=== PATIENT | female | born 1955 | race Caucasian/White ===

== ENCOUNTER → 2023-04-26 | Outpatient (CLI) | payer MEDICARE, SELFPAY ==
[2023-04-26 08:15] VITALS: PULSE 102; PULSE 104; PULSE 105; PULSE 106; PULSE 107; PULSE 110; PULSE 82; PULSE 93; O2SAT 93; O2SAT 94; O2SAT 95; O2SAT 96
--- NOTE | 2023-04-27 05:49 | WT_ITS ---
PSN 6 Minute Walk Test 6 Minute Walk Test 6 Minute Walk Test: 6 Minute Walk Test PSN:6-Minute Walk Test Start: 04/26/23 08:20 Freq: Status: Active Protocol: [id number] Document 04/26/23 08:15 AE (Rec: 04/26/23 08:24 [facility] Desktop) 6 Minute Walk Test Date Performed 04/26/23 Time Performed 08:15 Height 5 ft 5 in Weight: 101.151 kg Weight in Pounds 223.[address]: Dr Powell Assistive device used: None Pre-test Oxygen Delivery Method Room Air Pulse Ox 96 Pulse Rate (60-100) 82 Dyspnea Joe Scale (0-10) 0.5 Exertion Joe Scale (6-20) 6 1st minute Oxygen Delivery Method Room Air Pulse Ox 93 Pulse Rate (60-100) 102 H 2nd minute Oxygen Delivery Method Room Air Pulse Ox 94 Pulse Rate (60-100) 107 H 3rd minute Oxygen Delivery Method Room Air Pulse Ox 96 Pulse Rate (60-100) 106 H 4th minute Oxygen Delivery Method Room Air Pulse Ox 95 Pulse Rate (60-100) 104 H 5th minute Oxygen Delivery Method Room Air Pulse Ox 93 Pulse Rate (60-100) 105 H 6th minute Oxygen Delivery Method Room Air Pulse Ox 94 Pulse Rate (60-100) 110 H Dyspnea Joe Scale (0-10) 1 Exertion Joe Scale (6-20) 12 Post-test Oxygen Delivery Method Room Air Pulse Ox 96 Pulse Rate (60-100) 93 Full Laps Walked 18 Partial Lap, Number of Tiles Walked 8 Total Distance Walked (ft) 1070 Interpretation Interpretation: The patient was able to ambulate 1070 feet over the course of 6 minutes on room air with no assistive devices or breaks. The patient experienced no significant desaturation, but did have persistent tachycardia throughout testing with a peak heart rate of 110 bpm. These findings are consistent with a cardiovascular limitation exercise tolerance. Recommendations Recommendations: No supplemental oxygen is indicated at this time.
== END | disposition home or self-care (01) ==
LOC: PSN 07:57
PROVIDERS: PCP Nurse Practitioner Family; Referring Provider Internal Medicine Critical Care Medicine; Visit Provider Internal Medicine Critical Care Medicine
DX: J44.89 Other specified chronic obstructive pulmonary disease (principal)
CPT/HCPCS: 94618

== ENCOUNTER → 2025-01-02 | Outpatient (CLI) | payer MEDICARE, SELFPAY ==
--- NOTE | 2025-01-02 07:31 | US_ITS ---
PROCEDURE: ABD LIMITED W/ ELASTOGRAPHY REASON FOR EXAM: ELEVATED LFT. MASLD COMPARISON: None. TECHNIQUE: Procedure Code: [id number] Modality: US Procedure: ABD LIMITED W/ ELASTOGRAPHY Right upper quadrant abdominal ultrasound. [facility] ElastQ Imaging shear wave elastography for non-invasive assessment of liver tissue stiffness. Cristiane EPIQ Elite. FINDINGS: LIVER: Size: Unremarkable Length: 17.3 cm Echotexture: Diffusely echogenic suggesting fatty infiltration Contour: Normal Lesions: None identified Elastography: EQI Med: 5.8 kPa EQI Med Jc: 1.39 m/s IQR/Med: 26 %* GALLBLADDER: Along the anterior wall of the gallbladder, there is a 3 mm calcification. No evidence of gallstones. COMMON BILE DUCT: Normal measuring 4 mm . PANCREAS: Normal Visualized portions of the right kidney are unremarkable. No right upper quadrant ascites. Spleen: The spleen measures 12 cm x 5.1 cm 5.3 cm. No focal lesion is seen. US/ABD Limited w/ Elastography IMPRESSION: NO TO MILD HEPATIC FIBROSIS Fatty infiltration of the liver. 3 mm calcification along the anterior wall of the gallbladder. Reference Values: SRU <1.37 m/s (5.7kPa): No to mild fibrosis 1.37 m/s - 2.2 m/s: Moderate to severe fibrosis >2.2 m/s (15kPa): Significant fibrosis / cirrhosis METAVIR Score F2 or higher: 1.34 m/s (5.7kPa) F3 or higher: 1.55 m/s (7.3kPa) F4: 1.80 m/s (10kPa) * If the IQR/Med is >30%, the variance in the measurements is a large and the a ccuracy of the measurement may be in question. Reading Location: [facility]
--- OUTSIDE RECORDS SUMMARY | 2025-01-02 07:40 | XMS RPT_ITS | CCD ---
Author Organization [facility] Care Team Providers Care Exploration Manager Name Role Phone Lev Narayanan DO Unavailable Unavailable Naomi Fung Unavailable Unavailable PHYSICIAN, NONE Primary Care Physician Unavailab le LORSON DAMAGE APPRAISER-DIECAST MACHINE OPERATOR, NAOMI Primary Care Physician JUAN MANUELSON DAMAGE APPRAISER-DIECAST MACHINE OPERATOR, NAOMI Primary Care Physician Dr. Abdirahman Powell Attending Provider [phone] Maryjo BAKERY HELPER, BAKERY HELPER-C [place] Primary Care Provider Dr. Abdirahman Powell Referring Provider Dr. Abdirahman Powell Other Provider Dr. Mono Navarrete Attending Provider [phone] JUAN MANUELSON DAMAGE APPRAISER-DIECAST MACHINE OPERATOR, NAOMI Attending Unavail able LORSON DAMAGE APPRAISER-DIECAST MACHINE OPERATOR, [place] Primary Care Unavail able LORSON DAMAGE APPRAISER-DIECAST MACHINE OPERATOR, NAOMI Attending Unavail able LORSON DAMAGE APPRAISER-DIECAST MACHINE OPERATOR, [place] Primary Care Unavail able LORSON DAMAGE APPRAISER-DIECAST MACHINE OPERATOR, NAOMI Attending Unavail able LORSON DAMAGE APPRAISER-DIECAST MACHINE OPERATOR, [place] Primary Care Unavail able LORSON DAMAGE APPRAISER-DIECAST MACHINE OPERATOR, NAOMI Attending Unavail able LORSON DAMAGE APPRAISER-DIECAST MACHINE OPERATOR, [place] Primary Care Unavail able LORSON DAMAGE APPRAISER-DIECAST MACHINE OPERATOR, NAOMI Attending Unavail able LORSON DAMAGE APPRAISER-DIECAST MACHINE OPERATOR, [place] Primary Care Unavail able LORSON DAMAGE APPRAISER-DIECAST MACHINE OPERATOR, NAOMI Attending Unavail able LORSON DAMAGE APPRAISER-DIECAST MACHINE OPERATOR, [place] Primary Care Unavail able LORSON DAMAGE APPRAISER-DIECAST MACHINE OPERATOR, NAOMI Attending Unavail able LORSON DAMAGE APPRAISER-DIECAST MACHINE OPERATOR, [facility] Unavail able Lorson BAKERY HELPER-C, [place] Primary Care Provider Maryjo PAYAN-CNaomi Referring Provider [phone] Ibis PAYAN-Aure Fair Attending Provider Checo WYATT, Dr. Napoles Attending Provider [phone] LORSON DAMAGE APPRAISER-DIECAST MACHINE OPERATOR, [place] Primary Care Unavail able LORSON DAMAGE APPRAISER-DIECAST MACHINE OPERATOR, NAOMI Attending Unavail able LORSON DAMAGE APPRAISER-DIECAST MACHINE OPERATOR, [place] Primary Care Unavail able LORSON DAMAGE APPRAISER-DIECAST MACHINE OPERATOR, NAOMI Attending Unavail able LORSON DAMAGE APPRAISER-DIECAST MACHINE OPERATOR, NAOMI Attending Unavail able LORSON DAMAGE APPRAISER-DIECAST MACHINE OPERATOR, [place] Primary Care Unavail able LORSON DAMAGE APPRAISER-DIECAST MACHINE OPERATOR, NAOMI Attending Unavail able LORSON DAMAGE APPRAISER-DIECAST MACHINE OPERATOR, [place] Primary Care Unavail able LORSON DAMAGE APPRAISER-DIECAST MACHINE OPERATOR, NAOMI Attending Unavail able LORSON DAMAGE APPRAISER-DIECAST MACHINE OPERATOR, [place] Primary Care Unavail able LORSON DAMAGE APPRAISER-DIECAST MACHINE OPERATOR, NAOMI Attending Unavail able LORSON DAMAGE APPRAISER-DIECAST MACHINE OPERATOR, [place] Primary Care Unavail able OLIVER GONZALEZ MD Attending Unavailable LORSON DAMAGE APPRAISER-DIECAST MACHINE OPERATOR, [place] Primary Care Unavail able LORSON DAMAGE APPRAISER-DIECAST MACHINE OPERATOR, NAOMI Attending Unavail able LORSON DAMAGE APPRAISER-DIECAST MACHINE OPERATOR, [place] Primary Care Unavail able LORSON DAMAGE APPRAISER-DIECAST MACHINE OPERATOR, NAOMI Attending Unavail able LORSON DAMAGE APPRAISER-DIECAST MACHINE OPERATOR, [place] Primary Care Unavail able LORSON DAMAGE APPRAISER-DIECAST MACHINE OPERATOR, NAOMI Attending Unavail able LORSON DAMAGE APPRAISER-DIECAST MACHINE OPERATOR, [place] Primary Care Unavail able LORSON DAMAGE APPRAISER-DIECAST MACHINE OPERATOR, NAOMI Attending Unavail able LORSON DAMAGE APPRAISER-DIECAST MACHINE OPERATOR, [place] Primary Care Unavail able LORSON DAMAGE APPRAISER-DIECAST MACHINE OPERATOR, [place] Primary Care Unavail able LORSON DAMAGE APPRAISER-DIECAST MACHINE OPERATOR, NAOMI Attending Unavail able Baumann BAKERY HELPER, Aure Attending Unavailable Lorson BAKERY HELPER, [place] Primary Care Unavailable Lorson BAKERY HELPER, Naomi Referring Unavailable Lorson BAKERY HELPER, [place] Primary Care Unavailable Dony Kessler Attending Unavailable Lorson BAKERY HELPER, Naomi Referring Unavailable [place]on BAKERY HELPER, Naomi Referring Unavailable Laury Lorenzo Attending Unavailable Lorson BAKERY HELPER, [place] Primary Care Unavailable [place]on BAKERY HELPER, [place] Primary Care Unavailable Dony Kessler Attending Unavailable Dony Kessler Referring Unavailable Dony Kessler Attending Unavailable L[place]on BAKERY HELPER, [facility] Unavailable Lorson BAKERY HELPER, Naomi Referring Unavailable Allergies Allergy Classification Reported Allergen(s) Allergy Type Date of Onset Reaction(s) Facility (20 sources) Penicillins; Translations: [penicillins] Drug allergy 04-11-2023 Eruption of skin (disorder) [facility] Work Phone: Medications Current Medications Medication Drug Class(es) Dates Sig (Normalized) Sig (Original) albuterol 0.83 mg/ml inhalation solution (20 sources) beta2-Adrenergic Agonist Start: 08-27-2024 Albuterol Sulfate 2.5 mg /3 mL (0.083 %) solution for nebulization Active 2.5 mg INHALATION as needed August 27, 2024 12:00am Start: 05-21-2024 End: 09-18-2024 take 0.5 mL by inhalation four times daily as needed for wheezing albuterol 2.5 mg/0.5 mL (0.5%) inhalation solution Dose : 2.5 mg = 0.5 mL, Inhalation, QID, PRN as needed for wheezing, Corrected medication, X 30 day(s), # 30 EA, 3 Refill(s), 09/18/24 11:34:00 AM EDT, Pharmacy: [facility], 167.6, cm, 05/21/24 8:02:00 EST, Height, kg, 05/21/24 8:02:00 EST, Dosing Weight Start Date: 05/21/24 Stop Date: 09/18/24 Status: Ordered Quantity: 30.0 Unit: EA Repeat number: 4 Start: 05-21-2024 End: 06-20-2024 take 0.5 mL by inhalation every two hours as needed for wheezing albuterol 5 mg/mL (0.5%) inhalation solution Dose : 2.5 mg = 0.5 mL, Inhalation, q2h, PRN as needed for wheezing, # 30 mL, 0 Refill(s), Pharmacy: [facility], 167.6, cm, 05/21/24 8:02:00 EST, Height, kg, 05/21/24 8:02:00 EST, Dosing Weight Start Date: 05/21/24 Stop Date: 06/20/24 Status: Ordered Quantity: 30.0 Unit: mL Repeat number: 1 Start: 04-08-2023 Albuterol Sulf ate 90 mcg/actuation HFA aerosol inhaler Active 2 NMA INHALATION 6 times per day April 08, 2023 1:00am Start: 04-08-2023 Albuterol Sulf ate Active 2 PUFF INHALATION 6 times per day April 08, 2023 12:00am Start: 05-06-2021 take 2 puff(s) by in halation every four hours Proventil HFA MDI (90 mcg/inh) inhalation aerosol 2 puff(s), Inhalation, q4h, # 17 gram(s), 0 Refill(s), COVID-19 Fever Start Date: 05/06/21 Status: Ordered Start: 10-15-2019 albuterol 2.5 mg/3 mL (0.083%) inhalation solution INHALE 1 NEBULIZER SOLUTION EVERY 6 HOURS NEEDED. Start Date: 10/15/19 Status: Ordered Start: 10-15-2019 albuterol 2.5 mg/3 mL (0.083%) inhalation solution INHALE 1 NEBULIZER SOLUTION EVERY 6 HOURS NEEDED. Start Date: 10/15/19 Status: Ordered albuterol MDI (90 mcg/inh) CFC free inhalation aerosol (18 sources) Start: 06-01-2023 take 2 puff(s) by inhalation every four hours as needed for wheezing albuterol MDI (90 mcg/inh) CFC free inhalation aerosol 2 puff(s), Inhalation, q4h, PRN as needed for wheezing, # 8.5 gram(s), 0 Refill(s), Pharmacy: [facility], 167.6, cm, 06/01/23 7:28:00 EST, Height, kg, 06/01/23 7:28:00 EST, Dosing Weight Start Date: 06/01/23 Status: Ordered Quantity: 8.5 Unit: g Repeat number: 1 Start: 06-01-2023 take 2 puff(s) by in halation every four hours as needed for wheezing albuterol MDI (90 mcg/inh) CFC free inhalation aerosol 2 puff(s), Inhalation, q4h, PRN as needed for wheezing, # 8.5 gram(s), 0 Refill(s), Pharmacy: [facility], 167.6, cm, 06/01/23 7:28:00 EST, Height, kg, 06/01/23 7:28:00 EST, Dosing Weight Start Date: 06/01/23 Status: Ordered Start: 10-07-2021 take 2 puff(s) by in halation every four hours as needed for wheezing albuterol MDI (90 mcg/inh) CFC free inhalation aerosol 2 puff(s), Inhalation, q4h, PRN as needed for wheezing, # 8.5 gram(s), 0 Refill(s), Pharmacy: [facility], 168, cm, 10/07/21 7:06:00 EDT, Height Start Date: 10/07/21 Status: Ordered ascorbic acid 1000 mg oral capsule (20 sources) Vitamin C Start: 04-08-2023 take 1 g by mouth once daily Ascorbic Acid (Vitamin C) 1,000 mg capsule Active 1 g PO DAILY April 08, 2023 1:00am Start: 04-08-2023 take 1 g by mouth once daily A scorbic Acid (Vitamin C) Active 1 GM PO DAILY April 08, 2023 12:00am Start: 10-15-2019 Vitamin C Dose : 1,000 mg =, Chewed, qDay, 0 Refill(s) Start Date: 10/15/19 Status: Ordered Repeat number: 1 Start: 10-15-2019 Vitamin C Dose : 1,000 mg =, Chewed, qDay, 0 Refill(s) Start Date: 10/15/19 Status: Ordered aspirin 81 mg delayed release oral tablet (5 sources) Platelet Aggregation Inhibitor, Nonsteroidal Anti-inflammatory Drug Start: 05-04-2021 aspirin 81 mg ora l delayed release tablet Dose : 81 mg = 1 tab(s), Oral, Daily, # 30 tab(s), 0 Refill(s), Pharmacy: [facility], 168, cm, 01/21/21 7:06:00 EDT, Height, kg, 01/21/21 7:06:00 EDT, Dosing Weight Start Date: 05/04/21 Status: Ordered Start: 05-04-2021 aspirin 81 mg oral delayed release tablet Dose : 81 mg = 1 tab(s), Oral, Daily, # 30 tab(s), 0 Refill(s), Pharmacy: [facility], 168, cm, 01/21/21 7:06:00 EDT, Height, kg, 01/21/21 7:06:00 EDT, Dosing Weight Start Date: 05/04/21 Status: Ordered Blood Glucose Test Machine (7 sources) Start: 05-21-2024 Blood Glucose Test Machine See Instructions, Use glucometer daily as directed for blood sugar checks. Dispense insurance preferred device Test once daily E11.9, # 1 EA, 0 Refill(s), Pharmacy: [facility], 167.6, cm, 05/21/24 8:02:00 EST, Height, 107, kg, 05/21/24 8:02:00 EST, Dosing Weight Start Date: 05/21/24 Status: Ordered Quantity: 1.0 Unit: EA Repeat number: 1 Budesonide-Formoterol (4 sources) Corticosteroid, beta2-Adrenergic Agonist Start: 08-27-2024 Budesonide-Formotero l (Symbicort) 160-4.5 mcg/actuation HFA aerosol inhaler Active 2 NMA INHALATION TWICE A DAY 3 August 27, 2024 1:01pm Start: 07-14-2023 End: 08-27-2024 Budesonide-Formoterol (Symbi cassidy) 160-4.5 mcg/actuation HFA aerosol inhaler Discontinued 2 NMA INHALATION TWICE A DAY 3 July 14, 2023 10:16am August 27, 2024 1:02pm Start: 04-11-2023 End: 07-14-2023 Budesonide-Formoterol (Symbi cassidy) 160-4.5 mcg/actuation HFA aerosol inhaler Discontinued 2 NMA INHALATION TWICE A DAY 10.2 April 11, 2023 1:00am July 14, 2023 10:16am Start: 04-11-2023 take 1 puff(s) by in halation twice daily Budesonide-Formoterol (Symbicort) 160-4.5 mcg/actuation HFA aerosol inhaler Active 2 PUFF INHALATION TWICE A DAY 10.2 April 11, 2023 12:00am Calcium, Magnesium and Zinc oral tablet (6 sources) Start: 06-01-2023 take 1 tablet by mouth once daily Calcium, Magnesium and Zinc oral tablet Dose = 2 tab(s), Oral, qDay, 0 Refill(s) Start Date: 06/01/23 Status: Ordered Start: 06-01-2021 take 1 tablet by donna th once daily Calcium, Magnesium and Zinc oral tablet tab(s), Oral, qDay, 0 Refill(s) Start Date: 06/01/21 Status: Ordered cetirizine hydrochloride 10 mg oral tablet (9 sources) Histamine-1 Receptor Antagonist Start: 09-09-2021 cetirizine 10 mg oral tablet Dose : 10 mg = 1 tab(s), Oral, qDay, # 30 tab(s), 2 Refill(s), Pharmacy: [facility], 167.5, cm, 09/09/21 7:03:00 EDT, Height Start Date: 09/09/21 Status: Ordered cholecalciferol 0.05 mg oral capsule (1 source) Vitamin D Start: 08-27-2024 take 1 capsule by mouth once daily Cholecalciferol (Vitamin D3) 50 mcg (2,000 unit) capsule Active 50 ug PO daily August 27, 2024 12:00am docusate sodium 100 mg oral capsule (9 sources) Start: 06-01-2021 Dulcolax Stool Softener 100 mg oral capsule Dose : 100 mg = 1 cap(s), Oral, qDay, 0 Refill(s) Start Date: 06/01/21 Status: Ordered Start: 01-17-2015 End: 02-02-2015 take 2 capsules by mouth twice daily as needed for constipation Docusate Sodium (Dok) 100 MG capsule Discontinued 200 mg PO TWICE DAILY NEEDED as needed for Constipation January 17, 2015 11:08am February 02, 2015 8:44am doxycycline hyclate 100 mg oral capsule (1 source) Tetracycline-class Drug Start: 06-01-2021 End: 06-11-2021 doxycycline hyclate 100 mg oral capsule Dose : 100 mg = 1 cap(s), Oral, BID, may take with food to minimize abdominal discomfort., X 10 day(s), # 20 cap(s), 0 Refill(s), 06/11/21 16:55:00 EST, Pharmacy: [facility], Acute bacterial bronchitis, 168, cm, 06/01/21 14:38:00 EST, Height,... Start Date: 06/01/21 Stop Date: 06/11/21 Status: Ordered Elderberry preparation (10 sources) Start: 06-01-2021 elderberry 0 Refill(s) Start Date: 06/01/21 Status: Ordered ferrous sulfate 325 mg oral tablet (14 sources) Start: 10-15-2019 IRON (ferrous sulfate 325 mg) 65 mg oral tablet Dose : 325 mg = 1 tab(s), Oral, BIDM, Take with food., # 60 tab(s), 3 Refill(s) Start Date: 10/15/19 Status: Ordered Start: 01-14-2015 End: 02-02-2015 take 1 tablet by mouth once daily Ferrous Sulfate (Iron (Ferrous Sulfate)) 325 MG tablet Discontinued 325 mg PO DAILY January 14, 2015 12:00am February 02, 2015 8:44am fluticasone proprionate NASAL 50 mcg/ spray (2 sources) Start: 05-28-2020 take 1 dose nasal route twice daily fluticasone proprionate NASAL 50 mcg/ spray Dose = 2 spray(s), Nostril, each, BID, 0 Refill(s) Start Date: 05/28/20 Status: Ordered 12 hr guaiFENesin 600 mg extended release oral tablet (11 sources) Start: 06-01-2021 take 1 mg by mouth every twelve hours Mucinex 600 mg oral tablet, extended release mg = tab(s), Oral, q12h, 0 Refill(s) Start Date: 06/01/21 Status: Ordered Start: 06-01-2021 take 1 mg by mouth e very twelve hours Mucinex 600 mg oral tablet, extended release mg = tab(s), Oral, q12h, 0 Refill(s) Start Date: 06/01/21 Status: Ordered hydroCHLOROthiazide 25 mg oral tablet (20 sources) Thiazide Diuretic Start: 04-08-2023 End: 05-16-2025 hydroCHLOROthiazide 25 mg oral tablet Dose : 25 mg = 1 tab(s), Oral, qDay, # 90 tab(s), 3 Refill(s), Pharmacy: [facility], 167.6, cm, 05/21/24 8:02:00 EST, Height, kg, 05/21/24 8:02:00 EST, Dosing Weight Start Date: 05/21/24 Stop Date: 05/16/25 Status: Ordered Quantity: 90.0 Unit: tab(s) Repeat number: 4 Start: 01-21-2021 End: 04-02-2023 hydroCHLOROthiazide 25 mg or al tablet Dose : 25 mg = 1 tab(s), Oral, qDay, # 90 tab(s), 3 Refill(s), Pharmacy: [facility], 168, cm, 04/07/22 7:29:00 EST, Height, kg, 04/07/22 7:29:00 EST, Dosing Weight Start Date: 04/07/22 Stop Date: 04/02/23 Status: Ordered hydroCHLOROthiazide 12.5 mg / losartan potassium 50 mg oral tablet (3 sources) Thiazide Diuretic, Angiotensin 2 Receptor Jake Start: 08-20-2024 End: 12-18-2024 take 1 tablet by mouth once daily hydrochlorothiazide-losartan 12.5-50 mg oral tablet Dose = 1 tab(s), Oral, qDay, # 30 tab(s), 3 Refill(s), Pharmacy: [facility], 167, cm, 08/20/24 8:00:00 EDT, Height, kg, 08/20/24 8:00:00 EDT, Dosing Weight Start Date: 08/20/24 Stop Date: 12/18/24 Status: Ordered Quantity: 30.0 Unit: tab(s) Repeat number: 4 Inhalat.Spacing Dev,Large Mask (Optichamber Genevieve Lg Mask) spacer (1 source) Start: 07-14-2023 Inhalat.Spacing Dev,Large Ma sk (Optichamber Genevieve Lg Mask) spacer Active NMA .ROUTE .MEDSUPPLY July 14, 2023 12:00am As directed iron bisglycinate (11 sources) Start: 06-01-2023 iron bisglycinate See Instructions, 18 mg once daily, 0 Refill(s) Start Date: 06/01/23 Status: Ordered Repeat number: 1 Start: 06-01-2023 iron bisglycin ate See Instructions, 18 mg once daily, 0 Refill(s) Start Date: 06/01/23 Status: Ordered Iron Bisglycinate Chelate 28 mg iron capsule (1 source) Start: 09-13-2023 Iron Bisglycin ate Chelate 28 mg iron capsule Active 18 mg PO September 13, 2023 12:00am 24 hr mirabegron 50 mg extended release oral tablet (5 sources) beta3-Adrenerg ic Agonist Start: 05-04-2021 Myrbetriq 50 mg oral tablet, extended release Dose : 50 mg = 1 tab(s), Oral, qDay, 0 Refill(s) Start Date: 05/04/21 Status: Ordered predniSONE 50 mg oral tablet (1 source) Start: 05-06-2021 End: 05-11-2021 predniSONE 50 mg oral tablet Dose : 50 mg = 1 tab(s), PO, Daily, # 5 tab(s), 0 Refill(s), COVID-19 Fever Start Date: 05/06/21 Stop Date: 05/11/21 Status: Ordered Probiotic (2 sources) Start: 06-01-2023 Probiotic 0 Refill(s) Start Date: 06/01/23 Status: Ordered Qvar Redihaler 80 mcg/inh inhalation aerosol (2 sources) Start: 05-04-2021 End: 10-31-2021 take 1 dose by inhalation twice daily Qvar Redihaler 80 mcg/inh inhalation aerosol Dose = 2 puff(s), Inhalation, BID, 2 puffs, # 1 EA, 5 Refill(s), Pharmacy: [facility], 168, cm, 01/21/21 7:06:00 EDT, Height, kg, 01/21/21 7:06:00 EDT, Dosing Weight Start Date: 05/04/21 Stop Date: 10/31/21 Status: Ordered Spacer, inhaler (12 sources) Start: 01-17-2023 Spacer, inhale r See Instructions, 1 spacer for inhaler, # 1 EA, 0 Refill(s), Pharmacy: [facility], 167.2, cm, 01/17/23 8:50:00 EDT, Height, 105.3, kg, 01/17/23 8:50:00 EDT, Dosing Weight Start Date: 01/17/23 Status: Ordered Quantity: 1.0 Unit: EA Repeat number: 1 Start: 01-17-2023 Spacer, inhale r See Instructions, 1 spacer for inhaler, # 1 EA, 0 Refill(s), Pharmacy: [facility], 167.2, cm, 01/17/23 8:50:00 EDT, Height, 105.3, kg, 01/17/23 8:50:00 EDT, Dosing Weight Start Date: 01/17/23 Status: Ordered Symbicort 160 mcg-4.5 mcg/inh Inhaler (11 sources) Start: 06-01-2023 take 1 dose by inhalation twice daily Symbicort 160 mcg-4.5 mcg/inh Inhaler Dose = 2 puff(s), BID, 0 Refill(s) Start Date: 06/01/23 Status: Ordered Repeat number: 1 Start: 06-01-2023 take 1 dose by inhal ation twice daily Symbicort 160 mcg-4.5 mcg/inh Inhaler Dose = 2 puff(s), BID, 0 Refill(s) Start Date: 06/01/23 Status: Ordered zinc citrate 50 mg oral caps ule (2 sources) Start: 06-01-2023 zinc citrate 5 0 mg oral capsule 0 Refill(s) Start Date: 06/01/23 Status: Ordered Completed/Discontinued Medications Medication Drug Class(es) Dates Sig (Normalized) Sig (Original) acetaminophen 325 mg / oxyCODONE hydrochloride 5 mg oral tablet (4 sources) Opioid Agonist Start: 01-14-2015 End: 04-11-2023 Oxycodone-Acetamino phen 1 TABLET tablet Discontinued 2 {tbl} PO EVERY 4 HOURS NEEDED as needed for Pain February 02, 2015 8:45am April 11, 2023 10:42am Start: 01-14-2015 End: 04-11-2023 take 2 tablets by mouth every four hours as needed Oxycodone-Acetaminophen Discontinued 2 TABLET PO EVERY 4 HOURS NEEDED February 02, 2015 7:45am April 11, 2023 9:42am biotin 2.5 mg oral capsule (14 sources) Start: 04-08-2023 End: 08-26-2023 take 2 capsules by mouth once daily Biotin 2,500 mcg capsule Discontinued 5000 ug PO DAILY April 08, 2023 1:00am August 26, 2023 8:22am Start: 04-08-2023 take 5000 ug by mouth once tommy ly Biotin Active 5000 MCG PO DAILY April 08, 2023 12:00am Start: 09-09-2021 biotin 5000 mc g oral caps See Instructions, Oral Daily, 0 Refill(s) Start Date: 09/09/21 Status: Ordered calcium ascorbate 50 mg / ferrous asparto glycinate 50 mg / polysaccharide iron complex 100 mg / succinic acid 50 mg oral capsule (2 sources) Start: 02-02-2015 End: 09-13-2023 Iron Aspgl,Ps Complex-Vit C-Sa (Ferrex 150 Plus) 150 MG capsule Discontinued 150 mg PO DAILY WITH MEALS February 02, 2015 12:00am September 13, 2023 9:40am calcium carbonate 1250 mg / cholecalciferol 200 unt oral tablet (4 sources) Vitamin D Start: 02-02-2015 End: 08-26-2023 take 1 tablet by mouth once daily Calcium Carbonate-Vitamin D3 (Oyster Shell Calcium-Vit D3) 1 TABLET tablet Discontinued 1 {tbl} PO DAILY@08 0 February 02, 2015 12:00am August 26, 2023 8:23am Start: 01-14-2015 End: 02-02-2015 Calcium Carbonate-Vitamin D3 1 EACH tablet Discontinued 2 NMA PO DAILY January 14, 2015 12:00am February 02, 2015 8:43am Start: 01-14-2015 End: 02-02-2015 Calcium Carbonate-Vitamin D3 Discontinued 2 EACH PO DAILY January 13, 2015 11:00pm February 02, 2015 7:43am docusate sodium 50 mg / sennosides, assisted 8.6 mg oral tablet (2 sources) Start: 02-02-2015 End: 04-11-2023 take 1 tablet by mouth twice daily Sennosides-Docusate Sodium (Stool Softener-Stimulant Laxat) 1 TABLET tablet Discontinued 2 {tbl} PO TWICE A DAY 0 February 02, 2015 12:00am April 11, 2023 10:42am 0.4 ml enoxaparin sodium 100 mg/ml prefilled syringe (4 sources) Low Molecular Weight Heparin Start: 01-17-2015 End: 04-11-2023 Enoxaparin 40 MG/0.4 ML syringe Discontinued 40 mg SC DAILY@0600 14 February 02, 2015 8:45am April 11, 2023 10:43am 24 hr fexofenadine hydrochloride 180 mg / pseudoephedrine hydrochloride 240 mg extended release oral tablet (2 sources) alpha-Adrenergic Agonist, Histamine-1 Receptor Antagonist Start: 01-14-2015 End: 04-11-2023 take 1 tablet by mouth every twenty-fou r hours Fexofenadine-Pseudoephe drine (Ina-D 24 Hour) 1 EACH tablet extended release 24 hr Discontinued 1 NMA PO DAILY January 14, 2015 12:00am April 11, 2023 10:41am fluticasone propionate 0.05 mg/actuat metered dose nasal spray (20 sources) Corticosteroid Start: 06-01-2023 End: 09-29-2023 take 1 dose nasal route once daily fluticasone proprionate NASAL 50 mcg/ spray Dose = 2 spray(s), Nostril, each, qDay, # 3 EA, 3 Refill(s), Pharmacy: [facility], 167.6, cm, 06/01/23 7:28:00 EST, Height, kg, 06/01/23 7:28:00 EST, Dosing Weight Start Date: 06/01/23 Stop Date: 09/29/23 Status: Ordered Quantity: 3.0 Unit: EA Repeat number: 4 Start: 04-08-2023 Fluticasone Pr opionate 50 mcg/actuation spray,suspension Active INTRANASAL April 08, 2023 1:00am Start: 10-18-2022 End: 02-15-2023 take 2 puff(s) by inhalation twice daily Flovent HFA 110 mcg/inh inhalation aerosol 2 puff(s), Inhalation, BID, # 3 EA, 3 Refill(s), Pharmacy: [facility], 168, cm, 10/18/22 8:30:00 EDT, Height, kg, 10/18/22 8:30:00 EDT, Dosing Weight Start Date: 10/18/22 Stop Date: 02/15/23 Status: Ordered Start: 08-30-2022 End: 09-29-2022 take 2 puff(s) by inhalation twice daily Flovent HFA 110 mcg/inh inhalation aerosol 2 puff(s), Inhalation, BID, # 3 EA, 0 Refill(s), Pharmacy: [facility], 168, cm, 07/07/22 7:55:00 EDT, Height, kg, 07/07/22 7:55:00 EDT, Dosing Weight Start Date: 08/30/22 Stop Date: 09/29/22 Status: Ordered Start: 04-07-2022 End: 08-05-2022 take 1 dose nasal route once daily fluticasone proprionate NASAL 50 mcg/ spray Dose = 2 spray(s), Nostril, each, qDay, # 3 EA, 3 Refill(s), Pharmacy: [facility], 168, cm, 04/07/22 7:29:00 EST, Height Start Date: 04/07/22 Stop Date: 08/05/22 Status: Ordered Start: 04-07-2022 End: 05-07-2022 take 2 puff(s) by inhalation twice daily Flovent HFA 110 mcg/inh inhalation aerosol 2 puff(s), Inhalation, BID, # 3 EA, 0 Refill(s), Pharmacy: [facility], 168, cm, 04/07/22 7:29:00 EST, Height, kg, 04/07/22 7:29:00 EST, Dosing Weight Start Date: 04/07/22 Stop Date: 05/07/22 Status: Ordered Start: 09-09-2021 End: 04-05-2022 take 2 puff(s) by inhalation twice daily Flovent HFA 110 mcg/inh inhalation aerosol 2 puff(s), Inhalation, BID, # 1 EA, 5 Refill(s), Pharmacy: [facility], 168, cm, 10/07/21 7:06:00 EDT, Height, kg, 10/07/21 7:06:00 EDT, Dosing Weight Start Date: 10/07/21 Stop Date: 04/05/22 Status: Ordered Start: 05-28-2020 take 1 dose nasal ro katalina twice daily fluticasone proprionate NASAL 50 mcg/ spray Dose = 2 spray(s), Nostril, each, BID, 0 Refill(s) Start Date: 05/28/20 Status: Ordered Fluticasone Propionate (Flov ent Hfa) 110 mcg/actuation HFA aerosol inhaler (2 sources) Start: 04-08-2023 End: 04-11-2023 Fluticasone Propionate (Flov ent Hfa) 110 mcg/actuation HFA aerosol inhaler Discontinued 2 NMA INHALATION TWICE A DAY April 08, 2023 1:00am April 11, 2023 11:06am Start: 04-08-2023 End: 04-11-2023 take 1 puff(s) by inhalation twice daily Fluticasone Propionate (Flovent Hfa) 110 mcg/actuation HFA aerosol inhaler Discontinued 2 PUFF INHALATION TWICE A DAY April 08, 2023 12:00am April 11, 2023 10:06am gabapentin 300 mg oral capsule (2 sources) Anti-epileptic Agent Start: 02-02-2015 End: 04-11-2023 take 1 capsule by mouth at bedtime Gabapentin 300 MG capsule Discontinued 300 mg PO AT BEDTIME February 02, 2015 12:00am April 11, 2023 10:42am hydroCHLOROthiazide 12.5 mg / lisinopril 10 mg oral tablet (4 sources) Thiazide Diuretic, Angiotensin Converting Enzyme Inhibitor Start: 01-14-2015 End: 07-14-2023 take 1 tablet by mouth once daily Lisinopril-Tatums chlorothiazide (Zestoretic) 1 TABLET tablet Discontinued 1 {tbl} PO DAILY January 17, 2015 11:13am July 14, 2023 10:00am Hold if systolic blood pressures less than 110 mmhg K2 Plus D3 (2 sources) Start: 06-01-2023 K2 Plus D3 D3 1000 IU and K2 45 mcg, 0 Refill(s) Start Date: 06/01/23 Status: Ordered omeprazole 20 mg delayed release oral capsule (2 sources) Proton Pump Inhibitor Start: 01-14-2015 End: 04-11-2023 take 1 capsule by mouth every other day Omeprazole 20 MG capsule Discontinued 20 mg PO EVERY OTHER DAY January 14, 2015 12:00am April 11, 2023 10:42am ondansetron 4 mg disintegrating oral tablet (2 sources) Serotonin-3 Receptor Antagonist Start: 01-14-2015 End: 02-02-2015 take 1 tablet by mouth every eight hours as needed for nausea Ondansetron 4 MG tablet Discontinued 4 mg PO EVERY 8 HOURS NEEDED as needed for Nausea January 14, 2015 12:00am February 02, 2015 8:44am Problems Active Problems Problem Classification Problem Date Documented Date Episodic/Chronic Abdominal hernia (14 sources) Hiatal hernia 10-18-2022 Episodic Asthma (20 sources) Asthma; Translations: [Asthma-chronic obstructive pulmonary disease overlap syndrome] 05-28-2020 Chronic Chronic kidney disease (2 sources) Chronic kidney disease stage 3; Translations: [Chronic kidney disease, stage III (moderate)] 01-14-2015 Chronic Chronic obstructive pulmonary disease and bronchiectasis (14 sources) Chronic obstructive lung disease; Translations: [Chronic obstructive pulmonary disease, unspecified] 04-11-2023 Chronic Complications of surgical procedures or medical care (20 sources) Postsurgical menopause 10-15-2019 Chronic Deficiency and other anemia (20 sources) Iron deficiency anemia 10-15-2019 Episodic Deficiency and other anemia (20 sources) Microcytic anemia 10-15-2019 Episodic Deficiency and other anemia (2 sources) Anemia, unspecified; Translations: [Anemia, unspecified] Onset: 11-16-2023 Episodic Deficiency and other anemia (4 sources) Iron deficiency anemia, unspecified; Translations: [Iron deficiency anemia, unspecified] Onset: 01-10-2023 Episodic Diabetes mellitus without complication (9 sources) Type 2 diabetes mellitus; Translations: [Type 2 diabetes mellitus without complications] Onset: 10-29-2024 05-21-2024 Chronic Diseases of white blood cells (15 sources) Leukopenia 07-07-2022 Chronic Esophageal disorders (20 sources) Gastroesophageal reflux disease without esophagitis; Translations: [Gastroesophageal reflux disease] 10-15-2019 Chronic Essential hypertension (20 sources) Hypertensive disorder; Translations: [Essential (primary) hypertension] Onset: 06-01-2023 06-11-2020 Chronic Fever of unknown origin (20 sources) Fever; Translations: [Fever, unspecified] Onset: 05-06-2021 Episodic Genitourinary symptoms and ill-defined conditions (10 sources) Increased frequency of urination; Translations: [Microalbuminuria] 01-21-2021 Episodic Heart valve disorders (18 sources) Aortic valve sclerosis 10-07-2021 Chronic Heart valve disorders (20 sources) Heart murmur 09-09-2021 Episodic Joint disorders and dislocations; trauma-related (2 sources) Dislocation of unspecified ankle joint, initial encounter; Translations: [Dislocation of ankle] 02-11-2015 Episodic Malaise and fatigue (16 sources) Fatigue 04-07-2022 Episodic Nonmalignant breast conditions (10 sources) Large breast; Translations: [Hypertrophy of breast] 08-31-2023 Episodic Osteoarthritis (20 sources) Osteoarthritis 10-15-2019 Chronic Other bone disease and musculoskeletal deformities (7 sources) Osteopenia 11-23-2023 Episodic Other diseases of bladder and urethra (18 sources) Overactive bladder 10-07-2021 Chronic Other endocrine disorders (1 source) Hypoglycemia; Translations: [Hypoglycemia, unspecified] Onset: 05-06-2021 Chronic Other inflammatory condition of skin (1 source) Intertrigo; Translations: [Erythema intertrigo] 09-13-2023 Episodic Other injuries and conditions due to external causes (14 sources) Motion sickness 10-18-2022 Episodic Other liver diseases (9 sources) Elevated liver enzymes level 08-31-2023 Episodic Other liver diseases (3 sources) Abnormal levels of other serum enzymes; Translations: [Abnormal levels of other serum enzymes] Onset: 10-29-2024 Episodic Other lower respiratory disease (1 source) Hypoxemia; Translations: [Hypoxemia] Onset: 05-06-2021 Episodic Other lower respiratory disease (20 sources) Dyspnea; Translations: [Shortness of breath] Episodic Other non-traumatic joint disorders (20 sources) Ankle pain 10-15-2019 Episodic Other non-traumatic joint disorders (20 sources) Shoulder pain 10-15-2019 Episodic Other nutritional; endocrine; and metabolic disorders (20 sources) Body mass index 30+ - obesity 06-26-2020 Chronic Other nutritional; endocrine; and metabolic disorders (4 sources) Obesity; Translations: [Obesity, unspecified] 02-11-2015 Chronic Other nutritional; endocrine; and metabolic disorders (7 sources) Obese class III 05-21-2024 Chronic Other nutritional; endocrine; and metabolic disorders (3 sources) Morbid (severe) obesity due to excess calories; Translations: [Morbid (severe) obesity due to excess calories] Onset: 10-29-2024 Chronic Other screening for suspected conditions (not mental disorders or infectious disease) (8 sources) Patient encounter status; Translations: [Special screening for malignant neoplasms of colon] Onset: 11-16-2023 01-21-2021 Episodic Other upper respiratory disease (20 sources) Allergic rhinitis 09-09-2021 Chronic Other upper respiratory infections (1 source) Acute upper respiratory infection 04-07-2022 Episodic Residual codes; unclassified (20 sources) Obstructive sleep apnea syndrome; Translations: [Obstructive sleep apnea (adult) (pediatric)] 09-09-2021 Chronic Comment on above: AutoPap 5-15 cmH2O Residual codes; unclassified (20 sources) Flushing 10-15-2019 Episodic Residual codes; unclassified (18 sources) Postmenopausal state 10-07-2021 Episodic Residual codes; unclassified (2 sources) History of operation on musculoskeletal system; Translations: [Other specified postprocedural states] 02-11-2015 Episodic Comment on above: 01/14/15, left ankle, dr draper Spondylosis; intervertebral disc disorders; other back problems (1 source) Chronic back pain ; Translations: [Dorsalgia, unspecified] 09-13-2023 Episodic Unclassified (20 sources) Patient encounter status 06-26-2020 Unclassified (20 sources) Chronic [id number] syndrome 09-09-2021 Unclassified (1 source) Obesity, class 2; Translations: [Obesity, class 2] Onset: 12-31-2024 Past or Other Problems Problem Classification Problem Date Documented Da te Episodic/Chronic Diabetes mellitus without complication (20 sources) Hyperglycemia; Translations: [Prediabetes] Onset: 11-16-2023 10-07-2021 Episodic Other bone disease and musculoskeletal deformities (2 sources) Other specified disorders of bone density and structure, unspecified site; Translations: [Other specified disorders of bone density and structure, unspecified site] Onset: 08-13-2024 Episodic Unclassified (1 source) Post-acute COVID-19; Translations: [Post COVID-19 condition, unspecified] Viral infection (1 source) Disease caused by 2019-nCoV; Translations: [COVID-19] Onset: 05-06-2021 NEGATED: Highlighted row has not occurred!Residual codes; unclassified (1 source) Disease Episodic Results Test Name Value Interpretation Reference Range Facility [facility] 10-30-2024 Hep A IgM Ab Non-Reactive Normal Non-Reactiv e [facility] Comment on above: Performed By: #### A 1C, GFR, CMP, VIDH #### [address] [address] #### HEPAC #### [facility] [address] [place] [address] Hep A IgM Ab Int See Interp Normal [facility] Comment on above: Result Comment: Clinical Interpretation: No serological evidence of a current Hepatitis A infection. Performed By: #### A 1C, GFR, CMP, VIDH #### [address] [address] #### HEPAC #### [address] [address] Hep B Core IgM Ab Non-Reactive Normal Non-Reacti v [facility] Comment on above: Performed By: #### A 1C, GFR, CMP, VIDH #### [place] [address] #### HEPAC #### [place] [address] Hep B Core IgM Ab Int See [facility] Comment on above: Result Comment: Clinical Interpretation: Samples with a value < 0.80 Index are considered nonreactive (negative) for IgM antibodies to hepatitis B core antigen. Performed By: #### A 1C, GFR, CMP, VIDH #### [place] [address] #### HEPAC #### [place] [address] Hep B Surf Ag Non-Reactive Normal Non-Reactiv [facility] Comment on above: Performed By: #### A 1C, GFR, CMP, VIDH #### [place] [address] #### HEPAC #### [place] [address] Hep C Ab Non-Reactive Normal Non-Reactiv [facility] Comment on above: Performed By: #### A 1C, GFR, CMP, VIDH #### [place] [address] #### HEPAC #### [place] [address] Hep C Ab Int See [facility] Comment on above: Result Comment: Clinical Interpretation: Nonreactive: Samples with a value < 0.80 are considered nonreactive (negative) for antibodies to HCV. A negative test result does not exclude the possibility of exposure to or infection with HCV. HCV antibodies may be undetectable in some stages of the infection and in some clinical conditions. Performed By: #### A 1C, GFR, CMP, VIDH #### [place] [address] #### HEPAC #### [address] [address] .GFRon 10-29-2024 Estimated Glomerular Filtration Rate 77 ml/min/1.73sqm Normal [facility] Comment on above: Result Comment: Stages of Chronic Kidney Disease (CKD) Stage Description eGFR(ml/min/1.73 sq.m.) CKD 1 Normal kidney function or >=90 normal kindney function with possible kidney damage (ex. Proteinuria) CKD 2 Kidney damage with mild loss 60-89 of kidney function CKD 3a Mild to moderate loss of kidney 45-59 function CKD 3b Moderate to severe loss of 30-44 of kindey function CKD 4 Severe loss of kidney function 15-29 CKD 5 Kidney failure <15 Note: (go live 2024) the eGFR calculation was updated to the 2020 CKD-EPI creatinine equation without a race factor to calculate the eGFR results. Performed By: #### A 1C, GFR, CMP, VIDH #### [address] [address] #### HEPAC #### [place] [id number] A1Con 10-29-2024 Glucose [Mass/Vol] 126 mg/dL Normal [facility] Comment on above: Result Comment: Soha mated Average Glucose calculated by equation ((28.7xA1C)-46.7) Estimated average glucose (eAG) is a calculated value from Hemoglobin A1C and is software sales representative of the average blood glucose level in the last 2-3 month period. Normal range: less than 114 mg/dL Performed By: #### A 1C, GFR, CMP, VIDH #### [address] [address] #### HEPAC #### [place] [address] HbA1c (Bld) [Mass fraction] 6.0 % Normal 4.3-6.4 [facility] Comment on above: Performed By: #### A 1C, GFR, CMP, VIDH #### [address] [address] #### HEPAC #### [place] [id number] CMPon 10-29-2024 Albumin Level 3.7 G/dL Normal 3.4-4.8 [facility] Comment on above: Performed By: #### A 1C, GFR, CMP, VIDH #### [place] [address] #### HEPAC #### [place] [address] Albumin/Globulin [Mass ratio] 0.9 {ratio} Low 1.1-2.5 [facility] Comment on above: Performed By: #### A 1C, GFR, CMP, VIDH #### [place] [address] #### HEPAC #### [place] [address] ALP [Catalytic activity/Vol] 85 U/L Normal 40-135 [facility] Comment on above: Performed By: #### A 1C, GFR, CMP, VIDH #### [place] [address] #### HEPAC #### [address] [address] ALT [Catalytic activity/Vol] 70 U/L High 14-59 [facility] Comment on above: Performed By: #### A 1C, GFR, CMP, VIDH #### [place] [address] #### HEPAC #### [place] [id number] AST [Catalytic activity/Vol] 49 U/L High 10-40 [facility] Comment on above: Performed By: #### A 1C, GFR, CMP, VIDH #### [place] [address] #### HEPAC #### [place] [address] Bili Total 0.4 mg/dL Normal 0.2-1.0 [facility] Comment on above: Result Comment: Use of this assay is not recommended for patients undergoing treatment with eltrombopag due to the potential for falsely elevated results. Performed By: #### A 1C, GFR, CMP, VIDH #### [place] [address] #### HEPAC #### [address] [address] BUN/Creatinine Ratio 20 ratio Normal 7-27 [facility] Comment on above: Performed By: #### A 1C, GFR, CMP, VIDH #### [place] [address] #### HEPAC #### [address] [address] Calcium [Mass/Vol] 8.9 mg/dL Normal 8.4-10.2 [facility] Comment on above: Performed By: #### A 1C, GFR, CMP, VIDH #### [place] [address] #### HEPAC #### [address] [address] Chloride [Moles/Vol] 108 mmol/L High 98-107 [facility] Comment on above: Performed By: #### A 1C, GFR, CMP, VIDH #### [place] [address] #### HEPAC #### [address] [address] CO2 [Moles/Vol] 28 mmol/L Normal 23-31 [facility] Comment on above: Performed By: #### A 1C, GFR, CMP, VIDH #### [place] [address] #### HEPAC #### [address] [address] Creatinine [Mass/Vol] 0.83 mg/dL Normal 0.51-0.95 [facility] Comment on above: Performed By: #### A 1C, GFR, CMP, VIDH #### [place] [address] #### HEPAC #### [address] [address] Electrolyte Balance 9.0 mEq/L Normal 4.0-15.0 [facility] Comment on above: Performed By: #### A 1C, GFR, CMP, VIDH #### [address] [address] #### HEPAC #### [address] [address] Globulin 4.2 G/dL Normal 2.7-4.4 [facility] Comment on above: Performed By: #### A 1C, GFR, CMP, VIDH #### [address] [address] #### HEPAC #### [address] [address] Glucose [Mass/Vol] 119 mg/dL High 80-115 [facility] Comment on above: Performed By: #### A 1C, GFR, CMP, VIDH #### [place] [address] #### HEPAC #### [address] [address] Potassium [Moles/Vol] 4.1 mmol/L Normal 3.5-5.1 [facility] Comment on above: Performed By: #### A 1C, GFR, CMP, VIDH #### [address] [address] #### HEPAC #### [address] [address] Sodium [Moles/Vol] 145 mmol/L Normal 136-145 [facility] Comment on above: Performed By: #### A 1C, GFR, CMP, VIDH #### [place] [address] #### HEPAC #### [address] [address] Total Protein 7.9 G/dL Normal 6.4-8.2 [facility] Comment on above: Performed By: #### A 1C, GFR, CMP, VIDH #### [address] [address] #### HEPAC #### [address] [address] Urea nitrogen [Mass/Vol] 17 mg/dL Normal 7-18 [facility] Comment on above: Performed By: #### A 1C, GFR, CMP, VIDH #### [address] [address] #### HEPAC #### [address] [address] LABORATORYOrdered By: SYSTEM SYSTEM on 10-29-2024 25-hydroxyvitamin D3 [Mass/Vol] 37.0 ng/mL Invalid Interpretation Code AO ADM SS Comment on above: Interpretive Data: I nterpretive Values Based on Total 25(OH) Vitamin D: Deficient <20 ng/mL Insufficient 20 - <30 ng/mL Sufficient 30-100 ng/mL Albumin BCP dye [Mass/Vol] 3.7 G/dL Normal 3.4 - 4.8 G/dL AO ADM SS Albumin/Globulin [Mass ratio] 0.9 {ratio} Low 1.1 - 2.5 ratio AO ADM SS ALP [Catalytic activity/Vol] 85 U/L Normal 40 - 135 U/L AO ADM SS ALT With P-5'-P [Catalytic activity/Vol] 70 U/L High 14 - 59 U/L AO ADM SS AST With P-5'-P [Catalytic activity/Vol] 49 U/L High 10 - 40 U/L AO ADM SS Bilirubin [Mass/Vol] 0.4 mg/dL Normal 0.2 - 1 .0 mg/dL AO ADM SS Comment on above: Interpretive Data: U se of this assay is not recommended for patients undergoing treatment with eltrombopag due to the potential for falsely elevated results. Calcium [Mass/Vol] 8.9 mg/dL Normal 8.4 - 10. 2 mg/dL AO ADM SS Chloride [Moles/Vol] 108 mmol/L High 98 - 10 7 mmol/L AO ADM SS CO2 [Moles/Vol] 28 mmol/L Normal 23 - 31 mmol/L AO ADM SS Creatinine [Mass/Vol] 0.83 mg/dL Normal 0.51 - 0.95 mg/dL AO ADM SS Electrolyte Balance 9.0 mEq/L Normal 4.0 - 15 .0 mEq/L AO ADM SS Estimated Glomerular Filtration Rate 77 ml/min/1.73sqm Invalid Interpretation Code AO Chemistry S Comment on above: Interpretive Data: Stages of Chronic Kidney Disease (CKD) Stage Description eGFR(ml/min/1.73 sq.m.) CKD 1 Normal kidney function or >=90 normal kindney function with possible kidney damage (ex. Proteinuria) CKD 2 Kidney damage with mild loss 60-89 of kidney function CKD 3a Mild to moderate loss of kidney 45-59 function CKD 3b Moderate to severe loss of 30-44 of kindey function CKD 4 Severe loss of kidney function 15-29 CKD 5 Kidney failure <15 Note: (go live 2024) the eGFR calculation was updated to the 2020 CKD-EPI creatinine equation without a race factor to calculate the eGFR results. Globulin 4.2 G/dL Normal 2.7 - 4.4 G/dL AO ADM SS Glucose [Mass/Vol] 119 mg/dL High 80 - 115 mg/dL AO ADM SS Glucose [Mass/Vol] 126 mg/dL Invalid Interpretation Code AO Chemistry S Comment on above: Interpretive Data: E stimated average glucose (eAG) is a calculated value from Hemoglobin A1C and is software sales representative of the average blood glucose level in the last 2-3 month period. Normal range: less than 114 mg/dL HbA1c (Bld) [Mass fraction] 6.0 % Normal 4.3 - 6.4 % AO ADM SS Potassium [Moles/Vol] 4.1 mmol/L Normal 3.5 - 5.1 mmol/L AO ADM SS Protein [Mass/Vol] 7.9 G/dL Normal 6.4 - 8.2 G/dL AO ADM SS Sodium [Moles/Vol] 145 mmol/L Normal 136 - 145 mmol/L AO ADM SS Urea nitrogen [Mass/Vol] 17 mg/dL Normal 7 - 18 mg/dL AO ADM SS Urea nitrogen/Creatinine [Mass ratio] 20 ratio Normal 7 - 27 ratio AO ADM SS LABORATORYOrdered By: Jeff Wilson on 10-29-2024 HAV IgM IA Ql See Interp 6 *NA* (10/29/24 12:42 PM) Invalid Interpretation Code AH Chemistry S Comment on above: Result Comment: Clinical Interpretation: No serological evidence of a current Hepatitis A infection. HAV IgM IA Ql Non-Reactive (10/29/24 12:42 PM) Normal Non-Reactiv e AH ADM SS HBV core IgM IA Ql See Interp 5 *NA* (10/29/24 12:42 PM) Invalid Interpretation Code Chemistry S Comment on above: Result Comment: Clinical Interpretation: Samples with a value < 0.80 Index are considered nonreactive (negative) for IgM antibodies to hepatitis B core antigen. HBV core IgM IA Ql Non-Reactive (10/29/24 12:42 PM) Normal Non-Reactiv e AH ADM SS HBV surface Ag IA Ql Non-Reactive (10/29/24 12:42 PM) Normal Non-Reactiv e AH ADM SS HCV Ab IA Ql Non-Reactive (10/29/24 12:42 PM) Normal Non-Reactiv e AH ADM SS HCV Ab IA Ql See Interp 7 *NA* (10/29/24 12:42 PM) Invalid Interpretation Code Chemistry S Comment on above: Result Comment: Clinical Interpretation: Nonreactive: Samples with a value < 0.80 are considered nonreactive (negative) for antibodies to HCV. A negative test result does not exclude the possibility of exposure to or infection with HCV. HCV antibodies may be undetectable in some stages of the infection and in some clinical conditions. VIon 10-29-2024 Vit. D 25-Hydroxy 37.0 ng/mL Normal [facility] Comment on above: Result Comment: Inte rpretive Values Based on Total 25(OH) Vitamin D: Deficient <20 ng/mL Insufficient 20 - <30 ng/mL Sufficient 30-100 ng/mL Performed By: #### A 1C, GFR, CMP, VIDH #### [address] [address] #### HEPAC #### [facility] [address] [place] [address] Gastroenterology Visit Repor ton 10-05-2024 Gastroenterology Visit Report [facility] [address] [place] [address] OFFICE VISIT Date of Service: 10/05/24 MR#: [id number] Acct: [id number] Name: TAM MOYA Rep #: [id number] : 1955 Provider: Dr. Dony parrish MD Age/Sex: 69/F Location[place] [facility] [place] Status: Signed Intake Vital Signs 08/27/24 08:09 10/05/24 12:56 Height 5 ft 5.5 in 5 ft 5.5 in Weight: 230 lb 228 lb BMI 37.7 37.3 BP 108/54 L 120/74 Blood Pressure Location Lt brachial Lt brachial Position Sitting Respiration 18 Pulse 78 88 Pulse Source Monitor Temp 97.4 F L Pulse Oximetry (%) 97 94 Oxygen Delivery Method room air room air Intake Visit Reasons: Elevated LFTs Chief Complaint: Elevated LFTs Allergies Penicillins Allergy (Verified 10/05/24 12:52) Rash Medications ???Medication ???Instructions ???Recorded ???Confirmed ???Type albuterol sulfate 90 mcg/actuation 2 puff inhalation 6XD 04/08/23 0 10/02/24 History aerosol inhaler ascorbic acid (vitamin C) 1,000 mg 1 g PO DAILY 04/08/23 10/02/24 H istory capsule fluticasone propionate 50 intranasal 04/08/23 10/02/24 Histo ry mcg/actuation nasal spray,suspension inhalat.spacing dev,large mask #1 ea 07/14/23 10/02/24 History ([facility] with Large Mask) iron bisglycinate chelate 18 mg PO 09/13/23 10/02/24 History albuterol sulfate 2.5 mg/3 mL 2.5 mg inhalation PRN 08/27/2402/16 History (0.083 %) solution for nebulization budesonide-formoterol HFA 160 2 puff inhalation BID #3 ea 10/02/24 Rx mcg-4.5 mcg/actuation aerosol inhaler (Symbicort) cholecalciferol (vitamin D3) 50 50 mcg PO QDAY 08/27/24 10/02/24 H istory mcg (2,000 unit) capsule losartan 50 mg-hydrochlorothiazide 1 tab PO QDAY 08/27/24 10/02/24 History 12.5 mg tablet Have you fallen in the past year?: No PFSH Medical History Aortic valve sclerosis Osteopenia Elevated LFTs Type 2 diabetes mellitus History of anemia Seasonal allergies Surgical History History of knee surgery History of ankle surgery History of hysterectomy Family History Mother Asthma Heart disease heart failure Hypertension Father Heart disease heart attack- Social History Smoking Status: Former smoker how long ago did patient quit smoking: pt quit in 1996 alcohol intake: current details: glass a wine twice a month-social substance use type: does not use additional social history: pt denies vaping, denies marijuana use, denies edibles, denies aspirin, denies ibuprofen HPI HPI Chief Complaint: Elevated LFTs Details: TAM MOYA, is a 69 F who presents to the office today for intial consult. PCP referred for elevated LFTs. Patient denies any symptoms of abdominal pain discomfort, nausea, vomiting or GI bleed. Bowel movement regular. Denies burning pain/dysuria or new lower urinary tract symptoms. Social history: Patient started smoking less than a a pack per day at age of 20 and then quit cold turkey in 1996. She was smoking a pack or more when she quit. Alcohol: Not big drinker anytime. She was occasionally drinking wine twice a month but for last 2 to 3 months she has not been drunken Denies substance use ever US ABD 2.12.25- Hepatic steatosis or other diffuse hepatocellular disease. No acute findings 4.21.25 Fib-4 1.47 ROS Const Constitutional: No fatigue, fever(s) or weight change ENT ENT: No difficulty swallowing Resp Respiratory: No shortness of breath or wheezing Cardio Cardiology: No chest pain at rest or dyspnea on exertion Gastro GI: No abdominal pain, belching, bloating, change in bowel habits, change in stool character, coffee ground emesis, constipation, cramping, diarrhea, heartburn, difficulty swallowing, feeling full early, excessive flatus, incontinent of stools, Vomiting blood/hematemesis, Blood in stool, loose stools, Black,tarry stools, nausea/dyspepsia, pain with swallowing, vomiting or other Genitourinary-Female: No difficulty urinating or burning urination Musc Musculoskeletal: Positive for abnormal gait, joint pain, muscle weakness, stiffness and Arthritis Skin Skin: No yellowing of the eye or itchy eyes Neuro Neurology: Positive for abnormal gait Psych Psychiatric: No anxiety and No depression Endo Endocrine: No fatigue or weight change Aller/Imm Allergy/Immunologic: No itchy eyes or wheezing Candelario/Lymp Hematologic/Lymphatic: Positive for easy bruising; No easy bleeding Exam Const General: cooperative, no acute distress and well developed Nutritional Appearan (more content not included)... Normal [facility] Pulmonary Visit Reporton Pulmonary Visit Report [facility] [address] [place] [address] OFFICE VISIT Date of Service: 08/27/24 MR#: [id number] Acct: [id number] Name: TAM MOYA Rep #: [id number] : 1955 Provider: HORTENCIA Baumann Age/Sex: 69/F [place] [facility] [place] Status: Signed Assessment and Plan Assessment and Plan (1) Asthma-COPD overlap syndrome: Status: Chronic Plan: Stable, she does not appear to be an exacerbation of asthma/COPD today. No need for prednisone or antibiotic. Continue current maintenance medication, currently symptomatically controlled with use of Symbicort usually once daily. No additional testing at this time. Contact the office for any new or worsening symptoms. An acute visit and typically be arranged within 1-2 days. Follow-up in 1 year. (2) Obstructive sleep apnea: Status: Chronic Comment: AutoPap 5-15 cmH2O Plan: She is using and benefiting from Pap therapy. No indication for titration study at this time. Continue to encourage weight loss. Contact the office for any new or worsening symptoms in the meantime. Follow-up in 1 year. (3) Obesity: Status: Chronic Qualifiers: Obesity type: due to excess calories Obesity classification: adult class 2 (BMI 35 - 39.9) Serious obesity comorbidity presence: with serious comorbidity Body mass index: BMI 37.0-37.9 Qualified Code(s): E66.812 - Obesity, class 2; E66.01 - Morbid (severe) obesity due to excess calories; Z68.37 - Body mass index [BMI] 37.0-37.9, adult Plan: Complicates exam, plan, care and prognosis. The patient reports that she is actively trying to lose weight by dietary modification and exercise. She was recently diagnosed as prediabetic. She is happy to report that with some dietary changes she has already dropped her hemoglobin A1c 4 points. 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 Medications: Refilled budesonide-formoterol 160-4.5 mcg/actuation (Symbicort) 2 puffs inhalation BID 3 ea 3RF Plan Details Additional Comments: This note was generated with [employer] dictation software. It may contain incorrect words, spelling, and punctuation that were not noted in checking the note before signing. Follow Up: 1 Year HPI 1 Y FU Chief Complaint: Routine follow-up HPI Comments Details: This patient presents to the office today for follow-up of her asthma/COPD overlap syndrome with obstructive sleep apnea. She is ambulatory and currently on room air. She has not recently been seen in the ED or urgent care for any respiratory illness. She has not required any antibiotics or prednisone for any breathing problems. She is compliant with use of Symbicort 2 puffs once daily. She does report rinsing her mouth out after each use. She denies any medication side effect such as sore throat or thrush. She is also compliant with Flonase daily in the spring. She has not needed albuterol rescue inhaler. She denies any difficulty with shortness of breath. She denies any cough, sputum production or hemoptysis. She denies any wheezing, chest tightness, chest pain or palpitations. She also denies any fever, chills or body aches. She wakes up feeling rested refreshed with use of her Pap device. She is not having difficulty with excessive nocturia. She does admit to some dry mouth. She is not having mask leaks. She denies requiring naps or nodding off to sleep unintentionally. Compliance report for the past 30 days shows 100% compliance with an average use of 6 hours and 17 minutes per night. Current setting is AutoPap 4 to 20 cm of water with pressures typically being utilized at 8.2-12.9 cm of water. Residual AHI of 1.0 events per hour. Leaks do not appear to be an issue. 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 Normal [facility] .Auto Diffon 08-13-2024 Basophil, Absolute 0.0 10 3/mcL Normal 0.0-0.3 [facility] Comment on above: Performed By: #### A 1C, GFR, CMP, VIDH #### [address] [address] #### HEPAC #### [address] [address] Basophils/100 WBC (Bld) 0.4 % Normal 0.0-2.5 [facility] Comment on above: Performed By: #### A 1C, GFR, CMP, VIDH #### [address] [address] #### HEPAC #### [address] [address] Eosinophil, Absolute 0.2 10 3/mcL Normal 0.0-0.7 [facility] Comment on above: Performed By: #### A 1C, GFR, CMP, VIDH #### [address] [address] #### HEPAC #### [address] [address] Eosinophils/100 WBC (Bld) 3.4 % Normal 0.0-6.0 [facility] Comment on above: Performed By: #### A 1C, GFR, CMP, VIDH #### [address] [address] #### HEPAC #### [address] [address] Lymphocyte, Absolute 0.9 10 3/mcL Normal 0.9-4.3 [facility] Comment on above: Performed By: #### A 1C, GFR, CMP, VIDH #### [address] [address] #### HEPAC #### [address] [address] Lymphocytes/100 WBC (Bld) 19.1 % Low 20.0-40.0 [facility] Comment on above: Performed By: #### A 1C, GFR, CMP, VIDH #### [address] [address] #### HEPAC #### [address] [address] Monocyte, Absolute 0.4 10 3/mcL Normal 0.1-1.4 [facility] Comment on above: Performed By: #### A 1C, GFR, CMP, VIDH #### [address] [address] #### HEPAC #### [address] [address] Monocytes/100 WBC (Bld) 7.5 % Normal 2.0-13.0 [facility] Comment on above: Performed By: #### A 1C, GFR, CMP, VIDH #### [address] [address] #### HEPAC #### [address] [address] Neutrophils/100 WBC (Bld) 69.6 % Normal 50.0-75.0 [facility] Comment on above: Performed By: #### A 1C, GFR, CMP, VIDH #### [address] [address] #### HEPAC #### [address] [address] .GFRon 08-13-2024 Estimated Glomerular Filtration Rate 67 ml/min/1.73sqm Normal [facility] Comment on above: Result Comment: Stages of Chronic Kidney Disease (CKD) Stage Description eGFR(ml/min/1.73 sq.m.) CKD 1 Normal kidney function or >=90 normal kindney function with possible kidney damage (ex. Proteinuria) CKD 2 Kidney damage with mild loss 60-89 of kidney function CKD 3a Mild to moderate loss of kidney 45-59 function CKD 3b Moderate to severe loss of 30-44 of kindey function CKD 4 Severe loss of kidney function 15-29 CKD 5 Kidney failure <15 Note: (go live 2024) the eGFR calculation was updated to the 2020 CKD-EPI creatinine equation without a race factor to calculate the eGFR results. Performed By: #### A 1C, GFR, CMP, VIDH #### [address] [address] #### HEPAC #### [address] [address] .NEUABSon 08-13-2024 Neutrophil, Absolute 3.4 10 3/mcL Normal 2.3-8.1 [facility] Comment on above: Performed By: #### A 1C, GFR, CMP, VIDH #### [address] [address] #### HEPAC #### [address] [address] A1Con 08-13-2024 Glucose [Mass/Vol] 128 mg/dL Normal [facility] Comment on above: Result Comment: Soha mated Average Glucose calculated by equation ((28.7xA1C)-46.7) Estimated average glucose (eAG) is a calculated value from Hemoglobin A1C and is software sales representative of the average blood glucose level in the last 2-3 month period. Normal range: less than 114 mg/dL Performed By: #### A 1C, GFR, CMP, VIDH #### [place] [address] #### HEPAC #### [place] [address] HbA1c (Bld) [Mass fraction] 6.1 % Normal 4.3-6.4 [facility] Comment on above: Performed By: #### A 1C, GFR, CMP, VIDH #### [place] [address] #### HEPAC #### [place] [address] CBCon 08-13-2024 Erythrocyte distribution width (RBC) [Ratio] 16.1 % High 11.5-15.5 [facility] Comment on above: Performed By: #### A 1C, GFR, CMP, VIDH #### [place] [address] #### HEPAC #### [place] [address] Hematocrit (Bld) [Volume fraction] 44.4 % Normal 34.0-46.0 [facility] Comment on above: Performed By: #### A 1C, GFR, CMP, VIDH #### [place] [address] #### HEPAC #### [place] [address] Hgb 14.6 G/dL Normal 12.0-16.0 [facility] Comment on above: Performed By: #### A 1C, GFR, CMP, VIDH #### [place] [address] #### HEPAC #### [place] [address] MCH (RBC) [Entitic mass] 29.6 pg Normal 27.0-33.0 [facility] Comment on above: Performed By: #### A 1C, GFR, CMP, VIDH #### [place] [address] #### HEPAC #### [place] [address] MCHC 32.9 G/dL Normal 32.0-36.0 [facility] Comment on above: Performed By: #### A 1C, GFR, CMP, VIDH #### [place] [address] #### HEPAC #### [place] [address] MCV (RBC) [Entitic vol] 89.7 fL Normal 80.0-99.0 [facility] Comment on above: Performed By: #### A 1C, GFR, CMP, VIDH #### [place] [address] #### HEPAC #### [place] [address] Platelet 300 10 3/mcL Normal 150-450 [facility] Comment on above: Performed By: #### A 1C, GFR, CMP, VIDH #### [place] [address] #### HEPAC #### [place] [address] Platelet mean volume (Bld) [Entitic vol] 9.8 fL Normal 6.6-10.5 [facility] Comment on above: Performed By: #### A 1C, GFR, CMP, VIDH #### [place] [address] #### HEPAC #### [place] [address] RBC 4.95 10 6/mcL Normal 4.10-5.30 [facility] Comment on above: Performed By: #### A 1C, GFR, CMP, VIDH #### [place] [address] #### HEPAC #### [place] [address] WBC 4.9 10 3/mcL Normal 4.5-10.8 [facility] Comment on above: Performed By: #### A 1C, GFR, CMP, VIDH #### [address] [address] #### HEPAC #### [address] [address] CMPon 08-13-2024 Albumin Level 3.7 G/dL Normal 3.4-4.8 [facility] Comment on above: Performed By: #### A 1C, GFR, CMP, VIDH #### [address] [address] #### HEPAC #### [address] [address] Albumin/Globulin [Mass ratio] 0.9 {ratio} Low 1.1-2.5 [facility] Comment on above: Performed By: #### A 1C, GFR, CMP, VIDH #### [address] [address] #### HEPAC #### [address] [address] ALP [Catalytic activity/Vol] 88 U/L Normal 40-135 [facility] Comment on above: Performed By: #### A 1C, GFR, CMP, VIDH #### [address] [address] #### HEPAC #### [address] [address] ALT [Catalytic activity/Vol] 98 U/L High 14-59 [facility] Comment on above: Performed By: #### A 1C, GFR, CMP, VIDH #### [address] [address] #### HEPAC #### [address] [address] AST [Catalytic activity/Vol] 64 U/L High 10-40 [facility] Comment on above: Performed By: #### A 1C, GFR, CMP, VIDH #### [place] [address] #### HEPAC #### [address] [address] Bili Total 0.5 mg/dL Normal 0.2-1.0 [facility] Comment on above: Result Comment: Use of this assay is not recommended for patients undergoing treatment with eltrombopag due to the potential for falsely elevated results. Performed By: #### A 1C, GFR, CMP, VIDH #### [place] [address] #### HEPAC #### [address] [address] BUN/Creatinine Ratio 18 ratio Normal 7-27 [facility] Comment on above: Performed By: #### A 1C, GFR, CMP, VIDH #### [place] [address] #### HEPAC #### [address] [address] Calcium [Mass/Vol] 9.4 mg/dL Normal 8.4-10.2 [facility] Comment on above: Performed By: #### A 1C, GFR, CMP, VIDH #### [place] [address] #### HEPAC #### [address] [address] Chloride [Moles/Vol] 102 mmol/L Normal 98-107 [facility] Comment on above: Performed By: #### A 1C, GFR, CMP, VIDH #### [address] [address] #### HEPAC #### [address] [address] CO2 [Moles/Vol] 30 mmol/L Normal 23-31 [facility] Comment on above: Performed By: #### A 1C, GFR, CMP, VIDH #### [place] [address] #### HEPAC #### [address] [address] Creatinine [Mass/Vol] 0.93 mg/dL Normal 0.55-1.02 [facility] Comment on above: Result Comment: Test ing performed on Siemens Dimension EXL analyzer using a modified kinetic Philip technique. Performed By: #### A 1C, GFR, CMP, VIDH #### [address] [address] #### HEPAC #### [address] [address] Electrolyte Balance 8.0 mEq/L Normal 4.0-15.0 [facility] Comment on above: Performed By: #### A 1C, GFR, CMP, VIDH #### [place] [address] #### HEPAC #### [address] [address] Globulin 4.0 G/dL High 1.5-3.8 [facility] Comment on above: Performed By: #### A 1C, GFR, CMP, VIDH #### [place] [address] #### HEPAC #### [address] [address] Glucose [Mass/Vol] 114 mg/dL Normal 80-115 [facility] Comment on above: Performed By: #### A 1C, GFR, CMP, VIDH #### [place] [address] #### HEPAC #### [address] [address] Potassium [Moles/Vol] 3.6 mmol/L Normal 3.5-5.1 [facility] Comment on above: Performed By: #### A 1C, GFR, CMP, VIDH #### [place] [address] #### HEPAC #### [address] [address] Sodium [Moles/Vol] 140 mmol/L Normal 136-145 [facility] Comment on above: Performed By: #### A 1C, GFR, CMP, VIDH #### [address] [address] #### HEPAC #### [place] [address] Total Protein 7.7 G/dL Normal 6.4-8.2 [facility] Comment on above: Performed By: #### A 1C, GFR, CMP, VIDH #### [place] [address] #### HEPAC #### [place] [address] Urea nitrogen [Mass/Vol] 17 mg/dL Normal 7-18 [facility] Comment on above: Performed By: #### A 1C, GFR, CMP, VIDH #### [place] [address] #### HEPAC #### [place] [address] LABORATORYOrdered By: SYSTEM SYSTEM on 08-13-2024 25-hydroxyvitamin D3 [Mass/Vol] 31.5 ng/mL Invalid Interpretation Code AO ADM SS Comment on above: Interpretive Data: I nterpretive Values Based on Total 25(OH) Vitamin D: Deficient <20 ng/mL Insufficient 20 - <30 ng/mL Sufficient 30-100 ng/mL Albumin BCP dye [Mass/Vol] 3.7 G/dL Normal 3.4 - 4.8 G/dL AO ADM SS Albumin/Globulin [Mass ratio] 0.9 {ratio} Low 1.1 - 2.5 ratio AO ADM SS ALP [Catalytic activity/Vol] 88 U/L Normal 40 - 135 U/L AO ADM SS ALT With P-5'-P [Catalytic activity/Vol] 98 U/L High 14 - 59 U/L AO ADM SS AST With P-5'-P [Catalytic activity/Vol] 64 U/L High 10 - 40 U/L AO ADM SS Basophils (Bld) [#/Vol] 0.0 103/mcL Normal 0.0 - 0.3 10^3/mcL AO Workflow SS Basophils/100 WBC (Bld) 0.4 % Normal 0.0 - 2.5 % AO Workflow SS Bilirubin [Mass/Vol] 0.5 mg/dL Normal 0.2 - 1 .0 mg/dL AO ADM SS Comment on above: Interpretive Data: U se of this assay is not recommended for patients undergoing treatment with eltrombopag due to the potential for falsely elevated results. Calcium [Mass/Vol] 9.4 mg/dL Normal 8.4 - 10. 2 mg/dL AO ADM SS Chloride [Moles/Vol] 102 mmol/L Normal 98 - 10 7 mmol/L AO ADM SS CO2 [Moles/Vol] 30 mmol/L Normal 23 - 31 mmol/L AO ADM SS Creatinine [Mass/Vol] 0.93 mg/dL Normal 0.55 - 1.02 mg/dL AO ADM SS Comment on above: Interpretive Data: T esting performed on Siemens Dimension EXL analyzer using a modified kinetic Philip technique. Electrolyte Balance 8.0 mEq/L Normal 4.0 - 15 .0 mEq/L AO ADM SS Eosinophil, Absolute 0.2 103/mcL Normal 0.0 - 0 .7 10^3/mcL AO Workflow SS Eosinophils/100 WBC (Bld) 3.4 % Normal 0.0 - 6.0 % AO Workflow SS Erythrocyte distribution width (RBC) [Ratio] 16.1 % High 11.5 - 15.5 % AO Workflow SS Estimated Glomerular Filtration Rate 67 ml/min/1.73sqm Invalid Interpretation Code AO Chemistry S Comment on above: Interpretive Data: Stages of Chronic Kidney Disease (CKD) Stage Description eGFR(ml/min/1.73 sq.m.) CKD 1 Normal kidney function or >=90 normal kindney function with possible kidney damage (ex. Proteinuria) CKD 2 Kidney damage with mild loss 60-89 of kidney function CKD 3a Mild to moderate loss of kidney 45-59 function CKD 3b Moderate to severe loss of 30-44 of kindey function CKD 4 Severe loss of kidney function 15-29 CKD 5 Kidney failure <15 Note: (go live 2024) the eGFR calculation was updated to the 2020 CKD-EPI creatinine equation without a race factor to calculate the eGFR results. Globulin 4.0 G/dL High 1.5 - 3.8 G/dL AO ADM SS Glucose [Mass/Vol] 128 mg/dL Invalid Interpretation Code AO Chemistry S Comment on above: Interpretive Data: E stimated average glucose (eAG) is a calculated value from Hemoglobin A1C and is software sales representative of the average blood glucose level in the last 2-3 month period. Normal range: less than 114 mg/dL Glucose [Mass/Vol] 114 mg/dL Normal 80 - 115 mg/dL AO ADM SS HbA1c (Bld) [Mass fraction] 6.1 % Normal 4.3 - 6.4 % AO ADM SS Hematocrit (Bld) [Volume fraction] 44.4 % Normal 34.0 - 46.0 % AO Workflow SS Hemoglobin (Bld) [Mass/Vol] 14.6 G/dL Normal 12.0 - 16.0 G/dL AO Workflow SS Lymphocytes (Bld) [#/Vol] 0.9 103/mcL Normal 0.9 - 4.3 10^3/mcL AO Workflow SS Lymphocytes/100 WBC (Bld) 19.1 % Low 20.0 - 40.0 % AO Workflow SS MCH (RBC) [Entitic mass] 29.6 pg Normal 27.0 - 33.0 pg AO Workflow SS MCHC 32.9 G/dL Normal 32.0 - 36.0 G/dL AO Workflow SS MCV (RBC) [Entitic vol] 89.7 fL Normal 80.0 - 99.0 fL AO Workflow SS Monocytes (Bld) [#/Vol] 0.4 103/mcL Normal 0.1 - 1.4 10^3/mcL AO Workflow SS Monocytes/100 WBC (Bld) 7.5 % Normal 2.0 - 13.0 % AO Workflow SS Neutrophils (Bld) [#/Vol] 3.4 103/mcL Normal 2.3 - 8.1 10^3/mcL AO Workflow SS Neutrophils/100 WBC (Bld) 69.6 % Normal 50.0 - 75.0 % AO Workflow SS Platelet mean volume (Bld) [Entitic vol] 9.8 fL Normal 6.6 - 10.5 fL AO Workflow SS Platelets (Bld) [#/Vol] 300 103/mcL Normal 150 - 450 10^3/mcL AO Workflow SS Potassium [Moles/Vol] 3.6 mmol/L Normal 3.5 - 5.1 mmol/L AO ADM SS Protein [Mass/Vol] 7.7 G/dL Normal 6.4 - 8.2 G/dL AO ADM SS RBC (Bld) [#/Vol] 4.95 106/mcL Normal 4.10 - 5.3 0 10^6/mcL AO Workflow SS Sodium [Moles/Vol] 140 mmol/L Normal 136 - 145 mmol/L AO ADM SS Urea nitrogen [Mass/Vol] 17 mg/dL Normal 7 - 18 mg/dL AO ADM SS Urea nitrogen/Creatinine [Mass ratio] 18 ratio Normal 7 - 27 ratio AO ADM SS WBC (Bld) [#/Vol] 4.9 103/mcL Normal 4.5 - 10.8 10^3/mcL AO Workflow SS LABORATORYOrdered By: Jorge Luis Santiago on 08-13-2024 Cholesterol [Mass/Vol] 140 mg/dL Normal 0 - 200 mg/dL AO ADM SS Comment on above: Interpretive Data: C holesterol Reference Interval: Less than 200 Desirable 200-239 Borderline high risk 240 and above High risk Cholesterol in HDL [Mass/Vol] 46 mg/dL Normal 40 - 60 mg/dL AO ADM SS Cholesterol in LDL [Mass/Vol] 80 mg/dL Normal 0 - 130 mg/dL AO ADM SS Triglyceride [Mass/Vol] 70 mg/dL Normal 0 - 150 mg/dL AO ADM SS Comment on above: Interpretive Data: T riglyceride Reference Interval: Less than 150 Normal 150-199 Borderline high risk 200-499 High risk 500 or higher Very high risk LIPIDon 08-13-2024 Cholesterol [Mass/Vol] 140 mg/dL Normal 0-200 [facility] Comment on above: Result Comment: Chol esterol Reference Interval: Less than 200 Desirable 200-239 Borderline high risk 240 and above High risk Performed By: #### A 1C, GFR, CMP, VIDH #### [address] [address] #### HEPAC #### [address] [address] Cholesterol in HDL [Mass/Vol] 46 mg/dL Normal 40-60 [facility] Comment on above: Performed By: #### A 1C, GFR, CMP, VIDH #### [address] [address] #### HEPAC #### [address] [address] Cholesterol in LDL [Mass/Vol] 80 mg/dL Normal 0-130 [facility] Comment on above: Performed By: #### A 1C, GFR, CMP, VIDH #### [address] [address] #### HEPAC #### [address] [address] Triglyceride [Mass/Vol] 70 mg/dL Normal 0-150 [facility] Comment on above: Result Comment: Trig lyceride Reference Interval: Less than 150 Normal 150-199 Borderline high risk 200-499 High risk 500 or higher Very high risk Performed By: #### A 1C, GFR, CMP, VIDH #### [address] [address] #### HEPAC #### [place] [address] VIDHon 08-13-2024 Vit. D 25-Hydroxy 31.5 ng/mL Normal [facility] Comment on above: Result Comment: Inte rpretive Values Based on Total 25(OH) Vitamin D: Deficient <20 ng/mL Insufficient 20 - <30 ng/mL Sufficient 30-100 ng/mL Performed By: #### A 1C, GFR, CMP, VIDH #### [place] [address] #### HEPAC #### [place] [address] US ABDOMEN [facility] 025 US ABDOMEN LIMITED ORIGINAL EXAMINATION: LIMITED ABDOMINAL ULTRASOUND06/06/2024 9:49 am Limited ultrasound of the abdomen attention right upper quadrant COMPARISON: None TECHNIQUE: This report is based on interpretation of permanently recorded ultrasound images. HISTORY: ORDERING SYSTEM PROVIDED HISTORY: Reason for Exam: elevated liver enzymes, FINDINGS: The gallbladder is distended satisfactorily without calculi, wall thickening, pericholecystic edema or tenderness. Mild adenomyomatosis of the anterior gallbladder wall is of no clinical significance. There is no intrahepatic bile duct dilatation. The common duct is 7 mm at the goldie hepatis. This is considered normal for age. The adjacent main portal vein shows antegrade blood flow.. The visualized liver shows coarsening of echotexture and mildly increased echogenicity. No suspicious focal mass is seen. No obvious nodularity of the liver margins. The visualized pancreas shows no focal lesion or mass but some portions are obscured by bowel gas artifacts. No ascites is seen in the RIGHT upper quadrant. Limited survey images of the RIGHT kidney show normal cortical thickness and echogenicity with no pelvocaliectasis. IMPRESSION: Hepatic steatosis or other diffuse hepatocellular disease. No acute findings. Interpreted by: Linn Funez MD Preliminary Report By: Linn Funez MD Electronically signed By Linn Funez MD Dictated Date: 06/06/2024 12:38:12 PM Prelim Date: 06/06/2024 12:39:26 PM Sign Date: 06/06/2024 12:39:26 PM Ordering Provider: NAOMI FUNG [facility] .GFRon 05-14-2024 GFR 76 ml/min/1.73sqm [facility] Comment on above: Result Comment: GFR Population mean for , Non- Americans Ages 20-29 = 116 mL/min/1.73 sq.m. Ages 30-39 = 107 mL/min/1.73 sq.m. Ages 40-49 = 99 mL/min/1.73 sq.m. Ages 50-59 = 93 mL/min/1.73 sq.m. Ages 60-69 = 85 mL/min/1.73 sq.m. Ages 70+ = 75 mL/min/1.73 sq.m. Chronic Kidney Disease: Less than 60 mL/min/1.73 square meters End Stage Renal Disease: Less than 15 mL/min/1.73 square meters Performed By: #### A 1C, CMP, GFR #### [address] [address] GFR Non- 62 ml/min/1.73sqm [facility] Comment on above: Result Comment: GFR Population mean for , Non- Americans Ages 20-29 = 116 mL/min/1.73 sq.m. Ages 30-39 = 107 mL/min/1.73 sq.m. Ages 40-49 = 99 mL/min/1.73 sq.m. Ages 50-59 = 93 mL/min/1.73 sq.m. Ages 60-69 = 85 mL/min/1.73 sq.m. Ages 70+ = 75 mL/min/1.73 sq.m. Chronic Kidney Disease: Less than 60 mL/min/1.73 square meters End Stage Renal Disease: Less than 15 mL/min/1.73 square meters Performed By: #### A 1C, CMP, GFR #### [address] [address] A1Con 05-14-2024 Glucose [Mass/Vol] 140 mg/dL Normal [facility] Comment on above: Result Comment: Soha mated Average Glucose calculated by equation ((28.7xA1C)-46.7) Estimated average glucose (eAG) is a calculated value from Hemoglobin A1C and is software sales representative of the average blood glucose level in the last 2-3 month period. Normal range: less than 114 mg/dL Performed By: #### A 1C, CMP, GFR #### [address] [address] HbA1c (Bld) [Mass fraction] 6.5 % High 4.3-6.4 [facility] Comment on above: Performed By: #### A 1C, CMP, GFR #### [address] [address] CMPon 05-14-2024 Albumin Level 3.3 G/dL Low 3.4-4.8 [facility] Comment on above: Performed By: #### A 1C, CMP, GFR #### [address] [address] Albumin/Globulin [Mass ratio] 0.8 {ratio} Low 1.1-2.5 [facility] Comment on above: Performed By: #### A 1C, CMP, GFR #### [address] [address] ALP [Catalytic activity/Vol] 89 U/L Normal 40-135 [facility] Comment on above: Performed By: #### A 1C, CMP, GFR #### [address] [address] ALT [Catalytic activity/Vol] 72 U/L High 14-59 [facility] Comment on above: Performed By: #### A 1C, CMP, GFR #### [address] [address] AST [Catalytic activity/Vol] 69 U/L High 10-40 [facility] Comment on above: Performed By: #### A 1C, CMP, GFR #### [address] [address] Bili Total 0.4 mg/dL Normal 0.2-1.0 [facility] Comment on above: Result Comment: Use of this assay is not recommended for patients undergoing treatment with eltrombopag due to the potential for falsely elevated results. Performed By: #### A 1C, CMP, GFR #### [place] [address] BUN/Creatinine Ratio 16 ratio Normal 7-27 [facility] Comment on above: Performed By: #### A 1C, CMP, GFR #### [place] [address] Calcium [Mass/Vol] 9.3 mg/dL Normal 8.4-10.2 [facility] Comment on above: Performed By: #### A 1C, CMP, GFR #### [place] [address] Chloride [Moles/Vol] 106 mmol/L Normal 98-107 [facility] Comment on above: Performed By: #### A 1C, CMP, GFR #### [place] [address] CO2 [Moles/Vol] 31 mmol/L Normal 23-31 [facility] Comment on above: Performed By: #### A 1C, CMP, GFR #### [place] [address] Creatinine [Mass/Vol] 0.90 mg/dL Normal 0.55-1.02 [facility] Comment on above: Result Comment: Test ing performed on Siemens Dimension EXL analyzer using a modified kinetic Philip technique. Performed By: #### A 1C, CMP, GFR #### [place] [address] Electrolyte Balance 5.0 mEq/L Normal 4.0-15.0 [facility] Comment on above: Performed By: #### A 1C, CMP, GFR #### [address] [address] Globulin 4.0 G/dL Normal [facility] Comment on above: Performed By: #### A 1C, CMP, GFR #### [address] [address] Glucose [Mass/Vol] 134 mg/dL High 80-115 [facility] Comment on above: Performed By: #### A 1C, CMP, GFR #### [address] [address] Potassium [Moles/Vol] 4.0 mmol/L Normal 3.5-5.1 [facility] Comment on above: Performed By: #### A 1C, CMP, GFR #### [address] [address] Sodium [Moles/Vol] 142 mmol/L Normal 136-145 [facility] Comment on above: Performed By: #### A 1C, CMP, GFR #### [address] [address] Total Protein 7.3 G/dL Normal 6.4-8.2 [facility] Comment on above: Performed By: #### A 1C, CMP, GFR #### [address] [address] Urea nitrogen [Mass/Vol] 14 mg/dL Normal 7-18 [facility] Comment on above: Performed By: #### A 1C, CMP, GFR #### [address] [address] MALBRon 05-14-2024 U Creatinine 172.5 mg/dL [facility] Comment on above: Performed By: #### M ALBR #### [address] [address] U Microalb 619 mcg/dL [facility] Comment on above: Performed By: #### M ALBR #### [facility] [address] [place], [place] [address] U Ratio Alb/Cre 4 mcg/mg Normal 0-30 [facility] Comment on above: Performed By: #### M ALBR #### [facility] [address] [place], [place] [address] BD BONE DENSITY DEXA AXIAL S 12-14-2023 BD BONE DENSITY DEXA AXIAL SKELETON ORIGINAL EXAMINATION: BONE DENSITOMETRY 12/14/2023 3:14 pm TECHNIQUE: A bone density dual x-ray absorptiometry (DEXA) scan was performed of the axial (e.g. hips, spine) and/or appendicular (e.g. radius) skeleton as appropriate. COMPARISON: 11/02/2021 HISTORY: ORDERING SYSTEM PROVIDED HISTORY: Reason for Exam: Osteoporosis Screening FINDINGS: BMD (g/cm2) Lumbar Spine: 0.948. T Score Lumbar Spine: -0.9 BMD (g/cm2) Left Femoral Neck: 0.666. T Score Left Femoral Neck: -1.7 BMD (g/cm2) Left Hip: 0.821. T Score Left Hip: -1.0 BMD Change from previous Hip: -2.7% BMD Change from previous Lumbar spine: -0.4% FRAX: 10 year fracture risk assessment Major osteoporotic fracture: 8.7% Hip fracture: 1.0% IMPRESSION: Osteopenia by WHO criteria. World Health Organization criteria: (Comparing with young normal sex matched population) - Normal: T-score at or above -1 SD (standard deviation) - Osteopenia: T-score between -1 and -2.5 SD - Osteoporosis: T-score at or below -2.5 SD The NOF recommends that FDA-approved medical therapies be considered in post-menopausal women and men age >/= 50 years with a: * Hip or vertebral fracture, or * T-score of /= 20% for major osteoporotic fractures or * >/= 3% for hip fractures All treatment decisions require clinical judgement and consideration of individual patient factors, including patient preferences, comorbidities, previous drug use, risk factors not captured in the FRAX registered model (e.g., frailty, falls, vitamin D deficiency, increased bone turnover, interval significant decline in bone density) and possible under- or over-estimation of fracture risk by FRAX. I have personally reviewed the images of this examination and agree with the resident's findings and interpretation. Interpreted by: Nathaniel Johnson DO Preliminary Report By: Yvonne Charles Electronically signed By Nathaniel Johnson DO Dictated Date: 12/14/2023 3:22:49 PM Prelim Date: 12/14/2023 3:26:34 PM Sign Date: 12/14/2023 3:26:34 PM Ordering Provider: NAOMI [place] [facility] ([place]) .Auto Diffon 11-16-2023 Basophil, Absolute 0.0 10 3/mcL Normal 0.0-0.2 Counts include 234 beds at the [facility] ([place]) Comment on above: Performed By: #### A LUCRECIA, CMP, GFR, A1C, ADIFF, CBC, LIPID #### [address] [address] Basophils/100 WBC (Bld) 1.2 % Normal 0.0-2.5 [facility] ([place]) Comment on above: Performed By: #### A LUCRECIA, CMP, GFR, A1C, ADIFF, CBC, LIPID #### [address] [address] Eosinophil, Absolute 0.2 10 3/mcL Normal 0.0-0.4 [facility] ([place]) Comment on above: Performed By: #### A LUCRECIA, CMP, GFR, A1C, ADIFF, CBC, LIPID #### [address] [address] Eosinophils/100 WBC (Bld) 5.5 % Normal 0.0-7.0 [facility] ([place]) Comment on above: Performed By: #### A LUCRECIA, CMP, GFR, A1C, ADIFF, CBC, LIPID #### [address] [address] Lymphocyte, Absolute 0.9 10 3/mcL Normal 0.8-3.9 [facility] ([place]) Comment on above: Performed By: #### A LUCRECIA, CMP, GFR, A1C, ADIFF, CBC, LIPID #### [address] [address] Lymphocytes/100 WBC (Bld) 21.8 % Normal 10.0-50.0 [facility] ([place]) Comment on above: Performed By: #### A LUCRECIA, CMP, GFR, A1C, ADIFF, CBC, LIPID #### [address] [address] Monocyte, Absolute 0.4 10 3/mcL Normal 0.2-1.0 Counts include 234 beds at the [facility] ([place]) Comment on above: Performed By: #### A LUCRECIA, CMP, GFR, A1C, ADIFF, CBC, LIPID #### [address] [address] Monocytes/100 WBC (Bld) 8.7 % Normal 1.7-13.0 [facility] ([place]) Comment on above: Performed By: #### A LUCRECIA, CMP, GFR, A1C, ADIFF, CBC, LIPID #### [address] [address] Neutrophils/100 WBC (Bld) 62.8 % Normal 37.0-80.0 [facility] ([place]) Comment on above: Performed By: #### A LUCRECIA, CMP, GFR, A1C, ADIFF, CBC, LIPID #### [address] [address] .GFRon 11-16-2023 GFR 68 ml/min/1.73sqm Normal [facility] ([place]) Comment on above: Result Comment: GFR Population mean for , Non- Americans Ages 20-29 = 116 mL/min/1.73 sq.m. Ages 30-39 = 107 mL/min/1.73 sq.m. Ages 40-49 = 99 mL/min/1.73 sq.m. Ages 50-59 = 93 mL/min/1.73 sq.m. Ages 60-69 = 85 mL/min/1.73 sq.m. Ages 70+ = 75 mL/min/1.73 sq.m. Chronic Kidney Disease: Less than 60 mL/min/1.73 square meters End Stage Renal Disease: Less than 15 mL/min/1.73 square meters Performed By: #### A LUCRECIA, CMP, GFR, A1C, ADIFF, CBC, LIPID #### [address] [address] GFR Non- 56 ml/min/1.73sqm Normal [facility] ([place]) Comment on above: Result Comment: GFR Population mean for , Non- Americans Ages 20-29 = 116 mL/min/1.73 sq.m. Ages 30-39 = 107 mL/min/1.73 sq.m. Ages 40-49 = 99 mL/min/1.73 sq.m. Ages 50-59 = 93 mL/min/1.73 sq.m. Ages 60-69 = 85 mL/min/1.73 sq.m. Ages 70+ = 75 mL/min/1.73 sq.m. Chronic Kidney Disease: Less than 60 mL/min/1.73 square meters End Stage Renal Disease: Less than 15 mL/min/1.73 square meters Performed By: #### A LUCRECIA, CMP, GFR, A1C, ADIFF, CBC, LIPID #### [address] [address] .NEUABSon 11-16-2023 Neutrophil, Absolute 2.6 10 3/mcL Low 2.9-6.2 [facility] ([place]) Comment on above: Performed By: #### A LUCRECIA, CMP, GFR, A1C, ADIFF, CBC, LIPID #### [address] [address] A1Con 11-16-2023 Glucose [Mass/Vol] 131 mg/dL Normal [facility] ([place]) Comment on above: Result Comment: Soha mated Average Glucose calculated by equation ((28.7xA1C)-46.7) Performed By: #### A LUCRECIA, CMP, GFR, A1C, ADIFF, CBC, LIPID #### [address] [address] HbA1c (Bld) [Mass fraction] 6.2 % Normal 4.3-6.4 [facility] ([place]) Comment on above: Performed By: #### A LUCRECIA, CMP, GFR, A1C, ADIFF, CBC, LIPID #### [address] [address] CBCon 11-16-2023 Erythrocyte distribution width (RBC) [Ratio] 16.2 % High 11.5-14.5 [facility] ([place]) Comment on above: Performed By: #### A LUCRECIA, CMP, GFR, A1C, ADIFF, CBC, LIPID #### [address] [address] Hematocrit (Bld) [Volume fraction] 43.1 % Normal 37.0-47.0 [facility] ([place]) Comment on above: Performed By: #### A LUCRECIA, CMP, GFR, A1C, ADIFF, CBC, LIPID #### [address] [address] Hgb 14.2 G/dL Normal 12.0-16.0 [facility] ([place]) Comment on above: Performed By: #### A LUCRECIA, CMP, GFR, A1C, ADIFF, CBC, LIPID #### [address] [address] MCH (RBC) [Entitic mass] 29.1 pg Normal 27.0-31.2 [facility] ([place]) Comment on above: Performed By: #### A LUCRECIA, CMP, GFR, A1C, ADIFF, CBC, LIPID #### [address] [address] MCHC 32.8 G/dL Low 33.0-37.0 [facility] ([place]) Comment on above: Performed By: #### A LUCRECIA, CMP, GFR, A1C, ADIFF, CBC, LIPID #### [address] [address] MCV (RBC) [Entitic vol] 88.6 fL Normal 80.0-94.0 [facility] ([place]) Comment on above: Performed By: #### A LUCRECIA, CMP, GFR, A1C, ADIFF, CBC, LIPID #### [address] [address] Platelet 271 10 3/mcL Normal 130-400 [facility] ([place]) Comment on above: Performed By: #### A LUCRECIA, CMP, GFR, A1C, ADIFF, CBC, LIPID #### [address] [address] Platelet mean volume (Bld) [Entitic vol] 10.6 fL High 7.4-10.4 [facility] ([place]) Comment on above: Performed By: #### A LUCRECIA, CMP, GFR, A1C, ADIFF, CBC, LIPID #### [address] [address] RBC 4.86 10 6/mcL Normal 4.20-5.40 [facility] ([place]) Comment on above: Performed By: #### A LUCRECIA, CMP, GFR, A1C, ADIFF, CBC, LIPID #### [address] [address] WBC 4.2 10 3/mcL Low 4.6-10.8 [facility] ([place] Comment on above: Performed By: #### A LUCRECIA, CMP, GFR, A1C, ADIFF, CBC, LIPID #### [address] [address] CMPon 11-16-2023 Albumin Level 3.6 G/dL Normal 3.4-4.8 [facility] ([place] Comment on above: Performed By: #### A LUCRECIA, CMP, GFR, A1C, ADIFF, CBC, LIPID #### [address] [address] Albumin/Globulin [Mass ratio] 1.1 {ratio} Normal 1.1-2.5 [facility] ([place]) Comment on above: Performed By: #### A LUCRECIA, CMP, GFR, A1C, ADIFF, CBC, LIPID #### [address] [address] ALP [Catalytic activity/Vol] 93 U/L Normal 40-135 [facility] ([place]) Comment on above: Performed By: #### A LUCRECIA, CMP, GFR, A1C, ADIFF, CBC, LIPID #### [address] [address] ALT [Catalytic activity/Vol] 55 U/L Normal 14-59 [facility] ([place]) Comment on above: Performed By: #### A LUCRECIA, CMP, GFR, A1C, ADIFF, CBC, LIPID #### [address] [address] AST [Catalytic activity/Vol] 43 U/L High 10-40 [facility] ([place] Comment on above: Performed By: #### A LUCRECIA, CMP, GFR, A1C, ADIFF, CBC, LIPID #### [address] [address] Bili Total 0.4 mg/dL Normal 0.2-1.0 [facility] ([place]) Comment on above: Result Comment: Use of this assay is not recommended for patients undergoing treatment with eltrombopag due to the potential for falsely elevated results. Performed By: #### A LUCRECIA, CMP, GFR, A1C, ADIFF, CBC, LIPID #### [address] [address] BUN/Creatinine Ratio 13 ratio Normal 7-27 Counts include 234 beds at the [facility] ([place]) Comment on above: Performed By: #### A LUCRECIA, CMP, GFR, A1C, ADIFF, CBC, LIPID #### [address] [address] Calcium [Mass/Vol] 9.1 mg/dL Normal 8.4-10.2 [facility] ([place]) Comment on above: Performed By: #### A LUCRECIA, CMP, GFR, A1C, ADIFF, CBC, LIPID #### [address] [address] Chloride [Moles/Vol] 106 mmol/L Normal 98-107 Counts include 234 beds at the [facility] ([place]) Comment on above: Performed By: #### A LUCRECIA, CMP, GFR, A1C, ADIFF, CBC, LIPID #### [address] [address] CO2 [Moles/Vol] 32 mmol/L High 23-31 [facility] ([place]) Comment on above: Performed By: #### A LUCRECIA, CMP, GFR, A1C, ADIFF, CBC, LIPID #### [address] [address] Creatinine [Mass/Vol] 0.99 mg/dL Normal 0.55-1.02 [facility] ([place]) Comment on above: Performed By: #### A LUCRECIA, CMP, GFR, A1C, ADIFF, CBC, LIPID #### [address] [address] Electrolyte Balance 7.0 mEq/L Normal 4.0-15.0 [facility] ([place]) Comment on above: Performed By: #### A LUCRECIA, CMP, GFR, A1C, ADIFF, CBC, LIPID #### [address] [address] Globulin 3.3 G/dL Normal [facility] ([place] Comment on above: Performed By: #### A LUCRECIA, CMP, GFR, A1C, ADIFF, CBC, LIPID #### [address] [address] Glucose [Mass/Vol] 123 mg/dL High 80-115 [facility] ([place]) Comment on above: Performed By: #### A LUCRECIA, CMP, GFR, A1C, ADIFF, CBC, LIPID #### [address] [address] Potassium [Moles/Vol] 3.8 mmol/L Normal 3.5-5.1 [facility] ([place] Comment on above: Performed By: #### A LUCRECIA, CMP, GFR, A1C, ADIFF, CBC, LIPID #### [address] [address] Sodium [Moles/Vol] 145 mmol/L Normal 136-145 [facility] ([place]) Comment on above: Performed By: #### A LUCRECIA, CMP, GFR, A1C, ADIFF, CBC, LIPID #### [address] [address] Total Protein 6.9 G/dL Normal 6.4-8.2 [facility] ([place]) Comment on above: Performed By: #### A LUCRECIA, CMP, GFR, A1C, ADIFF, CBC, LIPID #### [address] [address] Urea nitrogen [Mass/Vol] 13 mg/dL Normal 7-18 [facility] ([place]) Comment on above: Performed By: #### A LUCRECIA, CMP, GFR, A1C, ADIFF, CBC, LIPID #### [place] [address] [place], [place] [address] LABORATORYOrdered By: SYSTEM SYSTEM on 11-16-2023 Albumin BCP dye [Mass/Vol] 3.6 G/dL Normal 3.4 - 4.8 G/dL AO ADM SS Albumin/Globulin [Mass ratio] 1.1 {ratio} Normal 1.1 - 2.5 ratio AO ADM SS ALP [Catalytic activity/Vol] 93 U/L Normal 40 - 135 U/L AO ADM SS ALT With P-5'-P [Catalytic activity/Vol] 55 U/L Normal 14 - 59 U/L AO ADM SS AST With P-5'-P [Catalytic activity/Vol] 43 U/L High 10 - 40 U/L AO ADM SS Basophil, Absolute 0.0 103/mcL Normal 0.0 - 0.2 10^3/mcL AO Workflow SS Basophils/100 WBC (Bld) 1.2 % Normal 0.0 - 2.5 % AO Workflow SS Bilirubin [Mass/Vol] 0.4 mg/dL Normal 0.2 - 1 .0 mg/dL AO ADM SS Comment on above: Interpretive Data: U se of this assay is not recommended for patients undergoing treatment with eltrombopag due to the potential for falsely elevated results. Calcium [Mass/Vol] 9.1 mg/dL Normal 8.4 - 10. 2 mg/dL AO ADM SS Chloride [Moles/Vol] 106 mmol/L Normal 98 - 10 7 mmol/L AO ADM SS CO2 [Moles/Vol] 32 mmol/L High 23 - 31 mmol/L AO ADM SS Creatinine [Mass/Vol] 0.99 mg/dL Normal 0.55 - 1.02 mg/dL AO ADM SS Electrolyte Balance 7.0 mEq/L Normal 4.0 - 15 .0 mEq/L AO ADM SS Eosinophil, Absolute 0.2 103/mcL Normal 0.0 - 0 .4 10^3/mcL AO Workflow SS Eosinophils/100 WBC (Bld) 5.5 % Normal 0.0 - 7.0 % AO Workflow SS Erythrocyte distribution width (RBC) [Ratio] 16.2 % High 11.5 - 14.5 % AO Workflow SS GFR/1.73 sq M.predicted among blacks MDRD (S/P/Bld) [Vol rate/Area] 68 ml/min/1.73sqm Invalid Interpretation Code AO Chemistry S Comment on above: Interpretive Data: GFR Population mean for , Non- Americans Ages 20-29 = 116 mL/min/1.73 sq.m. Ages 30-39 = 107 mL/min/1.73 sq.m. Ages 40-49 = 99 mL/min/1.73 sq.m. Ages 50-59 = 93 mL/min/1.73 sq.m. Ages 60-69 = 85 mL/min/1.73 sq.m. Ages 70+ = 75 mL/min/1.73 sq.m. Chronic Kidney Disease: Less than 60 mL/min/1.73 square meters End Stage Renal Disease: Less than 15 mL/min/1.73 square meters GFR/1.73 sq M.predicted among non-blacks MDRD (S/P/Bld) [Vol rate/Area] 56 ml/min/1.73sqm Invalid Interpretation Code AO Chemistry S Comment on above: Interpretive Data: GFR Population mean for , Non- Americans Ages 20-29 = 116 mL/min/1.73 sq.m. Ages 30-39 = 107 mL/min/1.73 sq.m. Ages 40-49 = 99 mL/min/1.73 sq.m. Ages 50-59 = 93 mL/min/1.73 sq.m. Ages 60-69 = 85 mL/min/1.73 sq.m. Ages 70+ = 75 mL/min/1.73 sq.m. Chronic Kidney Disease: Less than 60 mL/min/1.73 square meters End Stage Renal Disease: Less than 15 mL/min/1.73 square meters Globulin 3.3 G/dL Invalid Interpretation Code AO ADM SS Glucose [Mass/Vol] 131 mg/dL Invalid Interpretation Code AO Chemistry S Glucose [Mass/Vol] 123 mg/dL High 80 - 115 mg/dL AO ADM SS HbA1c (Bld) [Mass fraction] 6.2 % Normal 4.3 - 6.4 % AO ADM SS Hematocrit (Bld) [Volume fraction] 43.1 % Normal 37.0 - 47.0 % AO Workflow SS Hemoglobin (Bld) [Mass/Vol] 14.2 G/dL Normal 12.0 - 16.0 G/dL AO Workflow SS Lymphocyte, Absolute 0.9 103/mcL Normal 0.8 - 3 .9 10^3/mcL AO Workflow SS Lymphocytes/100 WBC (Bld) 21.8 % Normal 10.0 - 50.0 % AO Workflow SS MCH (RBC) [Entitic mass] 29.1 pg Normal 27.0 - 31.2 pg AO Workflow SS MCHC 32.8 G/dL Low 33.0 - 37.0 G/dL AO Workflow SS MCV (RBC) [Entitic vol] 88.6 fL Normal 80.0 - 94.0 fL AO Workflow SS Monocyte, Absolute 0.4 103/mcL Normal 0.2 - 1.0 10^3/mcL AO Workflow SS Monocytes/100 WBC (Bld) 8.7 % Normal 1.7 - 13.0 % AO Workflow SS Neutrophil, Absolute 2.6 103/mcL Low 2.9 - 6 .2 10^3/mcL AO Workflow SS Neutrophils/100 WBC (Bld) 62.8 % Normal 37.0 - 80.0 % AO Workflow SS Platelet mean volume (Bld) [Entitic vol] 10.6 fL High 7.4 - 10.4 fL AO Workflow SS Platelets (Bld) [#/Vol] 271 103/mcL Normal 130 - 400 10^3/mcL AO Workflow SS Potassium [Moles/Vol] 3.8 mmol/L Normal 3.5 - 5.1 mmol/L AO ADM SS Protein [Mass/Vol] 6.9 G/dL Normal 6.4 - 8.2 G/dL AO ADM SS RBC (Bld) [#/Vol] 4.86 106/mcL Normal 4.20 - 5.4 0 10^6/mcL AO Workflow SS Sodium [Moles/Vol] 145 mmol/L Normal 136 - 145 mmol/L AO ADM SS Urea nitrogen [Mass/Vol] 13 mg/dL Normal 7 - 18 mg/dL AO ADM SS Urea nitrogen/Creatinine [Mass ratio] 13 ratio Normal 7 - 27 ratio AO ADM SS WBC (Bld) [#/Vol] 4.2 103/mcL Low 4.6 - 10.8 10^3/mcL AO Workflow SS LABORATORYOrdered By: Linsey Vera on 11-16-2023 Cholesterol [Mass/Vol] 135 mg/dL Normal 0 - 200 mg/dL AO ADM SS Comment on above: Interpretive Data: C holesterol Reference Interval: Less than 200 Desirable 200-239 Borderline high risk 240 and above High risk Cholesterol in HDL [Mass/Vol] 43 mg/dL Normal 40 - 60 mg/dL AO ADM SS Cholesterol in LDL [Mass/Vol] 78 mg/dL Normal 0 - 130 mg/dL AO ADM SS Triglyceride [Mass/Vol] 68 mg/dL Normal 0 - 150 mg/dL AO ADM SS Comment on above: Interpretive Data: T riglyceride Reference Interval: Less than 150 Normal 150-199 Borderline high risk 200-499 High risk 500 or higher Very high risk LIPIDon 11-16-2023 Cholesterol [Mass/Vol] 135 mg/dL Normal 0-200 [facility] ([place]) Comment on above: Result Comment: Chol esterol Reference Interval: Less than 200 Desirable 200-239 Borderline high risk 240 and above High risk Performed By: #### A LUCRECIA, CMP, GFR, A1C, ADIFF, CBC, LIPID #### [address] [address] Cholesterol in HDL [Mass/Vol] 43 mg/dL Normal 40-60 [facility] ([place]) Comment on above: Performed By: #### A LUCRECIA, CMP, GFR, A1C, ADIFF, CBC, LIPID #### [address] [address] Cholesterol in LDL [Mass/Vol] 78 mg/dL Normal 0-130 [facility] ([place]) Comment on above: Performed By: #### A LUCRECIA, CMP, GFR, A1C, ADIFF, CBC, LIPID #### [address] [address] Triglyceride [Mass/Vol] 68 mg/dL Normal 0-150 [facility] ([place]) Comment on above: Result Comment: Trig lyceride Reference Interval: Less than 150 Normal 150-199 Borderline high risk 200-499 High risk 500 or higher Very high risk Performed By: #### A LUCRECIA, CMP, GFR, A1C, ADIFF, CBC, LIPID #### [address] [address] [place] MAMMOGRAM SCREENING VIRIDIANA Li/Isabelle 11-07-2023 [place] MAMMOGRAM SCREENING BILATERAL W/[place] ORIGINAL FROM: THIAGO GIMENEZ [address] [place], [place] [address] PROCEDURE FOR: TAM MOYA [address] [facility] [address] [place] [address] Home: PID#: [id number] Exam#: [id number] : 1955 Age: 68 TO: NAOMI FUNG DIECAST MACHINE OPERATOR [address] [place], [place] [address] Fax: NO FAX EXAMINATION: SCREENING DIGITAL BILATERAL MAMMOGRAM WITH TOMOSYNTHESIS, 11/07/2023 7:28 am TECHNIQUE: Screening mammography of the bilateral breasts was performed with tomosynthesis. 2D standard and 3D tomosynthesis combination imaging performed through both breasts in the MLO and CC projection. Computer aided detection was utilized in the interpretation of this exam. Patient experienced difficulty with positioning. Best possible images were obtained. COMPARISON: November 03, 2022, November 02, 2021, July 04, 2020 HISTORY: Breast cancer screening. FINDINGS: BREAST DENSITY: There are scattered areas of fibroglandular density. There are bilateral benign-type calcifications. There is a stable benign-type left breast mass, possibly an intramammary lymph node. There is no significant mass, architectural distortion or microcalcification. Fibroglandular pattern is stable. IMPRESSION: No mammographic evidence of malignancy. Continued screening with annual mammograms is recommended. Liang Riverazick risk calculations, generated with the history provided, report this patient's 10 year risk and lifetime risk for developing breast cancer at 2.4% and 4.7%, respectively. Based on this assessment tool, if the patient's calculated lifetime risk is below 20%, then the patient is considered at average risk for developing breast cancer. If the patient's calculated lifetime risk is at or above 20%, then the patient is considered high risk for developing breast cancer and may be a candidate for supplemental breast MRI screening in addition to annual mammographic screening per the [place] [employer]. BIRADS: MAMMOGRAM BI-RADS: 2: Benign finding RECALL: 1 year screening RECALL TYPE: mammo LETTER SENT: Normal BI-RADS 1 and 2 Interpreted by: Jessenia Driver Preliminary Report By: Jessenia Driver Electronically signed By Jessenia Driver Dictated Date: 11/07/2023 8:18:30 AM Prelim Date: 11/07/2023 8:27:04 AM Sign Date: 11/07/2023 8:27:04 AM Ordering Provider: NAOMI FUNG Supervisor Gear Repair: SANDRA BURNHAM RT(R)(M)(CT) letter sent: Normal BI-RADS 1 and 2 Mammogram BI-RADS: 2 Benign Normal [facility] ([place] .GFRon 08-24-2023 GFR 79 ml/min/1.73sqm Normal [facility] ([place]) Comment on above: Result Comment: GFR Population mean for , Non- Americans Ages 20-29 = 116 mL/min/1.73 sq.m. Ages 30-39 = 107 mL/min/1.73 sq.m. Ages 40-49 = 99 mL/min/1.73 sq.m. Ages 50-59 = 93 mL/min/1.73 sq.m. Ages 60-69 = 85 mL/min/1.73 sq.m. Ages 70+ = 75 mL/min/1.73 sq.m. Chronic Kidney Disease: Less than 60 mL/min/1.73 square meters End Stage Renal Disease: Less than 15 mL/min/1.73 square meters Performed By: #### A LUCRECIA, CMP, GFR, A1C, ADIFF, CBC, LIPID #### Thiago [address] [address] GFR Non- 65 ml/min/1.73sqm Normal [facility] ([place]) Comment on above: Result Comment: GFR Population mean for , Non- Americans Ages 20-29 = 116 mL/min/1.73 sq.m. Ages 30-39 = 107 mL/min/1.73 sq.m. Ages 40-49 = 99 mL/min/1.73 sq.m. Ages 50-59 = 93 mL/min/1.73 sq.m. Ages 60-69 = 85 mL/min/1.73 sq.m. Ages 70+ = 75 mL/min/1.73 sq.m. Chronic Kidney Disease: Less than 60 mL/min/1.73 square meters End Stage Renal Disease: Less than 15 mL/min/1.73 square meters Performed By: #### A LUCRECIA, CMP, GFR, A1C, ADIFF, CBC, LIPID #### [address] [address] A1Con 08-24-2023 HbA1c (Bld) [Mass fraction] 6.1 % Normal 4.3-6.4 [facility] ([place]) Comment on above: Performed By: #### A LUCRECIA, CMP, GFR, A1C, ADIFF, CBC, LIPID #### [address] [address] CMPon 08-24-2023 Albumin Level 3.7 G/dL Normal 3.4-4.8 [facility] ([place]) Comment on above: Performed By: #### A LUCRECIA, CMP, GFR, A1C, ADIFF, CBC, LIPID #### [address] [address] Albumin/Globulin [Mass ratio] 1.2 {ratio} Normal 1.1-2.5 [facility] ([place]) Comment on above: Performed By: #### A LUCRECIA, CMP, GFR, A1C, ADIFF, CBC, LIPID #### [address] [address] ALP [Catalytic activity/Vol] 92 U/L Normal 40-135 [facility] ([place]) Comment on above: Performed By: #### A LUCRECIA, CMP, GFR, A1C, ADIFF, CBC, LIPID #### [address] [address] ALT [Catalytic activity/Vol] 52 U/L Normal 14-59 [facility] ([place]) Comment on above: Performed By: #### A LUCRECIA, CMP, GFR, A1C, ADIFF, CBC, LIPID #### [address] [address] AST [Catalytic activity/Vol] 41 U/L High 10-40 [facility] ([place]) Comment on above: Performed By: #### A LUCRECIA, CMP, GFR, A1C, ADIFF, CBC, LIPID #### [address] [address] Bili Total 0.5 mg/dL Normal 0.2-1.0 [facility] ([place]) Comment on above: Result Comment: Use of this assay is not recommended for patients undergoing treatment with eltrombopag due to the potential for falsely elevated results. Performed By: #### A LUCRECIA, CMP, GFR, A1C, ADIFF, CBC, LIPID #### [address] [address] BUN/Creatinine Ratio 20 ratio Normal 7-27 Counts include 234 beds at the [facility] ([place]) Comment on above: Performed By: #### A LUCRECIA, CMP, GFR, A1C, ADIFF, CBC, LIPID #### [address] [address] Calcium [Mass/Vol] 9.1 mg/dL Normal 8.4-10.2 [facility] ([place]) Comment on above: Performed By: #### A LUCRECIA, CMP, GFR, A1C, ADIFF, CBC, LIPID #### [address] [address] Chloride [Moles/Vol] 105 mmol/L Normal 98-107 Counts include 234 beds at the [facility] ([place]) Comment on above: Performed By: #### A LUCRECIA, CMP, GFR, A1C, ADIFF, CBC, LIPID #### [address] [address] CO2 [Moles/Vol] 30 mmol/L Normal 23-31 [facility] ([place]) Comment on above: Performed By: #### A LUCRECIA, CMP, GFR, A1C, ADIFF, CBC, LIPID #### [address] [address] Creatinine [Mass/Vol] 0.87 mg/dL Normal 0.55-1.02 [facility] ([place]) Comment on above: Performed By: #### A LUCRECIA, CMP, GFR, A1C, ADIFF, CBC, LIPID #### [address] [address] Electrolyte Balance 8.0 mEq/L Normal 4.0-15.0 [facility] ([place]) Comment on above: Performed By: #### A LUCRECIA, CMP, GFR, A1C, ADIFF, CBC, LIPID #### [address] [address] Globulin 3.2 G/dL Normal [facility] ([place] Comment on above: Performed By: #### A LUCRECIA, CMP, GFR, A1C, ADIFF, CBC, LIPID #### [address] [address] Glucose [Mass/Vol] 116 mg/dL High 80-115 [facility] ([place]) Comment on above: Performed By: #### A LUCRECIA, CMP, GFR, A1C, ADIFF, CBC, LIPID #### [address] [address] Potassium [Moles/Vol] 4.0 mmol/L Normal 3.5-5.1 [facility]) Comment on above: Performed By: #### A LUCRECIA, CMP, GFR, A1C, ADIFF, CBC, LIPID #### [address] [address] Sodium [Moles/Vol] 143 mmol/L Normal 136-145 [facility] ([place]) Comment on above: Performed By: #### A LUCRECIA, CMP, GFR, A1C, ADIFF, CBC, LIPID #### [address] [address] Total Protein 6.9 G/dL Normal 6.4-8.2 [facility] ([place] Comment on above: Performed By: #### A LUCRECIA, CMP, GFR, A1C, ADIFF, CBC, LIPID #### [address] [address] Urea nitrogen [Mass/Vol] 17 mg/dL Normal 7-18 [facility] ([place] Comment on above: Performed By: #### A LUCRECIA, CMP, GFR, A1C, ADIFF, CBC, LIPID #### [address] [address] LABORATORYOrdered By: SYSTEM SYSTEM on 08-24-2023 Albumin BCP dye [Mass/Vol] 3.7 G/dL Normal 3.4 - 4.8 G/dL AO ADM SS Albumin/Globulin [Mass ratio] 1.2 {ratio} Normal 1.1 - 2.5 ratio AO ADM SS ALP [Catalytic activity/Vol] 92 U/L Normal 40 - 135 U/L AO ADM SS ALT With P-5'-P [Catalytic activity/Vol] 52 U/L Normal 14 - 59 U/L AO ADM SS AST With P-5'-P [Catalytic activity/Vol] 41 U/L High 10 - 40 U/L AO ADM SS Bilirubin [Mass/Vol] 0.5 mg/dL Normal 0.2 - 1 .0 mg/dL AO ADM SS Comment on above: Interpretive Data: U se of this assay is not recommended for patients undergoing treatment with eltrombopag due to the potential for falsely elevated results. Calcium [Mass/Vol] 9.1 mg/dL Normal 8.4 - 10. 2 mg/dL AO ADM SS Chloride [Moles/Vol] 105 mmol/L Normal 98 - 10 7 mmol/L AO ADM SS CO2 [Moles/Vol] 30 mmol/L Normal 23 - 31 mmol/L AO ADM SS Creatinine [Mass/Vol] 0.87 mg/dL Normal 0.55 - 1.02 mg/dL AO ADM SS Electrolyte Balance 8.0 mEq/L Normal 4.0 - 15 .0 mEq/L AO ADM SS GFR/1.73 sq M.predicted among blacks MDRD (S/P/Bld) [Vol rate/Area] 79 ml/min/1.73sqm Invalid Interpretation Code AO Chemistry S Comment on above: Interpretive Data: GFR Population mean for , Non- Americans Ages 20-29 = 116 mL/min/1.73 sq.m. Ages 30-39 = 107 mL/min/1.73 sq.m. Ages 40-49 = 99 mL/min/1.73 sq.m. Ages 50-59 = 93 mL/min/1.73 sq.m. Ages 60-69 = 85 mL/min/1.73 sq.m. Ages 70+ = 75 mL/min/1.73 sq.m. Chronic Kidney Disease: Less than 60 mL/min/1.73 square meters End Stage Renal Disease: Less than 15 mL/min/1.73 square meters GFR/1.73 sq M.predicted among non-blacks MDRD (S/P/Bld) [Vol rate/Area] 65 ml/min/1.73sqm Invalid Interpretation Code AO Chemistry S Comment on above: Interpretive Data: GFR Population mean for , Non- Americans Ages 20-29 = 116 mL/min/1.73 sq.m. Ages 30-39 = 107 mL/min/1.73 sq.m. Ages 40-49 = 99 mL/min/1.73 sq.m. Ages 50-59 = 93 mL/min/1.73 sq.m. Ages 60-69 = 85 mL/min/1.73 sq.m. Ages 70+ = 75 mL/min/1.73 sq.m. Chronic Kidney Disease: Less than 60 mL/min/1.73 square meters End Stage Renal Disease: Less than 15 mL/min/1.73 square meters Globulin 3.2 G/dL Invalid Interpretation Code AO ADM SS Glucose [Mass/Vol] 116 mg/dL High 80 - 115 mg/dL AO ADM SS HbA1c (Bld) [Mass fraction] 6.1 % Normal 4.3 - 6.4 % AO ADM SS Potassium [Moles/Vol] 4.0 mmol/L Normal 3.5 - 5.1 mmol/L AO ADM SS Protein [Mass/Vol] 6.9 G/dL Normal 6.4 - 8.2 G/dL AO ADM SS Sodium [Moles/Vol] 143 mmol/L Normal 136 - 145 mmol/L AO ADM SS Urea nitrogen [Mass/Vol] 17 mg/dL Normal 7 - 18 mg/dL AO ADM SS Urea nitrogen/Creatinine [Mass ratio] 20 ratio Normal 7 - 27 ratio AO ADM SS LABORATORYOrdered By: Linsey Vera on 06-01-2023 Albumin DL <= 20 mg/L (U) [Mass/Vol] 997 mcg/dL Invalid Interpretation Code AO ADM SS Albumin/Creatinine DL <= 20 mg/L (U) [Mass ratio] 5 mcg/mg Normal 0 - 30 mcg/mg AO ADM SS Creatinine (U) [Mass/Vol] 189.5 mg/dL High 28.0 - 117.0 mg/dL AO ADM SS MALBRon 06-01-2023 U Creatinine 189.5 mg/dL High 28.0-117.0 [facility] ([place]) Comment on above: Performed By: #### A LUCRECIA, CMP, GFR, A1C, ADIFF, CBC, LIPID #### [address] [address] U Microalb 997 mcg/dL Normal [facility] ([place]) Comment on above: Performed By: #### A LUCRECIA, CMP, GFR, A1C, ADIFF, CBC, LIPID #### [address] [address] U Ratio Alb/Cre 5 mcg/mg Normal 0-30 [facility] ([place]) Comment on above: Performed By: #### A LUCRECIA, CMP, GFR, A1C, ADIFF, CBC, LIPID #### [address] [address] .GFRon 05-23-2023 GFR 85 ml/min/1.73sqm Normal [facility] ([place]) Comment on above: Result Comment: GFR Population mean for , Non- Americans Ages 20-29 = 116 mL/min/1.73 sq.m. Ages 30-39 = 107 mL/min/1.73 sq.m. Ages 40-49 = 99 mL/min/1.73 sq.m. Ages 50-59 = 93 mL/min/1.73 sq.m. Ages 60-69 = 85 mL/min/1.73 sq.m. Ages 70+ = 75 mL/min/1.73 sq.m. Chronic Kidney Disease: Less than 60 mL/min/1.73 square meters End Stage Renal Disease: Less than 15 mL/min/1.73 square meters Performed By: #### A LUCRECIA, CMP, GFR, A1C, ADIFF, CBC, LIPID #### [address] [address] GFR Non- 70 ml/min/1.73sqm Normal [facility] ([place]) Comment on above: Result Comment: GFR Population mean for , Non- Americans Ages 20-29 = 116 mL/min/1.73 sq.m. Ages 30-39 = 107 mL/min/1.73 sq.m. Ages 40-49 = 99 mL/min/1.73 sq.m. Ages 50-59 = 93 mL/min/1.73 sq.m. Ages 60-69 = 85 mL/min/1.73 sq.m. Ages 70+ = 75 mL/min/1.73 sq.m. Chronic Kidney Disease: Less than 60 mL/min/1.73 square meters End Stage Renal Disease: Less than 15 mL/min/1.73 square meters Performed By: #### A LUCRECIA, CMP, GFR, A1C, ADIFF, CBC, LIPID #### [address] [address] A1Con 05-23-2023 HbA1c (Bld) [Mass fraction] 5.9 % Normal 4.3-6.4 [facility] ([place]) Comment on above: Performed By: #### A LUCRECIA, CMP, GFR, A1C, ADIFF, CBC, LIPID #### [address] [address] CMPon 05-23-2023 Albumin Level 3.3 G/dL Low 3.4-4.8 [facility] ([place]) Comment on above: Performed By: #### A LUCRECIA, CMP, GFR, A1C, ADIFF, CBC, LIPID #### [address] [address] Albumin/Globulin [Mass ratio] 0.8 {ratio} Low 1.1-2.5 [facility] ([place]) Comment on above: Performed By: #### A LUCRECIA, CMP, GFR, A1C, ADIFF, CBC, LIPID #### [address] [address] ALP [Catalytic activity/Vol] 99 U/L Normal 40-135 [facility] ([place]) Comment on above: Performed By: #### A LUCRECIA, CMP, GFR, A1C, ADIFF, CBC, LIPID #### [address] [address] ALT [Catalytic activity/Vol] 35 U/L Normal 14-59 [facility] ([place]) Comment on above: Performed By: #### A LUCRECIA, CMP, GFR, A1C, ADIFF, CBC, LIPID #### [address] [place] [address] AST [Catalytic activity/Vol] 21 U/L Normal 10-40 [facility] ([place]) Comment on above: Performed By: #### A LUCRECIA, CMP, GFR, A1C, ADIFF, CBC, LIPID #### [address] [address] Bili Total 0.3 mg/dL Normal 0.2-1.0 [facility] ([place]) Comment on above: Result Comment: Use of this assay is not recommended for patients undergoing treatment with eltrombopag due to the potential for falsely elevated results. Performed By: #### A LUCRECIA, CMP, GFR, A1C, ADIFF, CBC, LIPID #### [address] [address] BUN/Creatinine Ratio 22 ratio Normal 7-27 Counts include 234 beds at the [facility] ([place]) Comment on above: Performed By: #### A LUCRECIA, CMP, GFR, A1C, ADIFF, CBC, LIPID #### [address] [address] Calcium [Mass/Vol] 9.3 mg/dL Normal 8.4-10.2 [facility] ([place]) Comment on above: Performed By: #### A LUCRECIA, CMP, GFR, A1C, ADIFF, CBC, LIPID #### [address] [address] Chloride [Moles/Vol] 105 mmol/L Normal 98-107 Counts include 234 beds at the [facility] ([place]) Comment on above: Performed By: #### A LUCRECIA, CMP, GFR, A1C, ADIFF, CBC, LIPID #### [address] [address] CO2 [Moles/Vol] 28 mmol/L Normal 23-31 [facility] ([place]) Comment on above: Performed By: #### A LUCRECIA, CMP, GFR, A1C, ADIFF, CBC, LIPID #### [address] [address] Creatinine [Mass/Vol] 0.82 mg/dL Normal 0.55-1.02 [facility] ([place]) Comment on above: Performed By: #### A LUCRECIA, CMP, GFR, A1C, ADIFF, CBC, LIPID #### [address] [address] Electrolyte Balance 9.0 mEq/L Normal 4.0-15.0 [facility] ([place]) Comment on above: Performed By: #### A LUCRECIA, CMP, GFR, A1C, ADIFF, CBC, LIPID #### [address] [address] Globulin 4.0 G/dL Normal [facility] ([place]) Comment on above: Performed By: #### A LUCRECIA, CMP, GFR, A1C, ADIFF, CBC, LIPID #### [address] [address] Glucose [Mass/Vol] 126 mg/dL High 80-115 [facility] ([place]) Comment on above: Performed By: #### A LUCRECIA, CMP, GFR, A1C, ADIFF, CBC, LIPID #### [address] [address] Potassium [Moles/Vol] 4.2 mmol/L Normal 3.5-5.1 [facility] ([place] Comment on above: Performed By: #### A LUCRECIA, CMP, GFR, A1C, ADIFF, CBC, LIPID #### [address] [address] Sodium [Moles/Vol] 142 mmol/L Normal 136-145 [facility] ([place]) Comment on above: Performed By: #### A LUCRECIA, CMP, GFR, A1C, ADIFF, CBC, LIPID #### [address] [address] Total Protein 7.3 G/dL Normal 6.4-8.2 [facility] ([place]) Comment on above: Performed By: #### A LUCRECIA, CMP, GFR, A1C, ADIFF, CBC, LIPID #### [address] [address] Urea nitrogen [Mass/Vol] 18 mg/dL Normal 7-18 [facility] ([place] Comment on above: Performed By: #### A LUCRECIA, CMP, GFR, A1C, ADIFF, CBC, LIPID #### [place] [id number] LABORATORYOrdered By: SYSTEM SYSTEM on 05-23-2023 Albumin BCP dye [Mass/Vol] 3.3 G/dL Low 3.4 - 4.8 G/dL AO ADM SS Albumin/Globulin [Mass ratio] 0.8 {ratio} Low 1.1 - 2.5 ratio AO ADM SS ALP [Catalytic activity/Vol] 99 U/L Normal 40 - 135 U/L AO ADM SS ALT With P-5'-P [Catalytic activity/Vol] 35 U/L Normal 14 - 59 U/L AO ADM SS AST With P-5'-P [Catalytic activity/Vol] 21 U/L Normal 10 - 40 U/L AO ADM SS Bilirubin [Mass/Vol] 0.3 mg/dL Normal 0.2 - 1 .0 mg/dL AO ADM SS Comment on above: Interpretive Data: U se of this assay is not recommended for patients undergoing treatment with eltrombopag due to the potential for falsely elevated results. Calcium [Mass/Vol] 9.3 mg/dL Normal 8.4 - 10. 2 mg/dL AO ADM SS Chloride [Moles/Vol] 105 mmol/L Normal 98 - 10 7 mmol/L AO ADM SS CO2 [Moles/Vol] 28 mmol/L Normal 23 - 31 mmol/L AO ADM SS Creatinine [Mass/Vol] 0.82 mg/dL Normal 0.55 - 1.02 mg/dL AO ADM SS Electrolyte Balance 9.0 mEq/L Normal 4.0 - 15 .0 mEq/L AO ADM SS GFR/1.73 sq M.predicted among blacks MDRD (S/P/Bld) [Vol rate/Area] 85 ml/min/1.73sqm Invalid Interpretation Code AO Chemistry S Comment on above: Interpretive Data: GFR Population mean for , Non- Americans Ages 20-29 = 116 mL/min/1.73 sq.m. Ages 30-39 = 107 mL/min/1.73 sq.m. Ages 40-49 = 99 mL/min/1.73 sq.m. Ages 50-59 = 93 mL/min/1.73 sq.m. Ages 60-69 = 85 mL/min/1.73 sq.m. Ages 70+ = 75 mL/min/1.73 sq.m. Chronic Kidney Disease: Less than 60 mL/min/1.73 square meters End Stage Renal Disease: Less than 15 mL/min/1.73 square meters GFR/1.73 sq M.predicted among non-blacks MDRD (S/P/Bld) [Vol rate/Area] 70 ml/min/1.73sqm Invalid Interpretation Code AO Chemistry S Comment on above: Interpretive Data: GFR Population mean for , Non- Americans Ages 20-29 = 116 mL/min/1.73 sq.m. Ages 30-39 = 107 mL/min/1.73 sq.m. Ages 40-49 = 99 mL/min/1.73 sq.m. Ages 50-59 = 93 mL/min/1.73 sq.m. Ages 60-69 = 85 mL/min/1.73 sq.m. Ages 70+ = 75 mL/min/1.73 sq.m. Chronic Kidney Disease: Less than 60 mL/min/1.73 square meters End Stage Renal Disease: Less than 15 mL/min/1.73 square meters Globulin 4.0 G/dL Invalid Interpretation Code AO ADM SS Glucose [Mass/Vol] 126 mg/dL High 80 - 115 mg/dL AO ADM SS HbA1c (Bld) [Mass fraction] 5.9 % Normal 4.3 - 6.4 % AO ADM SS Potassium [Moles/Vol] 4.2 mmol/L Normal 3.5 - 5.1 mmol/L AO ADM SS Protein [Mass/Vol] 7.3 G/dL Normal 6.4 - 8.2 G/dL AO ADM SS Sodium [Moles/Vol] 142 mmol/L Normal 136 - 145 mmol/L AO ADM SS Urea nitrogen [Mass/Vol] 18 mg/dL Normal 7 - 18 mg/dL AO ADM SS Urea nitrogen/Creatinine [Mass ratio] 22 ratio Normal 7 - 27 ratio AO ADM SS LABORATORYOrdered By: Jess Callejas on 05-23-2023 Cholesterol [Mass/Vol] 151 mg/dL Normal 0 - 200 mg/dL AO ADM SS Comment on above: Interpretive Data: C holesterol Reference Interval: Less than 200 Desirable 200-239 Borderline high risk 240 and above High risk Cholesterol in HDL [Mass/Vol] 48 mg/dL Normal 40 - 60 mg/dL AO ADM SS Cholesterol in LDL [Mass/Vol] 87 mg/dL Normal 0 - 130 mg/dL AO ADM SS Triglyceride [Mass/Vol] 82 mg/dL Normal 0 - 150 mg/dL AO ADM SS Comment on above: Interpretive Data: T riglyceride Reference Interval: Less than 150 Normal 150-199 Borderline high risk 200-499 High risk 500 or higher Very high risk LIPIDon 05-23-2023 Cholesterol [Mass/Vol] 151 mg/dL Normal 0-200 [facility] ([place] Comment on above: Result Comment: Chol esterol Reference Interval: Less than 200 Desirable 200-239 Borderline high risk 240 and above High risk Performed By: #### A LUCRECIA, CMP, GFR, A1C, ADIFF, CBC, LIPID #### [address] [address] Cholesterol in HDL [Mass/Vol] 48 mg/dL Normal 40-60 [facility] ([place]) Comment on above: Performed By: #### A LUCRECIA, CMP, GFR, A1C, ADIFF, CBC, LIPID #### [address] [address] Cholesterol in LDL [Mass/Vol] 87 mg/dL Normal 0-130 [facility]) Comment on above: Performed By: #### A LUCRECIA, CMP, GFR, A1C, ADIFF, CBC, LIPID #### [address] [address] Triglyceride [Mass/Vol] 82 mg/dL Normal 0-150 [facility] ([place]) Comment on above: Result Comment: Trig lyceride Reference Interval: Less than 150 Normal 150-199 Borderline high risk 200-499 High risk 500 or higher Very high risk Performed By: #### A LUCRECIA, CMP, GFR, A1C, ADIFF, CBC, LIPID #### [address] [address] .Auto Diffon 01-10-2023 Basophil, Absolute 0.0 10 3/mcL Normal 0.0-0.2 Counts include 234 beds at the [facility] ([place]) Comment on above: Performed By: #### G FR, FE, ADIFF, ANEU, CMP, CBC, A1C #### [address] [address] Basophils/100 WBC (Bld) 1.1 % Normal 0.0-2.5 [facility] ([place]) Comment on above: Performed By: #### G FR, FE, ADIFF, ANEU, CMP, CBC, A1C #### [address] [address] Eosinophil, Absolute 0.2 10 3/mcL Normal 0.0-0.4 [facility] ([place]) Comment on above: Performed By: #### G FR, FE, ADIFF, ANEU, CMP, CBC, A1C #### [address] [address] Eosinophils/100 WBC (Bld) 4.4 % Normal 0.0-7.0 [facility] ([place] Comment on above: Performed By: #### G FR, FE, ADIFF, ANEU, CMP, CBC, A1C #### [address] [address] Lymphocyte, Absolute 1.0 10 3/mcL Normal 0.8-3.9 [facility] ([place]) Comment on above: Performed By: #### G FR, FE, ADIFF, ANEU, CMP, CBC, A1C #### [address] [address] Lymphocytes/100 WBC (Bld) 22.9 % Normal 10.0-50.0 [facility] ([place] Comment on above: Performed By: #### G FR, FE, ADIFF, ANEU, CMP, CBC, A1C #### [address] [address] Monocyte, Absolute 0.3 10 3/mcL Normal 0.2-1.0 Counts include 234 beds at the [facility] ([place]) Comment on above: Performed By: #### G FR, FE, ADIFF, ANEU, CMP, CBC, A1C #### [address] [address] Monocytes/100 WBC (Bld) 7.7 % Normal 1.7-13.0 [facility] ([place]) Comment on above: Performed By: #### G FR, FE, ADIFF, ANEU, CMP, CBC, A1C #### [address] [address] Neutrophils/100 WBC (Bld) 63.9 % Normal 37.0-80.0 [facility] ([place] Comment on above: Performed By: #### G FR, FE, ADIFF, ANEU, CMP, CBC, A1C #### [address] [address] .GFRon 01-10-2023 GFR 72 ml/min/1.73sqm Normal [facility] ([place]) Comment on above: Result Comment: GFR Population mean for , Non- Americans Ages 20-29 = 116 mL/min/1.73 sq.m. Ages 30-39 = 107 mL/min/1.73 sq.m. Ages 40-49 = 99 mL/min/1.73 sq.m. Ages 50-59 = 93 mL/min/1.73 sq.m. Ages 60-69 = 85 mL/min/1.73 sq.m. Ages 70+ = 75 mL/min/1.73 sq.m. Chronic Kidney Disease: Less than 60 mL/min/1.73 square meters End Stage Renal Disease: Less than 15 mL/min/1.73 square meters Performed By: #### A LUCRECIA, CMP, GFR, A1C, ADIFF, CBC, LIPID #### [address] [address] GFR Non- 59 ml/min/1.73sqm Normal [facility] ([place]) Comment on above: Result Comment: GFR Population mean for , Non- Americans Ages 20-29 = 116 mL/min/1.73 sq.m. Ages 30-39 = 107 mL/min/1.73 sq.m. Ages 40-49 = 99 mL/min/1.73 sq.m. Ages 50-59 = 93 mL/min/1.73 sq.m. Ages 60-69 = 85 mL/min/1.73 sq.m. Ages 70+ = 75 mL/min/1.73 sq.m. Chronic Kidney Disease: Less than 60 mL/min/1.73 square meters End Stage Renal Disease: Less than 15 mL/min/1.73 square meters Performed By: #### A LUCRECIA, CMP, GFR, A1C, ADIFF, CBC, LIPID #### [place] [address] .NEUABSon 01-10-2023 Neutrophil, Absolute 2.8 10 3/mcL Low 2.9-6.2 [facility] ([place]) Comment on above: Performed By: #### G FR, FE, ADIFF, ANEU, CMP, CBC, A1C #### [place] [address] A1Con 01-10-2023 HbA1c (Bld) [Mass fraction] 6.1 % Normal 4.3-6.4 [facility] ([place] Comment on above: Performed By: #### A LUCRECIA, CMP, GFR, A1C, ADIFF, CBC, LIPID #### [place] [address] CBCon 01-10-2023 Erythrocyte distribution width (RBC) [Ratio] 16.1 % High 11.5-14.5 [facility] ([place] Comment on above: Performed By: #### G FR, FE, ADIFF, ANEU, CMP, CBC, A1C #### [place] [address] Hematocrit (Bld) [Volume fraction] 41.3 % Normal 37.0-47.0 [facility] ([place] Comment on above: Performed By: #### G FR, FE, ADIFF, ANEU, CMP, CBC, A1C #### [place] [address] Hgb 13.5 G/dL Normal 12.0-16.0 [facility] ([place] Comment on above: Performed By: #### G FR, FE, ADIFF, ANEU, CMP, CBC, A1C #### [place] [address] MCH (RBC) [Entitic mass] 29.0 pg Normal 27.0-31.2 [facility] ([place] Comment on above: Performed By: #### G FR, FE, ADIFF, ANEU, CMP, CBC, A1C #### [address] [address] MCHC 32.6 G/dL Low 33.0-37.0 [facility] ([place] Comment on above: Performed By: #### G FR, FE, ADIFF, ANEU, CMP, CBC, A1C #### [address] [address] MCV (RBC) [Entitic vol] 88.9 fL Normal 80.0-94.0 [facility] ([place] Comment on above: Performed By: #### G FR, FE, ADIFF, ANEU, CMP, CBC, A1C #### [address] [address] Platelet 333 10 3/mcL Normal 130-400 [facility] ([place] Comment on above: Performed By: #### G FR, FE, ADIFF, ANEU, CMP, CBC, A1C #### [address] [address] Platelet mean volume (Bld) [Entitic vol] 9.8 fL Normal 7.4-10.4 [facility] ([place] Comment on above: Performed By: #### G FR, FE, ADIFF, ANEU, CMP, CBC, A1C #### [address] [address] RBC 4.65 10 6/mcL Normal 4.20-5.40 [facility] ([place]) Comment on above: Performed By: #### G FR, FE, ADIFF, ANEU, CMP, CBC, A1C #### [address] [address] WBC 4.4 10 3/mcL Low 4.6-10.8 [facility] ([place] Comment on above: Performed By: #### G FR, FE, ADIFF, ANEU, CMP, CBC, A1C #### [address] [address] CMPon 01-10-2023 Albumin Level 3.7 G/dL Normal 3.4-4.8 [facility] ([place] Comment on above: Performed By: #### A LUCRECIA, CMP, GFR, A1C, ADIFF, CBC, LIPID #### [address] [address] Albumin/Globulin [Mass ratio] 0.9 {ratio} Low 1.1-2.5 [facility] ([place]) Comment on above: Performed By: #### A LUCRECIA, CMP, GFR, A1C, ADIFF, CBC, LIPID #### [address] [address] ALP [Catalytic activity/Vol] 99 U/L Normal 40-135 [facility] ([place]) Comment on above: Performed By: #### A LUCRECIA, CMP, GFR, A1C, ADIFF, CBC, LIPID #### [address] [address] ALT [Catalytic activity/Vol] 33 U/L Normal 14-59 [facility] ([place]) Comment on above: Performed By: #### A LUCRECIA, CMP, GFR, A1C, ADIFF, CBC, LIPID #### [address] [address] AST [Catalytic activity/Vol] 20 U/L Normal 10-40 [facility] ([place]) Comment on above: Performed By: #### A LUCRECIA, CMP, GFR, A1C, ADIFF, CBC, LIPID #### [address] [address] Bili Total 0.3 mg/dL Normal 0.2-1.0 [facility] ([place]) Comment on above: Result Comment: Use of this assay is not recommended for patients undergoing treatment with eltrombopag due to the potential for falsely elevated results. Performed By: #### A LUCRECIA, CMP, GFR, A1C, ADIFF, CBC, LIPID #### [address] [address] BUN/Creatinine Ratio 21 ratio Normal 7-27 Counts include 234 beds at the [facility] ([place]) Comment on above: Performed By: #### A LUCRECIA, CMP, GFR, A1C, ADIFF, CBC, LIPID #### [address] [id number] Calcium [Mass/Vol] 9.2 mg/dL Normal 8.4-10.2 [facility]ly [facility] ([place]) Comment on above: Performed By: #### A LUCRECIA, CMP, GFR, A1C, ADIFF, CBC, LIPID #### [address] [address] Chloride [Moles/Vol] 102 mmol/L Normal 98-107 Counts include 234 beds at the [facility] ([place]) Comment on above: Performed By: #### A LUCRECIA, CMP, GFR, A1C, ADIFF, CBC, LIPID #### [address] [address] CO2 [Moles/Vol] 30 mmol/L Normal 23-31 [facility] ([place]) Comment on above: Performed By: #### A LUCRECIA, CMP, GFR, A1C, ADIFF, CBC, LIPID #### [address] [address] Creatinine [Mass/Vol] 0.95 mg/dL Normal 0.55-1.02 [facility] ([place]) Comment on above: Performed By: #### A LUCRECIA, CMP, GFR, A1C, ADIFF, CBC, LIPID #### [address] [address] Electrolyte Balance 9.0 mEq/L Normal 4.0-15.0 Formerly [facility] ([place]) Comment on above: Performed By: #### A LUCRECIA, CMP, GFR, A1C, ADIFF, CBC, LIPID #### [address] [address] Globulin 3.9 G/dL Normal [facility] ([place]) Comment on above: Performed By: #### A LUCRECIA, CMP, GFR, A1C, ADIFF, CBC, LIPID #### [address] [address] Glucose [Mass/Vol] 123 mg/dL High 80-115 [facility] ([place]) Comment on above: Performed By: #### A LUCRECIA, CMP, GFR, A1C, ADIFF, CBC, LIPID #### [address] [address] Potassium [Moles/Vol] 4.3 mmol/L Normal 3.5-5.1 [facility] ([place]) Comment on above: Performed By: #### A LUCRECIA, CMP, GFR, A1C, ADIFF, CBC, LIPID #### [address] [address] Sodium [Moles/Vol] 141 mmol/L Normal 136-145 [facility] ([place]) Comment on above: Performed By: #### A LUCRECIA, CMP, GFR, A1C, ADIFF, CBC, LIPID #### [address] [address] Total Protein 7.6 G/dL Normal 6.4-8.2 [facility] ([place]) Comment on above: Performed By: #### A LUCRECIA, CMP, GFR, A1C, ADIFF, CBC, LIPID #### [address] [address] Urea nitrogen [Mass/Vol] 20 mg/dL High -18 [facility] ([place]) Comment on above: Performed By: #### A LUCRECIA, CMP, GFR, A1C, ADIFF, CBC, LIPID #### [address] [address] FEon 01-10-2023 Iron [Mass/Vol] 127 ug/dL Normal 50-170 [facility] ([place]) Comment on above: Performed By: #### A LUCRECIA, CMP, GFR, A1C, ADIFF, CBC, LIPID #### [address] [address] LABORATORYOrdered By: SYSTEM SYSTEM on 10-11-2022 Albumin BCP dye [Mass/Vol] 3.3 G/dL Invalid Interpretation Code 3.4 - 4.8 G/dL AO ADM SS Albumin/Globulin [Mass ratio] 1.1 {ratio} Invalid Interpretation Code 1.1 - 2.5 ratio AO ADM SS ALP [Catalytic activity/Vol] 87 U/L Invalid Interpretation Code 40 - 135 U/L AO ADM SS ALT With P-5'-P [Catalytic activity/Vol] 31 U/L Invalid Interpretation Code 14 - 59 U/L AO ADM SS AST With P-5'-P [Catalytic activity/Vol] 18 U/L Invalid Interpretation Code 10 - 40 U/L AO ADM SS Bilirubin [Mass/Vol] 0.3 mg/dL Invalid Interpretation Code 0.2 - 1.0 mg/dL AO ADM SS Calcium [Mass/Vol] 8.8 mg/dL Invalid Interpretation Code 8.4 - 10.2 mg/dL AO ADM SS Chloride [Moles/Vol] 104 mmol/L Invalid Interpretation Code 98 - 107 mmol/L AO ADM SS CO2 [Moles/Vol] 29 mmol/L Invalid Interpretation Code 23 - 31 mmol/L AO ADM SS Creatinine [Mass/Vol] 0.83 mg/dL Invalid Interpretation Code 0.55 - 1.02 mg/dL AO ADM SS Electrolyte Balance 9.0 mEq/L Invalid Interpretation Code 4.0 - 15.0 mEq/L AO ADM SS GFR/1.73 sq M.predicted among blacks MDRD (S/P/Bld) [Vol rate/Area] 84 ml/min/1.73sqm Invalid Interpretation Code AO Chemistry S GFR/1.73 sq M.predicted among non-blacks MDRD (S/P/Bld) [Vol rate/Area] 69 ml/min/1.73sqm Invalid Interpretation Code AO Chemistry S Globulin 3.0 G/dL Invalid Interpretation Code AO ADM SS Glucose [Mass/Vol] 123 mg/dL Invalid Interpretation Code 80 - 115 mg/dL AO ADM SS HbA1c (Bld) [Mass fraction] 5.9 % Invalid Interpretation Code 4.3 - 6.4 % AO ADM SS Potassium [Moles/Vol] 3.9 mmol/L Invalid Interpretation Code 3.5 - 5.1 mmol/L AO ADM SS Protein [Mass/Vol] 6.3 G/dL Invalid Interpretation Code 6.4 - 8.2 G/dL AO ADM SS Sodium [Moles/Vol] 142 mmol/L Invalid Interpretation Code 136 - 145 mmol/L AO ADM SS Urea nitrogen [Mass/Vol] 17 mg/dL Invalid Interpretation Code 7 - 18 mg/dL AO ADM SS Urea nitrogen/Creatinine [Mass ratio] 20 ratio Invalid Interpretation Code 7 - 27 ratio AO ADM SS LABORATORYOrdered By: Linsey Vera on 10-11-2022 Albumin DL <= 20 mg/L (U) [Mass/Vol] 1029 mcg/dL Invalid Interpretation Code AO ADM SS Albumin/Creatinine DL <= 20 mg/L (U) [Mass ratio] 4 mcg/mg Invalid Interpretation Code 0 - 30 mcg/mg AO ADM SS Creatinine (U) [Mass/Vol] 273.0 mg/dL Invalid Interpretation Code 28.0 - 117.0 mg/dL AO ADM SS LABORATORYOrdered By: Yasmeen Simmons on 10-11-2022 Basophil, Absolute 0.0 103/mcL Invalid Interpretation Code 0.0 - 0.2 10^3/mcL AO Workflow SS Basophils/100 WBC (Bld) 0.6 % Invalid Interpretation Code 0.0 - 2.5 % AO Workflow SS Eosinophil, Absolute 0.2 103/mcL Invalid Interpretation Code 0.0 - 0.4 10^3/mcL AO Workflow SS Eosinophils/100 WBC (Bld) 4.2 % Invalid Interpretation Code 0.0 - 7.0 % AO Workflow SS Erythrocyte distribution width (RBC) [Ratio] 16.4 % Invalid Interpretation Code 11.5 - 14.5 % AO Workflow SS Hematocrit (Bld) [Volume fraction] 34.8 % Invalid Interpretation Code 37.0 - 47.0 % AO Workflow SS Hemoglobin (Bld) [Mass/Vol] 11.5 G/dL Invalid Interpretation Code 12.0 - 16.0 G/dL AO Workflow SS Lymphocyte, Absolute 1.0 103/mcL Invalid Interpretation Code 0.8 - 3.9 10^3/mcL AO Workflow SS Lymphocytes/100 WBC (Bld) 21.5 % Invalid Interpretation Code 10.0 - 50.0 % AO Workflow SS MCH (RBC) [Entitic mass] 28.8 pg Invalid Interpretation Code 27.0 - 31.2 pg AO Workflow SS MCHC 33.0 G/dL Invalid Interpretation Code 33.0 - 37.0 G/dL AO Workflow SS MCV (RBC) [Entitic vol] 87.3 fL Invalid Interpretation Code 80.0 - 94.0 fL AO Workflow SS Monocyte, Absolute 0.4 103/mcL Invalid Interpretation Code 0.2 - 1.0 10^3/mcL AO Workflow SS Monocytes/100 WBC (Bld) 8.1 % Invalid Interpretation Code 1.7 - 13.0 % AO Workflow SS Neutrophil, Absolute 3.0 103/mcL Invalid Interpretation Code 2.9 - 6.2 10^3/mcL AO Workflow SS Neutrophils/100 WBC (Bld) 65.6 % Invalid Interpretation Code 37.0 - 80.0 % AO Workflow SS Platelet mean volume (Bld) [Entitic vol] 11.0 fL Invalid Interpretation Code 7.4 - 10.4 fL AO Workflow SS Platelets (Bld) [#/Vol] 308 103/mcL Invalid Interpretation Code 130 - 400 10^3/mcL AO Workflow SS RBC (Bld) [#/Vol] 3.99 106/mcL Invalid Interpretation Code 4.20 - 5.40 10^6/mcL AO Workflow SS WBC (Bld) [#/Vol] 4.6 103/mcL Invalid Interpretation Code 4.6 - 10.8 10^3/mcL AO Workflow SS LABORATORYOrdered By: SYSTEM SYSTEM on 06-30-2022 Albumin BCP dye [Mass/Vol] 3.6 G/dL Invalid Interpretation Code 3.4 - 4.8 G/dL AO ADM SS Albumin/Globulin [Mass ratio] 1.1 {ratio} Invalid Interpretation Code 1.1 - 2.5 ratio AO ADM SS ALP [Catalytic activity/Vol] 98 U/L Invalid Interpretation Code 40 - 135 U/L AO ADM SS ALT With P-5'-P [Catalytic activity/Vol] 28 U/L Invalid Interpretation Code 14 - 59 U/L AO ADM SS AST With P-5'-P [Catalytic activity/Vol] 22 U/L Invalid Interpretation Code 10 - 40 U/L AO ADM SS Bilirubin [Mass/Vol] 0.4 mg/dL Invalid Interpretation Code 0.2 - 1.0 mg/dL AO ADM SS Calcium [Mass/Vol] 9.2 mg/dL Invalid Interpretation Code 8.4 - 10.2 mg/dL AO ADM SS Chloride [Moles/Vol] 104 mmol/L Invalid Interpretation Code 98 - 107 mmol/L AO ADM SS CO2 [Moles/Vol] 31 mmol/L Invalid Interpretation Code 23 - 31 mmol/L AO ADM SS Creatinine [Mass/Vol] 0.87 mg/dL Invalid Interpretation Code 0.55 - 1.02 mg/dL AO ADM SS Electrolyte Balance 6.0 mEq/L Invalid Interpretation Code 4.0 - 15.0 mEq/L AO ADM SS Free T4 [Mass/Vol] 0.99 ng/dL Invalid Interpretation Code 0.76 - 1.46 ng/dL AO ADM SS GFR 79 ml/min/1.73sqm Invalid Interpretation Code AO Chemistry S GFR Non- 65 ml/min/1.73sqm Invalid Interpretation Code AO Chemistry S Globulin 3.3 G/dL Invalid Interpretation Code AO ADM SS Glucose [Mass/Vol] 113 mg/dL Invalid Interpretation Code 80 - 115 mg/dL AO ADM SS HbA1c (Bld) [Mass fraction] 6.2 % Invalid Interpretation Code 4.3 - 6.4 % AO ADM SS Potassium [Moles/Vol] 4.2 mmol/L Invalid Interpretation Code 3.5 - 5.1 mmol/L AO ADM SS Protein [Mass/Vol] 6.9 G/dL Invalid Interpretation Code 6.4 - 8.2 G/dL AO ADM SS Sodium [Moles/Vol] 141 mmol/L Invalid Interpretation Code 136 - 145 mmol/L AO ADM SS TSH Qn 2.03 m[IU]/L Invalid Interpretation Code 0.36 - 3.74 mcIU/mL AO ADM SS Urea nitrogen [Mass/Vol] 18 mg/dL Invalid Interpretation Code 7 - 18 mg/dL AO ADM SS Urea nitrogen/Creatinine [Mass ratio] 21 ratio Invalid Interpretation Code 7 - 27 ratio AO ADM SS Vit. D 25-Hydroxy 33.3 ng/mL Invalid Interpretation Code AO ADM SS LABORATORYOrdered By: Awa Melton on 06-30-2022 Basophil, Absolute 0.0 103/mcL Invalid Interpretation Code 0.0 - 0.2 10^3/mcL AO Workflow SS Basophils/100 WBC (Bld) 0.9 % Invalid Interpretation Code 0.0 - 2.5 % AO Workflow SS Eosinophil, Absolute 0.2 103/mcL Invalid Interpretation Code 0.0 - 0.4 10^3/mcL AO Workflow SS Eosinophils/100 WBC (Bld) 5.6 % Invalid Interpretation Code 0.0 - 7.0 % AO Workflow SS Erythrocyte distribution width (RBC) [Ratio] 16.0 % Invalid Interpretation Code 11.5 - 14.5 % AO Workflow SS Hematocrit (Bld) [Volume fraction] 38.3 % Invalid Interpretation Code 37.0 - 47.0 % AO Workflow SS Hemoglobin (Bld) [Mass/Vol] 12.5 G/dL Invalid Interpretation Code 12.0 - 16.0 G/dL AO Workflow SS Lymphocyte, Absolute 0.9 103/mcL Invalid Interpretation Code 0.8 - 3.9 10^3/mcL AO Workflow SS Lymphocytes/100 WBC (Bld) 26.3 % Invalid Interpretation Code 10.0 - 50.0 % AO Workflow SS MCH (RBC) [Entitic mass] 27.9 pg Invalid Interpretation Code 27.0 - 31.2 pg AO Workflow SS MCHC 32.7 G/dL Invalid Interpretation Code 33.0 - 37.0 G/dL AO Workflow SS MCV (RBC) [Entitic vol] 85.3 fL Invalid Interpretation Code 80.0 - 94.0 fL AO Workflow SS Monocyte, Absolute 0.3 103/mcL Invalid Interpretation Code 0.2 - 1.0 10^3/mcL AO Workflow SS Monocytes/100 WBC (Bld) 8.0 % Invalid Interpretation Code 1.7 - 13.0 % AO Workflow SS Neutrophil, Absolute 2.1 103/mcL Invalid Interpretation Code 2.9 - 6.2 10^3/mcL AO Workflow SS Neutrophils/100 WBC (Bld) 59.2 % Invalid Interpretation Code 37.0 - 80.0 % AO Workflow SS Platelet mean volume (Bld) [Entitic vol] 9.7 fL Invalid Interpretation Code 7.4 - 10.4 fL AO Workflow SS Platelets (Bld) [#/Vol] 312 103/mcL Invalid Interpretation Code 130 - 400 10^3/mcL AO Workflow SS RBC (Bld) [#/Vol] 4.49 106/mcL Invalid Interpretation Code 4.20 - 5.40 10^6/mcL AO Workflow SS WBC (Bld) [#/Vol] 3.5 103/mcL Invalid Interpretation Code 4.6 - 10.8 10^3/mcL AO Workflow SS LABORATORYOrdered By: Argentina Albright on 06-30-2022 Cholesterol [Mass/Vol] 148 mg/dL Invalid Interpretation Code 0 - 200 mg/dL AO ADM SS Cholesterol in HDL [Mass/Vol] 45 mg/dL Invalid Interpretation Code 40 - 60 mg/dL AO ADM SS Cholesterol in LDL [Mass/Vol] 87 mg/dL Invalid Interpretation Code 0 - 130 mg/dL AO ADM SS Triglyceride [Mass/Vol] 81 mg/dL Invalid Interpretation Code 0 - 150 mg/dL AO ADM SS LABORATORYOrdered By: Linsey Vera on 03-31-2022 Albumin BCP dye [Mass/Vol] 3.6 G/dL Invalid Interpretation Code 3.4 - 4.8 G/dL AO ADM SS Albumin/Globulin [Mass ratio] 1.0 {ratio} Invalid Interpretation Code 1.1 - 2.5 ratio AO ADM SS ALP [Catalytic activity/Vol] 104 U/L Invalid Interpretation Code 40 - 135 U/L AO ADM SS ALT With P-5'-P [Catalytic activity/Vol] 18 U/L Invalid Interpretation Code 14 - 59 U/L AO ADM SS AST With P-5'-P [Catalytic activity/Vol] 20 U/L Invalid Interpretation Code 10 - 40 U/L AO ADM SS Bilirubin [Mass/Vol] 0.3 mg/dL Invalid Interpretation Code 0.2 - 1.0 mg/dL AO ADM SS Calcium [Mass/Vol] 9.2 mg/dL Invalid Interpretation Code 8.4 - 10.2 mg/dL AO ADM SS Chloride [Moles/Vol] 104 mmol/L Invalid Interpretation Code 98 - 107 mmol/L AO ADM SS Cholesterol [Mass/Vol] 161 mg/dL Invalid Interpretation Code 0 - 200 mg/dL AO ADM SS Cholesterol in HDL [Mass/Vol] 44 mg/dL Invalid Interpretation Code 40 - 60 mg/dL AO ADM SS Cholesterol in LDL [Mass/Vol] 101 mg/dL Invalid Interpretation Code 0 - 130 mg/dL AO ADM SS CO2 [Moles/Vol] 29 mmol/L Invalid Interpretation Code 23 - 31 mmol/L AO ADM SS Creatinine [Mass/Vol] 0.86 mg/dL Invalid Interpretation Code 0.55 - 1.02 mg/dL AO ADM SS Electrolyte Balance 9.0 mEq/L Invalid Interpretation Code 4.0 - 15.0 mEq/L AO ADM SS Globulin 3.5 G/dL Invalid Interpretation Code AO ADM SS Glucose [Mass/Vol] 97 mg/dL Invalid Interpretation Code 80 - 115 mg/dL AO ADM SS HbA1c (Bld) [Mass fraction] 6.1 % Invalid Interpretation Code 4.3 - 6.4 % AO ADM SS Potassium [Moles/Vol] 4.3 mmol/L Invalid Interpretation Code 3.5 - 5.1 mmol/L AO ADM SS Protein [Mass/Vol] 7.1 G/dL Invalid Interpretation Code 6.4 - 8.2 G/dL AO ADM SS Sodium [Moles/Vol] 142 mmol/L Invalid Interpretation Code 136 - 145 mmol/L AO ADM SS Triglyceride [Mass/Vol] 80 mg/dL Invalid Interpretation Code 0 - 150 mg/dL AO ADM SS Urea nitrogen [Mass/Vol] 14 mg/dL Invalid Interpretation Code 7 - 18 mg/dL AO ADM SS Urea nitrogen/Creatinine [Mass ratio] 16 ratio Invalid Interpretation Code 7 - 27 ratio AO ADM SS LABORATORYOrdered By: Emma Walker on 03-31-2022 Basophil, Absolute 0.1 103/mcL Invalid Interpretation Code 0.0 - 0.2 10^3/mcL AO Workflow SS Basophils/100 WBC (Bld) 1.3 % Invalid Interpretation Code 0.0 - 2.5 % AO Workflow SS Eosinophil, Absolute 0.2 103/mcL Invalid Interpretation Code 0.0 - 0.4 10^3/mcL AO Workflow SS Eosinophils/100 WBC (Bld) 5.2 % Invalid Interpretation Code 0.0 - 7.0 % AO Workflow SS Erythrocyte distribution width (RBC) [Ratio] 15.0 % Invalid Interpretation Code 11.5 - 14.5 % AO Workflow SS Hematocrit (Bld) [Volume fraction] 40.7 % Invalid Interpretation Code 37.0 - 47.0 % AO Workflow SS Hemoglobin (Bld) [Mass/Vol] 13.3 G/dL Invalid Interpretation Code 12.0 - 16.0 G/dL AO Workflow SS Lymphocyte, Absolute 1.0 103/mcL Invalid Interpretation Code 0.8 - 3.9 10^3/mcL AO Workflow SS Lymphocytes/100 WBC (Bld) 24.9 % Invalid Interpretation Code 10.0 - 50.0 % AO Workflow SS MCH (RBC) [Entitic mass] 28.2 pg Invalid Interpretation Code 27.0 - 31.2 pg AO Workflow SS MCHC 32.6 G/dL Invalid Interpretation Code 33.0 - 37.0 G/dL AO Workflow SS MCV (RBC) [Entitic vol] 86.6 fL Invalid Interpretation Code 80.0 - 94.0 fL AO Workflow SS Monocyte, Absolute 0.4 103/mcL Invalid Interpretation Code 0.2 - 1.0 10^3/mcL AO Workflow SS Monocytes/100 WBC (Bld) 9.1 % Invalid Interpretation Code 1.7 - 13.0 % AO Workflow SS Neutrophil, Absolute 2.4 103/mcL Invalid Interpretation Code 2.9 - 6.2 10^3/mcL AO Workflow SS Neutrophils/100 WBC (Bld) 59.5 % Invalid Interpretation Code 37.0 - 80.0 % AO Workflow SS Platelet mean volume (Bld) [Entitic vol] 9.7 fL Invalid Interpretation Code 7.4 - 10.4 fL AO Workflow SS Platelets (Bld) [#/Vol] 314 103/mcL Invalid Interpretation Code 130 - 400 10^3/mcL AO Workflow SS RBC (Bld) [#/Vol] 4.70 106/mcL Invalid Interpretation Code 4.20 - 5.40 10^6/mcL AO Workflow SS WBC (Bld) [#/Vol] 4.1 103/mcL Invalid Interpretation Code 4.6 - 10.8 10^3/mcL AO Workflow SS LABORATORYOrdered By: SYSTEM SYSTEM on 03-31-2022 GFR 80 ml/min/1.73sqm Invalid Interpretation Code AO Chemistry S GFR Non- 66 ml/min/1.73sqm Invalid Interpretation Code AO Chemistry S LABORATORYOrdered By: Argentina Albright on 09-23-2021 Albumin BCP dye [Mass/Vol] 4.2 G/dL Invalid Interpretation Code 3.4 - 4.8 G/dL AO ADM SS Albumin/Globulin [Mass ratio] 1.2 {ratio} Invalid Interpretation Code 1.1 - 2.5 ratio AO ADM SS ALP [Catalytic activity/Vol] 100 U/L Invalid Interpretation Code 40 - 135 U/L AO ADM SS ALT With P-5'-P [Catalytic activity/Vol] 31 U/L Invalid Interpretation Code 14 - 59 U/L AO ADM SS AST With P-5'-P [Catalytic activity/Vol] 22 U/L Invalid Interpretation Code 10 - 40 U/L AO ADM SS Bilirubin [Mass/Vol] 0.4 mg/dL Invalid Interpretation Code 0.2 - 1.0 mg/dL AO ADM SS Calcium [Mass/Vol] 9.6 mg/dL Invalid Interpretation Code 8.4 - 10.2 mg/dL AO ADM SS Chloride [Moles/Vol] 102 mmol/L Invalid Interpretation Code 98 - 107 mmol/L AO ADM SS CO2 [Moles/Vol] 28 mmol/L Invalid Interpretation Code 23 - 31 mmol/L AO ADM SS Creatinine [Mass/Vol] 0.89 mg/dL Invalid Interpretation Code 0.55 - 1.02 mg/dL AO ADM SS Electrolyte Balance 9.0 mEq/L Invalid Interpretation Code 4.0 - 15.0 mEq/L AO ADM SS Globulin 3.4 G/dL Invalid Interpretation Code AO ADM SS Glucose [Mass/Vol] 110 mg/dL Invalid Interpretation Code 80 - 115 mg/dL AO ADM SS Iron [Mass/Vol] 30 ug/dL Invalid Interpretation Code 50 - 170 mcg/dL AO ADM SS Potassium [Moles/Vol] 4.2 mmol/L Invalid Interpretation Code 3.5 - 5.1 mmol/L AO ADM SS Protein [Mass/Vol] 7.6 G/dL Invalid Interpretation Code 6.4 - 8.2 G/dL AO ADM SS Sodium [Moles/Vol] 139 mmol/L Invalid Interpretation Code 136 - 145 mmol/L AO ADM SS Urea nitrogen [Mass/Vol] 15 mg/dL Invalid Interpretation Code 7 - 18 mg/dL AO ADM SS Urea nitrogen/Creatinine [Mass ratio] 17 ratio Invalid Interpretation Code 7 - 27 ratio AO ADM SS LABORATORYOrdered By: Awa Melton on 09-23-2021 Basophil, Absolute 0.1 103/mcL Invalid Interpretation Code 0.0 - 0.2 10^3/mcL AO Workflow SS Basophils/100 WBC (Bld) 2.4 % Invalid Interpretation Code 0.0 - 2.5 % AO Workflow SS Eosinophil, Absolute 0.2 103/mcL Invalid Interpretation Code 0.0 - 0.4 10^3/mcL AO Workflow SS Eosinophils/100 WBC (Bld) 4.4 % Invalid Interpretation Code 0.0 - 7.0 % AO Workflow SS Erythrocyte distribution width (RBC) [Ratio] 15.2 % Invalid Interpretation Code 11.5 - 14.5 % AO Workflow SS Hematocrit (Bld) [Volume fraction] 42.6 % Invalid Interpretation Code 37.0 - 47.0 % AO Workflow SS Hgb 13.7 G/dL Invalid Interpretation Code 12.0 - 16.0 G/dL AO Workflow SS Lymphocyte, Absolute 1.1 103/mcL Invalid Interpretation Code 0.8 - 3.9 10^3/mcL AO Workflow SS Lymphocytes/100 WBC (Bld) 25.8 % Invalid Interpretation Code 10.0 - 50.0 % AO Workflow SS MCH (RBC) [Entitic mass] 28.3 pg Invalid Interpretation Code 27.0 - 31.2 pg AO Workflow SS MCHC 32.1 G/dL Invalid Interpretation Code 33.0 - 37.0 G/dL AO Workflow SS MCV (RBC) [Entitic vol] 88.1 fL Invalid Interpretation Code 80.0 - 94.0 fL AO Workflow SS Monocyte, Absolute 0.4 103/mcL Invalid Interpretation Code 0.2 - 1.0 10^3/mcL AO Workflow SS Monocytes/100 WBC (Bld) 8.6 % Invalid Interpretation Code 1.7 - 13.0 % AO Workflow SS Neutrophil, Absolute 2.4 103/mcL Invalid Interpretation Code 2.9 - 6.2 10^3/mcL AO Workflow SS Neutrophils/100 WBC (Bld) 58.8 % Invalid Interpretation Code 37.0 - 80.0 % AO Workflow SS Platelet 408 103/mcL Invalid Interpretation Code 130 - 400 10^3/mcL AO Workflow SS Platelet mean volume (Bld) [Entitic vol] 8.8 fL Invalid Interpretation Code 7.4 - 10.4 fL AO Workflow SS RBC 4.84 106/mcL Invalid Interpretation Code 4.20 - 5.40 10^6/mcL AO Workflow SS WBC 4.1 103/mcL Invalid Interpretation Code 4.6 - 10.8 10^3/mcL AO Workflow SS LABORATORYOrdered By: SYSTEM SYSTEM on 09-23-2021 GFR 77 ml/min/1.73sqm Invalid Interpretation Code AO Chemistry S GFR Non- 64 ml/min/1.73sqm Invalid Interpretation Code AO Chemistry S Monocyte distribution width Auto (Bld) [Entitic vol] Not Performed 1 *NA* (09/23/21 10:43 AM) Invalid Interpretation Code 0.00 - 20.00 AO Hematology S Comment on above: Result Comment: MDW testing performed only on adult ER patients between the ages of 18-89 years. LABORATORYOrdered By: Geovanna Cisneros on 05-06-2021 Anisocytosis Ql (Bld) Slight (05/06/21 6:27 PM) Invalid Interpretation Code AO Auto Heme SS Band form neutrophils (Bld) [#/Vol] 1.0 10*3/uL Invalid Interpretation Code 0.0 - 5.0 % AO Auto Heme SS Basophil %, Manual 1.0 1 Invalid Interpretation Code 0.0 - 2.5 % AO Auto Heme SS Basophil, Absolute 0.00 103/mcL Invalid Interpretation Code 0.00 - 0.19 10^3/mcL AO Auto Heme SS Basophils/100 WBC (Bld) 0.4 % Invalid Interpretation Code 0.0 - 2.5 % AO Auto Heme SS Calcium [Mass/Vol] 8.5 mg/dL Invalid Interpretation Code 8.4 - 10.2 mg/dL AO ADM SS Chloride [Moles/Vol] 102 mmol/L Invalid Interpretation Code 98 - 107 mmol/L AO ADM SS CO2 [Moles/Vol] 29 mmol/L Invalid Interpretation Code 23 - 31 mmol/L AO ADM SS Creatinine [Mass/Vol] 0.89 mg/dL Invalid Interpretation Code 0.55 - 1.02 mg/dL AO ADM SS Dacrocytes LM Ql (Bld) Rare (05/06/21 6:27 PM) Invalid Interpretation Code AO Auto Heme SS Electrolyte Balance 8.0 mEq/L Invalid Interpretation Code AO ADM SS Eosinophil %, Manual 0.0 1 Invalid Interpretation Code 0.0 - 7.0 % AO Auto Heme SS Eosinophil, Absolute 0.00 103/mcL Invalid Interpretation Code 0.00 - 0.40 10^3/mcL AO Auto Heme SS Eosinophils/100 WBC (Bld) 0.0 % Invalid Interpretation Code 0.0 - 7.0 % AO Auto Heme SS Glucose [Mass/Vol] 94 mg/dL Invalid Interpretation Code 80 - 115 mg/dL AO ADM SS Lymphocyte %, Manual 17.0 1 Invalid Interpretation Code 10.0 - 50.0 % AO Auto Heme SS Lymphocyte, Absolute 0.50 103/mcL Invalid Interpretation Code 0.77 - 3.85 10^3/mcL AO Auto Heme SS Lymphocytes/100 WBC (Bld) 25.6 % Invalid Interpretation Code 10.0 - 50.0 % AO Auto Heme SS Monocyte %, Manual 7.0 1 Invalid Interpretation Code 1.7 - 13.0 % AO Auto Heme SS Monocyte, Absolute 0.20 103/mcL Invalid Interpretation Code 0.15 - 1.00 10^3/mcL AO Auto Heme SS Monocytes/100 WBC (Bld) 11.3 % Invalid Interpretation Code 1.7 - 13.0 % AO Auto Heme SS Natriuretic peptide.B prohormone N-Terminal [Mass/Vol] 63 pg/mL Invalid Interpretation Code 0 - 125 pg/mL AO ADM SS Neutrophil %, Manual 74.0 1 Invalid Interpretation Code 37.0 - 80.0 % AO Auto Heme SS Neutrophil, Absolute 1.30 103/mcL Invalid Interpretation Code 2.85 - 6.16 10^3/mcL AO Auto Heme SS Neutrophils/100 WBC (Bld) 62.7 % Invalid Interpretation Code 37.0 - 80.0 % AO Auto Heme SS Platelet Estimate Normal (05/06/21 6:27 PM) Invalid Interpretation Code AO Auto Heme SS Poikilocytosis LM Ql (Bld) Slight (05/06/21 6:27 PM) Invalid Interpretation Code AO Auto Heme SS Potassium [Moles/Vol] 4.6 mmol/L Invalid Interpretation Code 3.5 - 5.1 mmol/L AO ADM SS Sodium [Moles/Vol] 139 mmol/L Invalid Interpretation Code 136 - 145 mmol/L AO ADM SS Troponin I.cardiac DL <= 0.01 ng/mL [Mass/Vol] 7.2 ng/L Invalid Interpretation Code 0.0 - 51.4 ng/L AO ADM SS Urea nitrogen [Mass/Vol] 9 mg/dL Invalid Interpretation Code 7 - 18 mg/dL AO ADM SS Urea nitrogen/Creatinine [Mass ratio] 10 ratio Invalid Interpretation Code 7 - 27 ratio AO ADM SS LABORATORYOrdered By: ANA WOMACK on 05-06-2021 CBC Path Review Moderate to marked leukopenia with absolute neutropenia and some toxic changes. Rule out infection. Rule out drug effect. Invalid Interpretation Code AH Path Review Subsection Work Phone: LABORATORYOrdered By: Emma Walker on 05-06-2021 Erythrocyte distribution width (RBC) [Ratio] 15.0 % Invalid Interpretation Code 11.5 - 14.5 % AO Auto Heme SS Hematocrit (Bld) [Volume fraction] 39.4 % Invalid Interpretation Code 37.0 - 47.0 % AO Auto Heme SS Hemoglobin (Bld) [Mass/Vol] 12.8 G/dL Invalid Interpretation Code 12.0 - 16.0 G/dL AO Auto Heme SS MCH (RBC) [Entitic mass] 28.2 pg Invalid Interpretation Code 27.0 - 31.2 pg AO Auto Heme SS MCHC (RBC) [Mass/Vol] 32.4 G/dL Invalid Interpretation Code 33.0 - 37.0 G/dL AO Auto Heme SS MCV (RBC) [Entitic vol] 87.0 fL Invalid Interpretation Code 80.0 - 94.0 fL AO Auto Heme SS Platelet mean volume (Bld) [Entitic vol] 8.2 fL Invalid Interpretation Code 7.4 - 10.4 fL AO Auto Heme SS Platelets (Bld) [#/Vol] 307 103/mcL Invalid Interpretation Code 130 - 400 10^3/mcL AO Auto Heme SS RBC (Bld) [#/Vol] 4.53 106/mcL Invalid Interpretation Code 4.20 - 5.40 10^6/mcL AO Auto Heme SS WBC (Bld) [#/Vol] 2.10 103/mcL Invalid Interpretation Code 4.60 - 10.80 10^3/mcL AO Auto Heme SS LABORATORYOrdered By: SYSTEM SYSTEM on 05-06-2021 GFR 77 ml/min/1.73sqm Invalid Interpretation Code AO Chemistry S GFR Non- 64 ml/min/1.73sqm Invalid Interpretation Code AO Chemistry S No Panel Informationon 08-22 Colonoscopy Patient Name: Tam Moya Procedure Date: 08/22/2020 9:30 AM Date of : 1955 Admit Type: Outpatient Site: [facility] 1 Instrument Name: ELI [id number] Ethnicity: Not or Race: White Attending MD: Lev Narayanan DO Procedure: Colonoscopy Indications: Screening in patient at increased risk: Colorectal cancer in father 60 or older, Last colonoscopy: 2010 Patient Profile: 65 y/o female has family hx of colon cancer. Last colonoscopy was normal in 2010. Providers: Lev Narayanan DO (Doctor), Mika Dejesus LPN (Nurse), Phoebe Rodriguez CRNA (Anesthesia Staff), Brittany Eid, Revolving Field Assembler Referring: Naomi Fung Medicines: Monitored Anesthesia Care Complications: No immediate complications. Procedure: Pre-Anesthesia Assessment: - Prior to the procedure, a History and Physical was performed, and patient medications and allergies were reviewed. The patient's tolerance of previous anesthesia was also reviewed. The risks and benefits of the procedure and the sedation options and risks were discussed with the patient. All questions were answered, and informed consent was obtained. Prior Anticoagulants: The patient has taken no anticoagulant or antiplatelet agents. ASA Grade Assessment: II - A patient with mild systemic disease. After reviewing the risks and benefits, the patient was deemed in satisfactory condition to undergo the procedure. After I obtained informed consent, the scope was passed under direct vision. Throughout the procedure, the patient's blood pressure, pulse, and oxygen saturations were monitored continuously. The colonoscope was introduced through the anus and advanced to 10 cm into the ileum. The colonoscopy was performed without difficulty. The patient tolerated the procedure well. The quality of the bowel preparation was excellent. The terminal ileum, ileocecal valve, appendiceal orifice, and rectum were photographed. At least two forward passes were made through each segment of the colon on withdrawal of the colonoscope. Findings: Skin tags were found on perianal exam. Multiple diverticula were found in the sigmoid colon. Retroflexion in the right colon was performed. A 10 mm polyp was found in the mid ascending colon. The polyp was sessile. Area was successfully injected with 1 mL Eleview and 1:200,000 epinephrine for a lift polypectomy. The polyp was removed with a cold snare. Resection and retrieval were complete. Verification of patient identification for the specimen was done by the physician and nurse using the patient's name and date. The retroflexed view of the distal rectum and anal verge was normal and showed no anal or rectal abnormalities. The entire examined ileum appeared normal. Estimated Blood Loss: Estimated blood loss was minimal. Impression: - Perianal skin tags found on perianal exam. - Diverticulosis in the sigmoid colon. - One 10 mm polyp in the mid ascending colon, removed with a cold snare. Resected and retrieved. Injected. - The examined portion of the ileum was normal. Recommendation: - Patient has a contact number available for emergencies. The signs and symptoms of potential delayed complications were discussed with the patient. Return to normal activities tomorrow. Written discharge instructions were provided to the patient. - Resume previous diet. - Continue present medications. - Await pathology results. - Repeat colonoscopy in 5 years for surveillance. - Return to primary care physician. Procedure Code(s): --- Professional --- 98271, Colonoscopy, flexible; with removal of tumor(s), polyp(s), or other lesion(s) by snare technique 93373, Colonoscopy, flexible; with directed submucosal injection(s), any substance Diagnosis Code(s): --- Professional --- Z12.11, Encounter for screening for malignant neoplasm of colon Z80.0, Family history of malignant neoplasm of digestive organs K63.5, Polyp of colon K64.4, Residual hemorrhoidal skin tags K57.30, Diverticulosis of large intestine without perforation or abscess without bleeding CPT copyright 2020 [employer]. All rights reserved. The codes documented in this report are preliminary and upon senior water/wastewater engineer review may be revised to meet current compliance requirements. Dr. Lev Narayanan, DO Lev Narayanan DO 08/22/2020 10:13:59 AM This report has been signed electronically. Number of Addenda: 0 Note Initiated On: 08/22/2020 9:43 AM Scope Withdrawal Time 0 hours 9 minutes 22 seconds ON [employer] Work Phone: [email or web address]?={[email or web address]} [facility] [employer] Work Phone: CORONAVIRUS 2019, SCREEN ASY MPTOMATICon 08-20-2020 SARS-CoV-2 (COVID-19) RNA EDWARD+probe Ql (Unsp spec) Not detected Normal Not Detected [facility] Comment on above: Result Comment: . This assay is designed to detect SARS-CoV-2 based on replication of specific regions of the RNA from the SARS-CoV-2 virus. A Not Detected result does not preclude 2019-nCoV infection since the adequacy of sample collection and/or low viral burden may result in presence of viral nucleic acids below the clinical sensitivity of this test method. Fact sheet for providers: https://www.fda.gov/media/306256/download Fact sheet for patients: https://www.fda.gov/media/296255/download This test has received FDA Emergency Use Authorization [EUA] and has been verified by [facility] ([facility]). This test is only authorized for the duration of time that circumstances exist to justify the authorization of the emergency use of in vitro diagnostic tests for the detection of SARS-CoV-2 virus and/or diagnosis of COVID-19 infection under section 564(b)(1) of the Act, 21 U.S.C. 360bbb-3(b)(1), unless the authorization is terminated or revoked sooner. [facility] is certified under CLIA-88 as qualified to perform high complexity testing. Testing is performed in the [facility] laboratories located at [address] [place] [address]. Performed By: #### C OVSC #### [place] [address] Covid 19 Resultson 04-28-202 1 SARS-CoV-2 (COVID-19) RNA EDWARD+probe Ql (Unsp spec) NEGATIVE COVID-19 Test Coronaviruses are common world-wide and are the cause of many common colds. SARS-COV2 is a new coronavirus that began circulating worldwide in 2019 so we are calling it COVID-19. It has been estimated that four out of five patients with COVID-19 will recover at home without the need for medical attention. Symptoms of COVID-19 may include cough, fever, shortness of breath, loss of taste or smell and other flu-like symptoms including chills, sore muscles, sore throat, and headache. Severe illness is more common in older people and people with other health problems such as high blood pressure, obesity, and immune system problems. If the test is positive, you have COVID-19. You will be contacted by the ordering physicians office and instructed to remain on home isolation, in accordance with CDC guidelines. You may also be contacted by the [facility] to see if any of your close contacts may have been exposed to the virus and need to quarantine. If the test is negative, you likely do not have COVID-19 at this time, but you still may have a different illness that can spread to other people (like Influenza, or the Flu) and could still be at risk for getting COVID-19. We recommend that you stay away from other people to limit the spread of illness until your symptoms are improving and you are fever-free for 24 hours without the use of fever lowering medications such as acetaminophen or ibuprofen. No test is 100% accurate so if you are still concerned you may have COVID-19, talk to your doctor about the need to continue to stay away from others. Medicines Unless your provider told you not to use the following: Acetaminophen (Tylenol and others) is generally safe. Anti-inflammatory medications, such as Ibuprofen (Advil or Motrin) or Naproxen (Aleve) can also be used. Ctzj-xkj-dmngjnm cough and cold medicines can be used according to the instructions on the package. Some oxsr-yoo-nlcbvzn medicines also contain acetaminophen. Make sure you are not taking more than your recommended dose. For those not hospitalized, there is no specific treatment available for this illness. Antibiotics do not treat Coronaviruses. Follow-Up Follow up with your doctor by scheduling a virtual visit or consider follow-up at one of our urgent care fever clinics. If you are having difficulty breathing, or are very weak and having difficulty standing, this is a medical emergency. Call 911 or have someone take you to the nearest emergency room immediately. If possible, wear a facemask. Additional guidance from the CDC for patients who tested POSITIVE for COVID-19 How to isolate: Isolate yourself in a specific room at home and limit your contact with others. Use a separate bathroom from other members of the household, when possible. Leave home only to get essential medical care. Do not go to work, school or public areas. Avoid using public transportation, ride-sharing, or taxis. Restrict contact with pets and other animals. If you must care for your pet or be around animals while you are sick, wash your hands before and after your interaction and wear a facemask. Make sure that shared spaces in the home have good airflow, such as by an air conditioner or an opened window, weather permitting. Personal Hygiene Procedures: Wear a face mask when in the same room as other people or pets. If a face mask interferes with your breathing, others should wear a mask when sharing space with you. Frequent hand-washing: wash your hands with soap and water for at least 20 seconds. If soap and water are not available, use alcohol-based hand benefits technician. Avoid touching your eyes, nose, and mouth with unwashed hands. Household Hygiene Procedures: Avoid sharing personal household items such as dishes, glassware, cups, eating utensils, towels or bedding with other people or pets in your home. After use, these items should be washed with soap and hot water. Disinfect all high-touch surfaces every day with antibacterial cleaning solutions such as Lysol wipes, bleach, cleansers, etc. High-touch surfaces include tabletops, doorknobs, bathroom fixtures, toilets, phones, keyboards, tablets and bedside tables. Immediately clean any surfaces that may have blood, poop or body fluids on them, using antibacterial cleaning solutions such as Lysol wipes, bleach, cleansers, etc. If clothing or bedding come into contact with blood, poop or body fluids, they should be washed immediately. Follow the directions on the laundry detergent and clothing labels but hot water is recommended when possible. Stopping home isolation precautions: If possible, consult your doctor before stopping home isolation precautions. According to the CDC, you can discontinue home isolation precautions when you have met both of these criteria: Your fever and respiratory symptoms have been gone for 24 francoise (more content not included)... Normal [facility] CORONAVIRUS 2019, SCREEN ASY MPTOMATICon 08-19-2020 Lab Specimen Source Nasal, Nasopharyngeal Normal [facility] Comment on above: Performed By: #### C OVSC #### [facility] [id number] [place] [address]. [place] [address] Coronavirus 2019 RNA by PCR, Screening Asymptomticon 08-19-2020 Coronavirus 2019 RNA by PCR, Screening Asymptomtic Not detected Normal See Below [employer] [facility] Work Phone: Comment on above: SOURCE: Nasal, Nasop haryngealReference Range: Not Detected.This assay is designed to detect SARS-CoV-2 based on replication of specific regions of the RNA from the SARS-CoV-2 virus. A Not Detected result does not preclude 2019-nCoV infection since the adequacy of sample collection and/or low viral burden may result in presence of viral nucleic acids below the clinical sensitivity of this test method. Fact sheet for providers: https://www.fda.gov/media/540028/downloadFact sheet for patients: https://www.fda.gov/media/242210/downloadThis test has received FDA Emergency Use Authorization [EUA] and has been verified by [facility] ([facility]). This test is only authorized for the duration of time that circumstances exist to justify the authorization of the emergency use of in vitro diagnostic tests for the detection of SARS-CoV-2 virus and/or diagnosis of COVID-19 infection under section 564(b)(1) of the Act, 21 U.S.C. 360bbb-3(b)(1), unless the authorization is terminated or revoked sooner. [facility] is certified under CLIA-88 as qualified to perform high complexity testing. Testing is performed in the [facility] laboratories located at [address] [place] [address]. Vital Signs Date Time Vital Sign Value Performing Clinician Facility 10-05-2024 12:56-0400 Body height 166.37 cm Naomi Fung BAKERY HELPER-C Work Phone: [facility] 10-05-2024 12:56-0400 Body mass index (BMI) [Ratio] 37.3 kg/m2 Naomi Fung BAKERY HELPER-C Work Phone: [facility] 10-05-2024 12:56-0400 Body weight 103.41 kg Naomi Fung BAKERY HELPER-C Work Phone: [facility] 10-05-2024 12:56-0400 Diastolic blood pressure 74 mm[Hg] Naomi Fung BAKERY HELPER-C Work Phone: [facility] 10-05-2024 12:56-0400 Heart rate 88 /min Naomi Fung BAKERY HELPER-C Work Phone: [facility] 10-05-2024 12:56-0400 SaO2% (BldA) [Mass fraction] 94 % Naomi Fung BAKERY HELPER-C Work Phone: [facility] 10-05-2024 12:56-0400 Systolic blood pressure 120 mm[Hg] Naomi Fung BAKERY HELPER-C Work Phone: [facility] 08-27-2024 08:09-0400 Body mass index (BMI) [Ratio] 37.7 kg/m2 Naomi Fung BAKERY HELPER-C Work Phone: [facility] 08-27-2024 08:09-0400 Body temperature 97.4 [degF] Naomi Fung BAKERY HELPER-C Work Phone: [facility] 08-27-2024 08:09-0400 Body weight 104.32 kg Naomi Fung BAKERY HELPER-C Work Phone: [facility] 08-27-2024 08:09-0400 Diastolic blood pressure 54 mm[Hg] Naomi Fung BAKERY HELPER-C Work Phone: [facility] 08-27-2024 08:09-0400 Heart rate 78 /min Naomi Fung BAKERY HELPER-C Work Phone: [facility] 08-27-2024 08:09-0400 Respiratory rate 18 /min Naomi Fung BAKERY HELPER-C Work Phone: [facility] 08-27-2024 08:09-0400 SaO2% (BldA) [Mass fraction] 97 % Naomi Fung BAKERY HELPER-C Work Phone: [facility] 08-27-2024 08:09-0400 Systolic blood pressure 108 mm[Hg] Naomi Fung BAKERY HELPER-C Work Phone: [facility] 06-21-2024 08:17-0500 Body height 167.6 cm NAOMI FUNG DAMAGE APPRAISER-DIECAST MACHINE OPERATOR [facility] 06-21-2024 08:17-0500 Body weight 38.09 kg/m2 NAOMI FUNG DAMAGE APPRAISER-DIECAST MACHINE OPERATOR [facility] 06-21-2024 08:17-0500 Body weight 107 kg NAOMI FUNG DAMAGE APPRAISER-DIECAST MACHINE OPERATOR [facility] Comment on above: Result Comment: 230# 04-26-2023 08:15-0500 Body height 165.1 cm BAKERY HELPER-C Naomi Fung BAKERY HELPER Work Phone: [facility] 04-26-2023 08:15-0500 Body weight 101.15 kg BAKERY HELPER-C Naomi Fung BAKERY HELPER Work Phone: [facility] 04-26-2023 08:15-0500 Heart rate 82 /min BAKERY HELPER-C Naomi Fung BAKERY HELPER Work Phone: [facility] 04-26-2023 08:15-0500 SaO2% (BldA) [Mass fraction] 96 % BAKERY HELPER-C Naomi Fung BAKERY HELPER Work Phone: [facility] 04-11-2023 07:03-0500 Body mass index (BMI) [Ratio] 37 kg/m2 BAKERY HELPER-C Naomi Fung BAKERY HELPER Work Phone: [facility] 04-11-2023 07:03-0500 Body temperature 97.4 [degF] BAKERY HELPER-C Naomi Fung BAKERY HELPER Work Phone: [facility] 04-11-2023 07:03-0500 Body weight 102.51 kg BAKERY HELPER-C Naomi Fung BAKERY HELPER Work Phone: [facility] 04-11-2023 07:03-0500 Diastolic blood pressure 78 mm[Hg] BAKERY HELPER-C Naomi Fung BAKERY HELPER Work Phone: [facility] 04-11-2023 07:03-0500 Heart rate 83 /min BAKERY HELPER-C Naomi Fung BAKERY HELPER Work Phone: [facility] 04-11-2023 07:03-0500 Respiratory rate 20 /min BAKERY HELPER-C Naomi Fung BAKERY HELPER Work Phone: [facility] 04-11-2023 07:03-0500 SaO2% (BldA) [Mass fraction] 97 % BAKERY HELPER-C Naomi Fung BAKERY HELPER Work Phone: [facility] 04-11-2023 07:03-0500 Systolic blood pressure 126 mm[Hg] BAKERY HELPER-C Naomi Fung BAKERY HELPER Work Phone: [facility] 05-07-2021 14:00-0500 Mean blood pressure 76 mm[Hg] ANDRE LEZAMA MD [facility] 05-07-2021 12:36-0500 Diastolic blood pressure 80 mm[Hg] ANDRE LEZAMA MD [facility] 05-07-2021 12:36-0500 Heart rate 93 /min ANDRE LEZAMA MD [facility] 05-07-2021 12:36-0500 Respiratory rate 16 /min ANDRE LEZAMA MD [facility] 05-07-2021 12:36-0500 Systolic blood pressure 124 mm[Hg] ANDRE LEZAMA MD [facility] 05-07-2021 10:14-0500 Body temperature 98.96 [degF] ANDRE LEZAMA MD [facility] 05-07-2021 10:14-0500 Diastolic blood pressure 86 mm[Hg] ANDRE LEZAMA MD [facility] 05-07-2021 10:14-0500 Heart rate 74 /min ANDRE LEZAMA MD [facility] 05-07-2021 10:14-0500 Respiratory rate 24 /min ANDRE LEZAMA MD [facility] 05-07-2021 10:14-0500 Systolic blood pressure 124 mm[Hg] ANDRE LEZAMA MD [facility] 05-07-2021 05:22-0500 Diastolic blood pressure 68 mm[Hg] ANDRE LEZAMA MD [facility] 05-07-2021 05:22-0500 Heart rate 68 /min ANDRE LEZAMA MD [facility] 05-07-2021 05:22-0500 Respiratory rate 22 /min ANDRE LEZAMA MD [facility] 05-07-2021 05:22-0500 Systolic blood pressure 135 mm[Hg] ANDRE LEZAMA MD [facility] 05-07-2021 04:18-0500 Heart rate 70 /min ANDRE LEZAMA MD [facility] 05-07-2021 03:00-0500 Mean blood pressure 71 mm[Hg] ANDRE LEZAMA MD [facility] 05-07-2021 01:00-0500 Mean blood pressure 85 mm[Hg] ANDRE LEZAMA MD [facility] 05-06-2021 22:40-0500 Body temperature 98.42 [degF] ANDRE LEZAMA MD [facility] 05-06-2021 17:47-0500 Body height 165 cm ANDRE LEZAMA MD [facility] 05-06-2021 17:47-0500 Body temperature 102.74 [degF] ANDRE LEZAMA MD [facility] 05-06-2021 17:47-0500 Body weight 105.5 kg ANDRE LEZAMA MD [facility] 05-06-2021 17:47-0500 Heart rate 98 /min ANDRE LEZAMA MD [facility] Encounters Encounter Date Encounter Type Care Provider Facility Start: 01-04-2025 ambulatory Naomi Lorson BAKERY HELPER Facil ity:[facility] Start: 01-02-2025 ambulatory Naomi Fung BAKERY HELPER Facil ity:[facility] Start: 12-25-2024 ambulatory NAOMI FUNG DAMAGE APPRAISER-DIECAST MACHINE OPERATOR Facility:[facility] Start: 10-29-2024 End: 11-02-2024 ambulatory OLIVER GONZALEZ MD Facility:[facility] Start: 10-29-2024 End: 11-02-2024 Outreach Lab OLIVER GONZALEZ MD [facility] Start: 10-08-2024 End: 10-08-2024 ambulatory NAOMI FUNG DAMAGE APPRAISER-DIECAST MACHINE OPERATOR Facility:[facility] Start: 10-08-2024 End: 10-08-2024 Patient encounter procedure NAOMI FUNG DAMAGE APPRAISER-DIECAST MACHINE OPERATOR [facility] Start: 10-05-2024 End: 10-05-[address] Dony Kessler MD -[facility] Work Phone: Start: 10-05-2024 End: 10-05-2024 ambulatory Naomi Fung BAKERY HELPER-C Work Phone: [facility] Work Phone: Start: 08-27-2024 End: 08-27-2024 Patient encounter procedure Aure Baumann BAKERY HELPER-C -[facility] Work Phone: Start: 08-27-2024 End: 08-27-2024 ambulatory Aure Baumann NP Facility:[facility] Start: 08-13-2024 End: 08-17-2024 ambulatory NAOMI FUNG DAMAGE APPRAISER-DIECAST MACHINE OPERATOR Facility:[facility] Start: 08-13-2024 End: 08-17-2024 Outreach Lab NAOMI FUNG DAMAGE APPRAISER-DIECAST MACHINE OPERATOR [facility] Start: 07-30-2024 End: 07-30-2024 ambulatory NAOMI FUNG DAMAGE APPRAISER-DIECAST MACHINE OPERATOR Facility:[facility] Start: 06-21-2024 End: 06-21-2024 ambulatory NAOMI FUNG DAMAGE APPRAISER-DIECAST MACHINE OPERATOR Facility:[facility] Start: 06-21-2024 End: 06-21-2024 Patient encounter procedure NAOMI FUNG DAMAGE APPRAISER-DIECAST MACHINE OPERATOR [facility] Start: 06-18-2024 End: 06-18-2024 ambulatory NAOMI FUNG DAMAGE APPRAISER-DIECAST MACHINE OPERATOR Facility:[facility] Start: 06-18-2024 End: 06-18-2024 Patient encounter procedure NAOMI FUNG DAMAGE APPRAISER-DIECAST MACHINE OPERATOR [facility] Start: 06-06-2024 End: 06-06-2024 ambulatory NAOMI ZAMBRANOGILBERT DAMAGE APPRAISER-DIECAST MACHINE OPERATOR Facility:[facility] Start: 06-06-2024 End: 06-06-2024 Patient encounter procedure NAOMI FUNG DAMAGE APPRAISER-DIECAST MACHINE OPERATOR [facility] Start: 05-24-2024 ambulatory NAOMI MARYJO DAMAGE APPRAISER-DIECAST MACHINE OPERATOR Facility:[facility] Start: 05-23-2024 ambulatory Naomi Zambranogilbert BAKERY HELPER Facil ity:[facility] Start: 05-14-2024 End: 05-18-2024 ambulatory NAOMI MARYJO DAMAGE APPRAISER-DIECAST MACHINE OPERATOR Facility:[facility] Start: 05-14-2024 End: 05-18-2024 ambulatory NAOMI FUNG DAMAGE APPRAISER-DIECAST MACHINE OPERATOR Facility:[facility] Start: 12-14-2023 End: 12-14-2023 ambulatory NAOMI MARYJO DAMAGE APPRAISER-DIECAST MACHINE OPERATOR Facility:[facility] Start: 11-16-2023 End: 11-20-2023 ambulatory NAOMI FUNG DAMAGE APPRAISER-DIECAST MACHINE OPERATOR Facility:[facility] Start: 11-16-2023 End: 11-20-2023 Outreach Lab NAOMI FUNG DAMAGE APPRAISER-DIECAST MACHINE OPERATOR [facility] Start: 11-07-2023 End: 11-07-2023 ambulatory NAOMI ZAMBRANOGILBERT DAMAGE APPRAISER-DIECAST MACHINE OPERATOR Facility:[facility] Start: 11-07-2023 End: 11-07-2023 Patient encounter procedure NAOMI FUNG DAMAGE APPRAISER-DIECAST MACHINE OPERATOR [facility] Start: 08-24-2023 End: 08-28-2023 ambulatory NAOMI FUNG DAMAGE APPRAISER-DIECAST MACHINE OPERATOR Facility:[facility] Start: 08-24-2023 End: 08-28-2023 Outreach Lab NAOMI FUNG DAMAGE APPRAISER-DIECAST MACHINE OPERATOR [facility] Start: 06-01-2023 End: 06-05-2023 ambulatory NAOMI FUNG DAMAGE APPRAISER-DIECAST MACHINE OPERATOR Facility:[facility] Start: 06-01-2023 End: 06-05-2023 Outreach Lab NAOMI FUNG DAMAGE APPRAISER-DIECAST MACHINE OPERATOR [facility] Start: 05-23-2023 End: 05-27-2023 ambulatory NAOMI ZAMBRANOGILBERT DAMAGE APPRAISER-DIECAST MACHINE OPERATOR Facility:[facility] Start: 05-23-2023 End: 05-27-2023 Outreach Lab NAOMI FUNG DAMAGE APPRAISER-DIECAST MACHINE OPERATOR [facility] Start: 04-27-2023 Non-patient / Non-visit BAKERY HELPER-C Naomi Fung BAKERY HELPER Work Phone: [facility] Start: 04-26-2023 End: 04-26-2023 ambulatory BAKERY HELPER-C Naomi Fung BAKERY HELPER Work Phone: [facility] Work Phone: Start: 04-26-2023 End: 04-26-2023 Patient encounter procedure BAKERY HELPER-C Naomi Fung BAKERY HELPER Work Phone: [facility]/Neurology Work Phone: Start: 04-11-2023 End: 04-11-2023 Patient encounter procedure BAKERY HELPER-C Naomi Fung BAKERY HELPER Work Phone: [facility] Work Phone: Start: 01-10-2023 End: 01-14-2023 ambulatory NAOMI FUNG DAMAGE APPRAISER-DIECAST MACHINE OPERATOR Facility:[facility] Start: 11-03-2022 End: 11-03-2022 Patient encounter procedure NAOMI ZAMBRANOGILBERT DAMAGE APPRAISER-DIECAST MACHINE OPERATOR [facility] Start: 10-11-2022 End: 10-15-2022 Outreach Lab NAOMI FUNG DAMAGE APPRAISER-DIECAST MACHINE OPERATOR [facility] Start: 06-30-2022 End: 07-04-2022 Outreach Lab NAOMI FUNG DAMAGE APPRAISER-DIECAST MACHINE OPERATOR [facility] Start: 03-31-2022 End: 04-04-2022 Outreach Lab NAOMI FUNG DAMAGE APPRAISER-DIECAST MACHINE OPERATOR [facility] Start: 11-05-2021 End: 11-05-2021 Patient encounter procedure KIRAN HERRON DAMAGE APPRAISER-DIECAST MACHINE OPERATOR [facility] Start: 10-02-2021 End: 10-02-2021 Patient encounter procedure NAOMI FUNG DAMAGE APPRAISER-DIECAST MACHINE OPERATOR [facility] Start: 09-23-2021 End: 09-27-2021 Outreach Lab NAOMI MARYJO DAMAGE APPRAISER-DIECAST MACHINE OPERATOR [facility] Start: 06-18-2021 End: 09-10-[address] MARGARET WELLINGTON DO [facility] Start: 06-01-2021 End: 06-01-[address] MARGARET WELLINGTON DO [facility] Start: 05-06-2021 End: 05-07-2021 Emergency department patient visit ANDRE LEZAMA MD [facility] Procedures Date Procedure Procedure Detail Performing Clinician Start: 01-14-2015 Structure of left an kle (body structure) ANDRE LEZAMA MD Comment on above: Harware removal 01/24 Start: 04-25-1996 History of total hysterectomy ANDRE LEZAMA MD Arthroscopy of knee ANDRE AUSTIN MD Comment on above: and 2004 Plan of Treatment Date Care Activity Detail Author Start: 07-29-2020 Colonoscopy Colonoscopy -[facility] Work Phone: Immunizations Immunization Date Immunization Notes Care Provider Fa cili 06-01-2023 influenza, high dose seasonal, preservative-free; Translations: [Fluad Quadrivalent PF ] NAOMI FUNG DAMAGE APPRAISERSeedInvest [facility] 10-18-2022 Pneumococcal conjuga te PCV20, polysaccharide [id number] conjugate, adjuvant, PF; Translations: [Prevnar 20] NAOMI FUNG DAMAGE [employer]Se[employer] [facility] 04-07-2022 influenza, high dose seasonal, preservative-free NAOMI FUNG DAMAGE [employer] [facility] 03-23-2020 influenza virus vacc ine, unspecified formulation DR MARGARET WELLINGTON DO [facility] 12-26-[address] MARGARET WELLINGTON DO [facility] 09-26-[address] MARGRAET WELLINGTON DO [facility] 08-15-[address] MARGARET WELLINGTON DO [facility] 05-04-2016 influenza virus vacc ine, unspecified formulation DR MARGARET WELLINGTON DO [facility] 01-29-2015 influenza virus vacc ine, unspecified formulation DR MARGARET WELLINGTON DO [facility] 01-29-2015 influenza, injectabl e, quadrivalent, preservative free [employer] Naomi Fung NP Work Phone: [facility] 01-23-2015 influenza virus vacc ine, unspecified formulation DR MARGARET WELLINGTON DO [facility] 03-20-2013 influenza virus vacc ine, unspecified formulation DR MARGARET WELLINGTON DO [facility] 03-10-2012 influenza virus vacc ine, unspecified formulation DR MARGARET WELLINGTON DO [facility] Payers Date Payer Category Payer Medicare [id number] 2024 Self-pay [id number] 2023 Private Health Insurance [id number] 2023 Medicare [id number] 2022 Private Health Insurance [facility] [id number] 2022 Unknown [id number] 1955 Unknown [id number] 2.16.840.1.264993.3.579.2 .1955 Unknown [id number] 2.16.840.1.813069.3.579.2 .1955 Unknown [id number] 2.16.840.1.214496.3.579.2 .1955 Unknown [id number] 2.16.840.1.122083.3.579.2 .1955 Unknown [id number] 2.16.840.1.792308.3.579.2 .1955 Unknown [id number] 2.16.840.1.767044.3.579.2 .1955 Unknown [id number] 2.16.840.1.619951.3.579.2 .1955 Unknown [id number] 2.16.840.1.002413.3.579.2 .1955 Unknown [id number] 2.16.840.1.873021.3.579.2 .1955 Unknown [id number] 2.16.840.1.995245.3.579.2 .1955 Unknown [id number] 2.16.840.1.454426.3.579.2 .1955 Unknown [id number] 2.16.840.1.229478.3.579.2 .1955 Unknown [id number] 2.16.840.1.820537.3.579.2 .1955 Unknown [id number] 2.16.840.1.685933.3.579.2 .1955 Unknown [id number] 2.16.840.1.087311.3.579.2 .1955 Unknown [id number] 2.16.840.1.021470.3.579.2 .627 1955 Unknown [id number] 2.16.840.1.105222.3.579.2 .627 1957 Unknown [id number] 2.16.840.1.260918.3.579.2 .627 1955 Unknown [id number] 2.16.840.1.426157.3.579.2 .627 Medicare MEDICARE SUPPLEMENT PLAN [id number] Unknown [facility] [id number] Unknown [id number] 2.16.840.1.978798.3.579.2 .462 Unknown [id number] 2.16.840.1.398218.3.579.2 .462 Unknown [id number] 2.16.840.1.294685.3.579.2 .462 Unknown [id number] 2.16.840.1.819393.3.579.2 .462 Unknown [id number] 2.16.840.1.704883.3.579.2 .462 Social History Date Type Detail Facility Assertion Tobacco smoking consumption unknown (finding) [facility] Work Phone: Start: 10-15-2019 End: 09-13-2023 Ex-smoker (finding) [facility] Start: 1955 Sex Assigned At Female A [facility] Start: 04-11-2023 [facility] Start: 01-18-2015 Occasional [facility] Start: 01-18-2015 None [facility] Start: 01-18-2015 Alone [facility] Start: 01-18-2015 Cigarettes [facility] Sexual Orientation Thiago Gimenez Start: 10-18-2018 Sex Female (finding) [facility] Medical Equipment Procedure Code Equipment Code Equipment Origin al Text Equipment Identifier Dates See Instructions , 1 bottle of 100 Test once daily E11.9, # 1 EA, 11 Refill(s), Pharmacy: [facility], 167.6, cm, 05/21/24 8:02:00 EST, Height, 107, kg, 05/21/24 8:02:00 EST, Dosing Weight Start: 05-21-2024 See Instructions , qs 1 month supply Test once daily E11.9, # 1 EA, 11 Refill(s), Pharmacy: [facility], 167.6, cm, 05/21/24 8:02:00 EST, Height, 107, kg, 05/21/24 8:02:00 EST, Dosing Weight Start: 05-21-2024 See Instructions , 1 bottle of 100 Test once daily E11.9, # 1 EA, 11 Refill(s), Pharmacy: [facility], 167.6, cm, 05/21/24 8:02:00 EST, Height, 107, kg, 05/21/24 8:02:00 EST, Dosing Weight Start: 05-21-2024 See Instructions , qs 1 month supply Test once daily E11.9, # 1 EA, 11 Refill(s), Pharmacy: [facility], 167.6, cm, 05/21/24 8:02:00 EST, Height, 107, kg, 05/21/24 8:02:00 EST, Dosing Weight Start: 05-21-2024 See Instructions , 1 bottle of 100 Test once daily E11.9, # 1 EA, 11 Refill(s), Pharmacy: [facility], 167.6, cm, 05/21/24 8:02:00 EST, Height, 107, kg, 05/21/24 8:02:00 EST, Dosing Weight Start: 05-21-2024 See Instructions , qs 1 month supply Test once daily E11.9, # 1 EA, 11 Refill(s), Pharmacy: [facility], 167.6, cm, 05/21/24 8:02:00 EST, Height, 107, kg, 05/21/24 8:02:00 EST, Dosing Weight Start: 05-21-2024 See Instructions , 1 bottle of 100 Test once daily E11.9, # 1 EA, 11 Refill(s), Pharmacy: [facility], 167.6, cm, 05/21/24 8:02:00 EST, Height, 107, kg, 05/21/24 8:02:00 EST, Dosing Weight Start: 05-21-2024 See Instructions , qs 1 month supply Test once daily E11.9, # 1 EA, 11 Refill(s), Pharmacy: [facility], 167.6, cm, 05/21/24 8:02:00 EST, Height, 107, kg, 05/21/24 8:02:00 EST, Dosing Weight Start: 05-21-2024 See Instructions , 1 bottle of 100 Test once daily E11.9, # 1 EA, 11 Refill(s), Pharmacy: [facility], 167.6, cm, 05/21/24 8:02:00 EST, Height, 107, kg, 05/21/24 8:02:00 EST, Dosing Weight Start: 05-21-2024 See Instructions , qs 1 month supply Test once daily E11.9, # 1 EA, 11 Refill(s), Pharmacy: [facility], 167.6, cm, 05/21/24 8:02:00 EST, Height, 107, kg, 05/21/24 8:02:00 EST, Dosing Weight Start: 05-21-2024 See Instructions , 1 bottle of 100 Test once daily E11.9, # 1 EA, 11 Refill(s), Pharmacy: [facility], 167.6, cm, 05/21/24 8:02:00 EST, Height, 107, kg, 05/21/24 8:02:00 EST, Dosing Weight Start: 05-21-2024 See Instructions , qs 1 month supply Test once daily E11.9, # 1 EA, 11 Refill(s), Pharmacy: [facility], 167.6, cm, 05/21/24 8:02:00 EST, Height, 107, kg, 05/21/24 8:02:00 EST, Dosing Weight Start: 05-21-2024 See Instructions , 1 bottle of 100 Test once daily E11.9, # 1 EA, 11 Refill(s), Pharmacy: [facility], 167.6, cm, 05/21/24 8:02:00 EST, Height, 107, kg, 05/21/24 8:02:00 EST, Dosing Weight Start: 05-21-2024 See Instructions , qs 1 month supply Test once daily E11.9, # 1 EA, 11 Refill(s), Pharmacy: [facility], 167.6, cm, 05/21/24 8:02:00 EST, Height, 107, kg, 05/21/24 8:02:00 EST, Dosing Weight Start: 05-21-2024 Functional Status Date Assessment Result Facility NEGATED: Highlighted row Functional performance Functional status health issues are not documented [facility] [email or web address] Work Phone: Mental Status Date Assessment Result Facility NEGATED: Highlighted row Cognitive function [Interpretation] Cognitive status health issues are not documented Disease [facility] [email or web address] Work Phone: Clinical Notes 05-06-2021 to 08-27-2024 Note Date & Type Note Facility 08-27-2024 Evaluation note Diagnosis Onset Date Resolution Asthma-COPD overlap syndrome chronic August 27, 2024 12 :23pm Obesity chronic August 27, 2024 12:23pm Obstructive sleep apnea chronic M 2024 12:23pm Elevated liver function tests noneactive October 05, 2024 12:46pm [facility] Work Phone: [phone] 387-592302-12-2025 Note* Exam Date Time Procedure Performing Provider Status 06/06/24 9:44 AM US Abdomen Limited LINN FUNEZ MD; A [facility] (Verified) [id number] ORIGINAL EXAMINATION: LIMITED ABDOMINAL ULTRASOUND06/06/2024 9:49 am Limited ultrasound of the abdomen attention right upper quadrant COMPARISON: None TECHNIQUE: This report is based on interpretation of permanently recorded ultrasound images. HISTORY: ORDERING SYSTEM PROVIDED HISTORY: Reason for Exam: elevated liver enzymes, FINDINGS: The gallbladder is distended satisfactorily without calculi, wall thickening, pericholecystic edema or tenderness. Mild adenomyomatosis of the anterior gallbladder wall is of no clinical significance. There is no intrahepatic bile duct dilatation. The common duct is 7 mm at the goldie hepatis. This is considered normal for age. The adjacent main portal vein shows antegrade blood flow.. The visualized liver shows coarsening of echotexture and mildly increased echogenicity. No suspicious focal mass is seen. No obvious nodularity of the liver margins. The visualized pancreas shows no focal lesion or mass but some portions are obscured by bowel gas artifacts. No ascites is seen in the RIGHT upper quadrant. Limited survey images of the RIGHT kidney show normal cortical thickness and echogenicity with no pelvocaliectasis. IMPRESSION: Hepatic steatosis or other diffuse hepatocellular disease. No acute findings. Interpreted by: Linn Funez MD Preliminary Report By: Linn Funez MD Electronically signed By Linn Funez MD Dictated Date: 06/06/2024 12:38:12 PM Prelim Date: 06/06/2024 12:39:26 PM Sign Date: 06/06/2024 12:39:26 PM Ordering Provider: NAOMI FUNG [facility]02-12-2025 Note* Exam Date Time Procedure Performing Provider Status 06/06/24 9:17 AM Echocardiogram, Adult - CV SHERRY, AT [facility]; Auth (Verified) [facility]01-03-2024 Procedure [facility]01-12-2022 Hospital Discharge instructions Patient Education 05/06/2021 19:56:27 Using Oxygen Safely Using Oxygen Safely Using prescribed oxygen can help you avoid shortness of breath. It can also improve sleep and mental alertness. And it can help you to be more active. But you must follow important safety guidelines when using your oxygen unit. This will reduce the chances of fire and other hazards. Remember these do s and don ts: Oxygen do s These include: Do keep flame sources at least 5 feet away from where your oxygen unit is used or stored. Open flames should be kept at least 10 feet away. This includes cigarettes, matches, candles, fireplaces, gasburners, and pipes. It also includes anything else that could start a fire. Never smoke or use an open flame when wearing oxygen. Do keep the oxygen unit at least 5 feet away from heat sources. These include space heaters, electric or gas heaters, steam pipes, furnaces, and radiators. Do ask the [employer] if you should keep the oxygen unit away from other appliances,such as TVs and radios. Do turn off the oxygen unit completely when it s not in use. Do have a fire extinguisher nearby. Make sure you and others in your home know how to use it. Do be careful not to trip over the oxygen tubing. Oxygen don'ts These include: Don t smoke, and don t let others smoke near you. Post a No Smoking sign in your home. Don t use aerosol sprays such as air fresheners or hairspray near the oxygen unit. Aerosols are very flammable. Don t use vapor rubs, petroleum jelly, or oil-based hand lotion. These are flammable. Use water-based products instead. Don t use oxygen while cooking with gas. Ask the [employer] about other types of cooking. Don t oil the oxygen unit. And don t use it with oily or greasy hands. Don t place a liquid oxygen unit on its side. The oxygen inside can evaporate. Oxygen should alwaysbe stored upright in a secured device. Don't touch the oxygen unit with wet hands from using an alcohol-based hand benefits technician. When using an alcohol-based hand benefits technician, rub all of the liquid into your skin. Your hands must be completely dry before touching the oxygen unit. [id number] [employer]. [address] [place] [address]. All rights reserved. This information is not intended as a substitute for professional medical care. Always follow yourhealthcare professional's instructions. 05/06/2021 19:56:21 Hypoglycemia, Nondiabetic Nondiabetic Hypoglycemic Reaction You have had an episode of low blood sugar (hypoglycemia). A single episode of hypoglycemia does not mean that this problem will recur. There are many causes for low blood sugar. These include eatinghighly refined starchy foods (carbohydrates), drinking too much alcohol, intense exercise, fatigue,stress, poor diet, , and certain illnesses. Your blood sugar level may also be affected by tobacco, caffeine, and certain medicines, including: Aspirin Haloperidol Propoxyphene Chlorpromazine Propranolol Disopyramide MELLY inhibitors Quinolones (certain antibiotics) Many of the medicines used by people with diabetes to lower their blood sugar A class of medicine called beta-blockers is used for high blood pressure, rapid heart rates, and other conditions. Beta-blockers may prevent the early symptoms of low blood sugar. If you are taking abeta-jake, you might not realize that your blood sugar is getting low. If you are taking a beta-jake and are prone to low blood sugar, talk to your healthcare provider about switching to a diffe rent class of medicine. The beta-jake class includes: Propranolol Atenolol Metoprolol Nadolol Labetalol Carvedilol Home care Rest today and resume a normal diet. Eliminate any of the above known causes where possible. Check with your healthcare provider before changing any of your medicines. The proper diet for true hypoglycemia (diagnosed with a glucose tolerance test) is high protein (20% of calories), low carbohydrate (50% of calories), and moderate fat (30% of calories) in 6 small meals per day. If this is your first episode of low blood sugar, or if you have not yet been tested with a glucoseor mixed meal tolerance test, eat small frequent meals rather than fewer large meals. Limit starchyfoods during the next 1 to 2 days to avoid a recurrence of low blood sugar. It is important to learn the warning signals your body gives as your blood sugar starts to drop. See the symptoms listed below. If symptoms of hypoglycemia return Keep a source of fast-acting sugar with you. At the first sign of low blood sugar, eat or drink 15 to 20 grams of fast-acting sugar. Examples include: o3 to 4 glucose tablets (found at most drugstores) o4 ounces of regular soda (don't use diet soda) o4 ounces of fruit juice o2 tablespoons of raisins o1 tablespoon of honey o8 ounces of nonfat or 1% milk oHard candies, gumdrops, or jellybeans (check the package for serving size) Also, eat a regular meal, with protein and fat, to help stabilize your blood sugar. If consuming fast-acting sugar does not improve your symptoms within 20 minutes, call [address] emergency [address]'t drive yourself. If you have severe hypoglycemic spells, wear a medical alert bracelet or carry a card in your wallet describing this condition. If you have a severe hypoglycemic reaction and are unable to give this information, it will help medical staff provide proper care. Follow-up care Follow up with your healthcare provider, or as advised. When to seek medical advice Call your healthcare provider right away if any of these symptoms of low blood sugar occur. Fatigue or headache Trembling or excess sweating Hunger Feeling anxious or restless Vision changes Irritability Sleepiness Dizziness Call 911 Call 911 if any of these occur: Drowsiness Weakness Confusion Loss of consciousness [phone] [employer] [place] [address]. All rights reserved. This information is not intended as a substitute for professional medical care. Always follow yourhealthcare professional's instructions. 05/06/2021 19:56:14 Viral Syndrome (Adult) Viral Syndrome (Adult) A viral illness may cause a number of symptoms such as fever. Other symptoms depend on the part of the body that the virus affects. If it settles in your nose, throat, and lungs, it may cause cough, sore throat, congestion, runny nose, headache, earache and other ear symptoms, or shortness of breath. If it settles in your stomach and intestinal tract, it may cause nausea, vomiting, cramping, and diarrhea. Sometimes it causes generalized symptoms like aching all over, feeling tired, loss of energy, or loss of appetite. A viral illness usually lasts anywhere from several days to several weeks, but sometimes it lasts longer. In some cases, a more serious infection can look like a viral syndrome in the first few days of the illness. You may need another exam and additional tests to know the difference. Watch for thewarning signs listed below for when to seek medical advice. Home care Follow these guidelines for taking care of yourself at home: If symptoms are severe, rest at home for the first 2 to 3 days. Stay away from cigarette smoke - both your smoke and the smoke from others. You may use lwup-tug-yczmoyz acetaminophen or ibuprofen for fever, muscle aching, and headache, unless another medicine was prescribed for this. If you have chronic liver or kidney disease or ever had a stomach ulcer or gastrointestinal bleeding, talk with your healthcare provider before using these medicines. No one who is younger than 18 and ill with a fever should take aspirin. It may cause severe disease or . Your appetite may be poor, so a light diet is fine. Avoid dehydration by drinking 8 to 12, 8-ounce glasses of fluids each day. This may include water; orange juice; lemonade; apple, grape, and cranberry juice; clear fruit drinks; electrolyte replacement and sports drinks; and decaffeinated teas andcoffee. If you have been diagnosed with a kidney disease, ask your healthcare provider how much andwhat types of fluids you should drink to prevent dehydration. If you have kidney disease, drinking too much fluid can cause it build up in the your body and be dangerous to your health. Iqey-cox-ustwmrp remedies won't shorten the length of the illness but may be helpful for symptoms such as cough, sore throat, nasal and sinus congestion, or diarrhea. Don't use decongestants if you have high blood pressure. Follow-up care Follow up with your healthcare provider if you do not improve over the next week. Call 911 Call 911 if any of the following occur: Convulsion Feeling weak, dizzy, or like you are going to faint Chest pain, or more than mild shortness of breath When to seek medical advice Call your healthcare provider right away if any of these occur: Cough with lots of colored sputum (mucus) or blood in your sputum Chest pain, shortness of breath, wheezing, or trouble breathing Severe headache; face, neck, or ear pain Severe, constant pain in the lower right side of your belly (abdominal) Continued vomiting (can t keep liquids down) Frequent diarrhea (more than 5 times a day); blood (red or black color) or mucus in diarrhea Feeling weak, dizzy, or like you are going to faint Extreme thirst Fever of 100.4 F (38 C) or higher, or as directed by your healthcare provider [phone] [employer] [address] [place] [address]. All rights reserved. This information is not intended as a substitute for professional medical care. Always follow yourhealthcare professional's instructions. Follow Up Care 05/06/2021 17:39:17 With:Call Physician Referral Address:Unknown When:2-4 days With:Call Physician Referral Address:Unknown When:2-4 days [facility] Evaluation + Plan note Future Appointments Appointment Date:09/09/2021 07:00:00 AM Scheduled Provider:NAOMI FUNG Location:[facility] Appointment Type:PC OV Future Scheduled Tests Laboratory* Lipid Profile 07/21/21 * Complete Metabolic Panel 07/21/21 [facility] Evaluation + Plan note Future Appointments Appointment Date:09/09/2021 07:00:00 AM Scheduled Provider:NAOMI FUNG Location:[facility] Appointment Type:PC OV Future Scheduled Tests Laboratory* Lipid Profile 07/21/21 * Complete Metabolic Panel 07/21/21 Radiology* XR Chest 2 Views (PA & Lateral) 06/01/21 [facility] Evaluation + Plan note Future Appointments Appointment Date:09/23/2021 09:15:00 AM Scheduled Provider: Location:[facility] Appointment Type:PC Nurse Lab Appointment Date:10/02/2021 08:00:00 AM Scheduled Provider: Location:[facility] Appointment Type:CV Procedure - AOH Echo Appointment Date:10/07/2021 07:00:00 AM Scheduled Provider:NAOMI FUNG Location:[facility] Appointment Type:PC Wellness Annual Future Scheduled Tests Laboratory* Iron Level 09/09/21 * Complete Blood Count 09/09/21 * Lipid Profile 07/21/21 * Complete Metabolic Panel 07/21/21 Radiology* XR Chest 2 Views (PA & Lateral) 06/01/21 [facility] Evaluation + Plan note Future Appointments Appointment Date:10/02/2021 08:00:00 AM Scheduled Provider: Location:[facility] Appointment Type:CV Procedure - AOH Echo Appointment Date:10/07/2021 07:00:00 AM Scheduled Provider:NAOMI FUNG Location:[facility] Appointment Type:PC Wellness Annual Future Scheduled Tests Laboratory* Lipid Profile 07/21/21 Radiology* XR Chest 2 Views (PA & Lateral) 06/01/21 [facility] Evaluation + Plan note Future Appointments Appointment Date:10/07/2021 07:00:00 AM Scheduled Provider:NAOMI FUNG Location:[facility] Appointment Type:PC Wellness Annual Future Scheduled Tests Laboratory* Lipid Profile 07/21/21 Radiology* XR Chest 2 Views (PA & Lateral) 06/01/21 [facility] Evaluation + Plan note Future Appointments Appointment Date:03/31/2022 09:15:00 AM Scheduled Provider: Location:[facility] Appointment Type:PC Nurse Lab Appointment Date:04/07/2022 07:30:00 AM Scheduled Provider:NAOMI FUNG Location:[facility] Appointment Type:PC OV Future Scheduled Tests Laboratory* A1C Hemoglobin 04/08/22 * Complete Blood Count 04/08/22 * Lipid Profile 07/21/21 * Lipid Profile 04/08/22 * Complete Metabolic Panel 04/08/22 Radiology* XR Chest 2 Views (PA & Lateral) 06/01/21 * XR Chest 2 Views (PA & Lateral) 10/07/21 [facility] Evaluation + Plan note Future Appointments Appointment Date:04/07/2022 07:30:00 AM Scheduled Provider:NAOMI FUNG Location:[facility] Appointment Type:PC OV Future Scheduled Tests Laboratory* Lipid Profile 07/21/21 Radiology* XR Chest 2 Views (PA & Lateral) 06/01/21 * XR Chest 2 Views (PA & Lateral) 10/07/21 [facility] Evaluation + Plan note Future Appointments Appointment Date:07/07/2022 08:00:00 AM Scheduled Provider:NAOMI FUNG Location:[facility] Appointment Type:PC OV Future Scheduled Tests Laboratory* Lipid Profile 07/21/21 Radiology* XR Chest 2 Views (PA & Lateral) 10/07/21 [facility] Evaluation + Plan note Future Appointments Appointment Date:10/18/2022 08:30:00 AM Scheduled Provider:NAOMI FUNG Location:[facility] Appointment Type: Wellness Medicare [facility] Evaluation + Plan note Future Appointments Appointment Date:01/10/2023 08:30:00 AM Scheduled Provider: Location:[facility] Appointment Type:PC Nurse Lab Appointment Date:01/17/2023 09:00:00 AM Scheduled Provider:NAOMI FUNG Location:[facility] Appointment Type:PC OV Future Scheduled Tests Laboratory* Iron Level 10/18/22 * A1C Hemoglobin 01/18/23 * Complete Blood Count 10/18/22 * Complete Metabolic Panel 01/18/23 [facility] Evaluation + Plan note Future Appointments Appointment Date:06/01/2023 07:30:00 AM Scheduled Provider:NAOMI FUNG Location:[facility] Appointment Type:PC OV [facility] Evaluation + Plan note Future Appointments Appointment Date:08/22/2023 08:30:00 AM Scheduled Provider: Location:[facility] Appointment Type:PC Nurse Lab Appointment Date:08/31/2023 07:30:00 AM Scheduled Provider:NAOMI FUNG Location:[facility] Appointment Type:PC OV Lab Check Future Scheduled Tests Laboratory* A1C Hemoglobin 08/30/23 * Complete Metabolic Panel 08/30/23 [facility] Evaluation + Plan note Future Appointments Appointment Date:08/31/2023 07:30:00 AM Scheduled Provider:NAOMI FUNG Location:[facility] Appointment Type:PC OV Lab Check [facility] Evaluation + Plan note Future Appointments Appointment Date:11/16/2023 07:30:00 AM Scheduled Provider: Location:[facility] Appointment Type:PC Nurse Lab Appointment Date:11/23/2023 07:30:00 AM Scheduled Provider:NAOMI FUNG Location:[facility] Appointment Type:PC Wellness Medicare with Labs Future Scheduled Tests Laboratory* A1C Hemoglobin 12/01/23 * Complete Blood Count 12/01/23 * Lipid Profile 12/01/23 * Complete Metabolic Panel 12/01/23 [facility] Evaluation + Plan note Future Appointments Appointment Date:11/23/2023 07:30:00 AM Scheduled Provider:NAOMI FUNG [facility] Appointment Type:PC Wellness Medicare with Labs [facility] Evaluation + Plan note Future Appointments Appointment Date:06/18/2024 10:00:00 AM Scheduled Provider: Location:[facility] Appointment Type:PF Complete PFT w/Bronchodilator Appointment Date:08/13/2024 08:00:00 AM Scheduled Provider: Location:[facility] Appointment Type:PC Nurse Lab Appointment Date:08/20/2024 08:00:00 AM Scheduled Provider:NAOMI FUNG Location:[facility] Appointment Type:PC OV Lab Check Future Scheduled Tests Laboratory* A1C Hemoglobin 08/19/24 * Complete Blood Count 08/19/24 * Lipid Profile 08/19/24 * Vitamin D Level 08/19/24 * Complete Metabolic Panel 08/19/24 Radiology* XR Chest 2 Views (PA & Lateral) 05/21/24 [facility] Evaluation + Plan note Future Appointments Appointment Date:06/21/2024 08:00:00 AM Scheduled Provider: Location:[facility] Appointment Type:NUT Diet Visit Individual Appointment Date:08/13/2024 08:00:00 AM Scheduled Provider: Location:[facility] Appointment Type:PC Nurse Lab Appointment Date:08/20/2024 08:00:00 AM Scheduled Provider:NAOMI FUNG Location:[facility] Appointment Type:PC OV Lab Check Future Scheduled Tests Laboratory* A1C Hemoglobin 08/19/24 * Complete Blood Count 08/19/24 * Lipid Profile 08/19/24 * Vitamin D Level 08/19/24 * Complete Metabolic Panel 08/19/24 Radiology* XR Chest 2 Views (PA & Lateral) 05/21/24 [facility] Evaluation + Plan note Future Appointments Appointment Date:08/13/2024 08:00:00 AM Scheduled Provider: [facility] Appointment Type:PC Nurse Lab Appointment Date:08/20/2024 08:00:00 AM Scheduled Provider:NAOMI FUNG [facility] Appointment Type:PC OV Lab Check Future Scheduled Tests Laboratory* A1C Hemoglobin 08/19/24 * Complete Blood Count 08/19/24 * Lipid Profile 08/19/24 * Vitamin D Level 08/19/24 * Complete Metabolic Panel 08/19/24 Radiology* XR Chest 2 Views (PA & Lateral) 05/21/24 [facility] Evaluation + Plan note Future Appointments Appointment Date:08/20/2024 08:00:00 AM Scheduled Provider:NAOMI FUNG Location:[facility] Appointment Type:PC OV Lab Check Appointment Date:10/08/2024 08:00:00 AM Scheduled Provider: Location:[facility] Appointment Type:NUT Diet Visit Individual Future Scheduled Tests Radiology* XR Chest 2 Views (PA & Lateral) 05/21/24 [facility] Evaluation + Plan note Future Appointments Appointment Date:10/29/2024 09:30:00 AM Scheduled Provider: [facility] Appointment Type:PC Nurse Lab Appointment Date:11/19/2024 07:30:00 AM Scheduled Provider:NAOMI FUNG Location:[facility] Appointment Type:PC Wellness Medicare Future Scheduled Tests Laboratory* A1C Hemoglobin 11/19/24 * Acute Hepatitis Panel 08/20/24 * Vitamin D Level 11/19/24 * Complete Metabolic Panel 11/19/24 Radiology* XR Chest 2 Views (PA & Lateral) 05/21/24 [facility] Evaluation + Plan note Future Appointments Appointment Date:11/21/2024 07:30:00 AM Scheduled Provider:NAOMI FUNG [facility] Appointment Type:PC Wellness Medicare Future Scheduled Tests Radiology* XR Chest 2 Views (PA & Lateral) 05/21/24 [facility] evaluation note* Diagnosis Onset Date Resolution Status Asthma-COPD overlap syndrome [facility] Work Phone: Hospital course Narrative No data available for this section [facility] Hospital Discharge instructions No data available for this section [facility] Instructions* Name Dates Details Instructions not documented -[facility] Work Phone: Progress note No data available for this section [facility] Reason for referral (narrative)[facility] Work [facility]: Summary Purpose Family History No Family History Records Found Relationship Condition Age at Onset Recorded Date/T yohan Unknown Family History?Diabe asiya, Heart Disease, Hypertension Unknown January 14, 2015 6:45pm Family History?Diabe asiya, Heart Disease, Hypertension Unknown January 18, 2015 12:27pm Relationship Condition Age at Onset Recorded Date/T yohan mother Asthma Unknown Cardiac disease Unknown Hypertension Unknown father Cardiac disease Unknown Advance Directives No Advanced Directives Records Found Advance Directive Response Recorded Date/ Time Advance Directives No 2015 10:07am Living Will No February 07 10:07am Power of General Road Production Manager No 2015 10:07am Advance Directive Response Recorded Date/ Time Living Will No February 07 11:07am Do you have a Healthcare Power of General Road Production Manager? No 2015 11:07am Advance Directives No 2015 11:07am Chief Complaint and Reason for Visit Chief Complaint Dyspnea COPD COPD Reason for Visit Asthma-COPD overlap syndrome Chief Complaint Admit Date 1 Y FU August 27, 2024 12:23p m Elevated LFTs October 05, 2024 12:4 6pm Reason for Visit Admit Date Asthma-COPD overlap syndrome August 27 12:23pm Obesity August 27, 2024 12:23p m Obstructive sleep apnea August 27, 2024 12 :23pm Elevated liver function tests October 05, 2024 12:46pm Additional Source Comments INFORMATION SOURCE (unrecogn ized section and content) DATE CREATED AUTHOR 08/23/2020 [facility] [place] DATE CREATED AUTHOR 'S ORGANIZ ATION 12/16/2023 [facility] ([place] DATE CREATED AUTHOR AUTHOR'S ORGANIZ ATION 12/26/2024 [facility] DATE CREATED AUTHOR AUTHOR'S ORGANIZ ATION 01/01/2025 [facility] Care Team (unrecognized sect ion and content) Team Status: Active Member Role Status Dates Dr. Juliane Khan MD Family Provider Active Naomi Fung BAKERY HELPER, BAKERY HELPER-C Primary Care Provider Active Team Status: Inactive Member Role Status Dates Dr. Abdirahman Powell , Attending Provider Active Team Status: Active Member Role Status Dates Naomi Fung BAKERY HELPER, BAKERY HELPER-C Primary Care Provider Active Dr. Abdirahman Powell , Referring Provider, Other Provide r Active Dr. Mono Navarrete MD Attending Provider Active Team Status: Inactive Member Role Status Dates Naomi Fung BAKERY HELPER, BAKERY HELPER-C Primary Care Provider Active Dr. Abdirahman Powell , Attending Provider, Referring Pro vider Active Team Status: Inactive Member Role Status Dates Naomi Fung BAKERY HELPER, BAKERY HELPER-C Primary Care Provider Active Start: August 27, 2024 End: August 27, 2024 Naomi Fung BAKERY HELPER, BAKERY HELPER-C Referring Provider Active Start: August 27, 2024 End: August 27, 2024 Aure Baumann BAKERY HELPER, BAKERY HELPER-C Attending Provider Active Start: August 27, 2024 End: August 27, 2024 Team Status: Inactive Member Role Status Dates Naomi Fung BAKERY HELPER, BAKERY HELPER-C Primary Care Provider Active Start: October 05, 2024 End: October 05, 2024 Naomi Fung BAKERY HELPER, BAKERY HELPER-C Referring Provider Active Start: October 05, 2024 End: October 05, 2024 Dr. Dony Kessler MD Attending Provider Active Start: October 05, 2024 End: October 05, 2024 Care Team (unrecognized sect ion and content) Care Team Personnel Name: NAOMI FUNG APRN-DIECAST MACHINE OPERATOR Position: P4 Advanced Practice Nurse Med Service: Active Provider Member Role: Primary Care Physician Address: Address: [address] [place] [address]- Care Team Related Persons Name: ERIN BOBO Care Team Personnel Name: NAOMI FUNG DAMAGE APPRAISER-DIECAST MACHINE OPERATOR Position: P4 Advanced Practice Nurse Member Role: Primary Care Physician Address: Address: [address] [place] [address]- Care Team Related Persons Name: ERIN BOBO Care Team Personnel Name: NAOMI FUNG DAMAGE APPRAISER-DIECAST MACHINE OPERATOR Position: P4 Advanced Black Top Roller Member Role: Primary Care Physician Address: Address: [address] [place] [address] [place] [address]- Care Team Related Persons Name: ELIEZER BOBOTY Goals (unrecognized section and content) Goals may be documented in a n alternate section FOR RECORDS PERTAINING TO PATIENTS WHO ARE OR HAVE BEEN ENROLLED IN A CHEMICAL DEPENDENCY/SUBSTANCEABUSE PROGRAM, SOME INFORMATION MAY BE OMITTED. This clinical summary was aggregated from multiple sources. Caution should be exercised in using it in the provision of clinical care. This summary normalizes information from multiple sources, and as a consequence, information in this document may materially change the coding, format and clinical context of patient data. In addition, data may be omitted in some cases. CLINICAL DECISIONS SHOULD BE BASED ON THE PRIMARY CLINICAL RECORDS. [facility] [employer] provides no warranty or guarantee of the accuracy or completeness of information in this document.
[2025-01-02 08:11] LABS: Hematocrit 42.8 % (37-47); Hemoglobin 13.9 g/dL (12.0-15.0); Immature Granulocytes Count 0.030 X10^3/uL (0.0-0.0); Mean Corp Hgb Conc 32.5 g/dL (32-36); Mean Corpuscular Volume 90.7 fL (81-99); Mean Platelet Vol. 10.7 fl (6.2-12.0); NRBC Flagged by Analyzer 0 % (0-5); Platelet Count 298 K/mm3 (150-450); RBC Distribution Width CV 15.0 % (11.6-14.6); RBC Distribution Width SD 49.7 fl (35.1-43.9); Red Blood Count 4.72 M/mm3 (4.2-5.4); White Blood Count 3.8 K/mm3 (4.4-11.0)
[2025-01-02 08:56] LABS: AST(SGOT) 74 U/L (<=31); Alanine Aminotransfer ALT/SGPT 76 U/L (<=34); Albumin, Serum 4.1 g/dL (3.4-4.8); Alkaline Phosphatase 89 U/L (35-104); Anion Gap 12 (5-15); BUN 18 mg/dL (4-19); BUN/Creat Ratio 20.4 RATIO (10-20); Calcium,Total 9.6 mg/dL (7.6-11.0); Carbon Dioxide 25.3 mmol/L (21.0-32.0); Chloride 103 mmol/L (98-108); Cholesterol 154 mg/dL (<=200); Ferritin 134 ng/mL (22-378); Globulin 3.4 g/dL (2.2-4.2); Glucose 120 mg/dL (70-99); Low Density Lipoprotein Calc. 96 mg/dL; Potassium 4.3 mmol/L (3.3-5.1); Triglycerides 77 mg/dL; Very Low Density Lipoprotein 15 mg/dL (5-40); cholesterol:hdl ratio screen 3.63
[2025-01-02 09:18] LABS: CRP 9.77 mg/L (0.0-3.0); Iron 151 ug/dL (50-170); Iron Binding Capacity,Total 372 ug/dL (250-450); Iron Binding Capacity,Unsat 221 ug/dL (228-428)
[2025-01-02 09:28] LABS: Prothrombin Time (Protime)PT. 13.8 SECONDS (11.7-14.9)
[2025-01-04 11:08] LABS: ANTINUCLEAR ANTIBODIES DIRECT Negative (Negative); Albumin 3.6 g/dL (2.9-4.4); Anti-Smooth Muscle ABS 9 Units (0-19); Gamma Globulin 1.4 g/dL (0.4-1.8); HEPATITIS B SURFACE AG Negative (Negative); Hep C Antibodies Non Reactive (Non Reactive); Immunoglobulin A 264 mg/dL (87-352); Immunoglobulin G 1364 mg/dL (586-1602); Immunoglobulin M 208 mg/dL (26-217); PROEL- TOTAL PROTEIN 7.0 g/dL (6.0-8.5)
== END | disposition home or self-care (01) ==
PROVIDERS: PCP Nurse Practitioner Family; Referring Provider Internal Medicine; Visit Provider Internal Medicine
DX: E66.812 Obesity, class 2 (principal); K74.60 Unspecified cirrhosis of liver; Z68.37 Body mass index [BMI] 37.0-37.9, adult; I10 Essential (primary) hypertension; R73.03 Prediabetes
CPT/HCPCS: 36415; 76705; 76981; 80053; 80061; 80074; 82105; 82728; 82784; 83036; 83516; 83540; 83550; 84165; 84443; 85025; 85610; 86038; 86140; 86225; 86334; 86706